=== PATIENT | female | born 1935 | race Caucasian/White ===

== ENCOUNTER 2016-10-07 07:02 | Outpatient (CLI) | payer MEDICARE, BC | END 2016-10-07 07:03 | disposition home or self-care (01) | DX: I48.91 Unspecified atrial fibrillation (principal); Z79.01 Long term (current) use of anticoagulants ==

== ENCOUNTER 2016-11-04 06:56 | Outpatient (CLI) | payer MEDICARE, BC | END 2016-11-04 06:57 | disposition home or self-care (01) | DX: I48.91 Unspecified atrial fibrillation (principal); Z79.01 Long term (current) use of anticoagulants ==

== ENCOUNTER 2016-12-02 06:59 | Outpatient (CLI) | payer MEDICARE, BC | END 2016-12-02 07:00 | disposition home or self-care (01) | DX: I48.91 Unspecified atrial fibrillation (principal); Z79.01 Long term (current) use of anticoagulants ==

== ENCOUNTER 2016-12-30 06:54 | Outpatient (CLI) | payer MEDICARE, BC | END 2016-12-30 06:55 | disposition home or self-care (01) | DX: I48.91 Unspecified atrial fibrillation (principal); Z79.01 Long term (current) use of anticoagulants ==

== ENCOUNTER 2017-01-27 06:52 | Outpatient (CLI) | payer MEDICARE, BC | END 2017-01-27 06:53 | disposition home or self-care (01) | DX: I48.91 Unspecified atrial fibrillation (principal); Z79.01 Long term (current) use of anticoagulants ==

== ENCOUNTER 2017-02-03 06:54 | Outpatient (CLI) | payer MEDICARE, BC | END 2017-02-03 06:55 | disposition home or self-care (01) | LOC: LAB 06:54 | PROVIDERS: ATTEND Internal Medicine | DX: I48.91 Unspecified atrial fibrillation (principal); Z79.01 Long term (current) use of anticoagulants | CPT/HCPCS: 85610 ==

== ENCOUNTER 2017-03-03 06:49 | Outpatient (CLI) | payer MEDICARE, BC | END 2017-03-03 06:50 | disposition home or self-care (01) | LOC: LAB 06:49 | PROVIDERS: ATTEND Internal Medicine | DX: I48.91 Unspecified atrial fibrillation (principal); Z79.01 Long term (current) use of anticoagulants | CPT/HCPCS: 85610 ==

== ENCOUNTER 2017-03-31 06:56 | Outpatient (CLI) | payer MEDICARE, BC | END 2017-03-31 06:57 | disposition home or self-care (01) | LOC: LAB 06:56 | PROVIDERS: ATTEND Internal Medicine | DX: I48.91 Unspecified atrial fibrillation (principal); Z79.01 Long term (current) use of anticoagulants | CPT/HCPCS: 85610 ==

== ENCOUNTER 2017-04-18 06:57 | Outpatient (CLI) | payer MEDICARE, BC | END 2017-04-18 06:58 | disposition home or self-care (01) | LOC: LAB 06:57 | PROVIDERS: ATTEND Internal Medicine | DX: I48.91 Unspecified atrial fibrillation (principal); Z79.01 Long term (current) use of anticoagulants | CPT/HCPCS: 85610 ==

== ENCOUNTER 2017-04-21 10:49 | Outpatient (CLI) | payer MEDICARE, BC ==
[2017-04-21 11:16] LABS: CREATININE 0.7 mg/dL (0.4-1.0)
== END 2017-04-21 10:50 | disposition home or self-care (01) ==
LOC: LAB 10:49
PROVIDERS: ATTEND Surgery
DX: C50.912 Malignant neoplasm of unspecified site of left female breast (principal)
CPT/HCPCS: 36415; 82565; 84520

== ENCOUNTER 2017-04-22 08:39 | Outpatient (CLI) | payer MEDICARE, BC ==
[2017-04-22] MEDS ORDERED: GADOBUTROL 7.5 MMOL/7.5 ML VIAL IVP ONE (09:43)
--- NOTE | 2017-04-22 16:49 | MRI Report ---
BILATERAL BREAST MRI WITH AND WITHOUT CONTRAST: 04/22/2017 CLINICAL INDICATION: Biopsy-proven left breast cancer. TECHNIQUE: Using a dedicated breast coil, axial precontrast STIR, dynamic postcontrast axial 3D images, axial 3D high-resolution images, and postcontrast diffusion-weighted images were obtained; 5 mL of Gadavist was administered intravenously. Postprocessing with dynamic contrast enhancement analysis and multiplanar reformations were performed with [employer] FINDINGS: The breasts demonstrate moderate background parenchymal enhancement. RIGHT BREAST: No mass or abnormal enhancement is appreciated in the right breast. The right axillary lymph nodes appear morphologically normal. LEFT BREAST: The biopsy proven left breast cancer in the axillary tail is seen , measuring 2.3 x 2.2 x 2.0 cm. It only demonstrates moderate rapid enhancement with washout. No other mass or abnormal enhancement is seen in the left breast. There is no evidence of skin, nipple, or chest wall involvement. The left axillary lymph nodes appear morphologically normal. IMPRESSION: BIOPSY-PROVEN LEFT BREAST CANCER, MEASURING 2.3 CM MAXIMAL DIAMETER. NO EVIDENCE OF SKIN, NIPPLE, OR CHEST WALL INVOLVEMENT. RECOMMENDATION: Continued surgical management. BI-RADS category 6, known malignancy. COMMENT: Breast MRI is a highly sensitive examination, and has a cancer detection threshold down to approximately 5 mm; however, it only has moderate specificity. Although breast MRI has a high negative predicted value, appropriate clinical and mammographic followup are always necessary. MRI may miss less angiogenic tumors; therefore, it should not be used to avoid a biopsy which is otherwise clinically indicated. Normal appearing lymph nodes may contain microscopic tumor. Due to prone positioning, the described location of findings may differ from other modalities. JOB #: [id number] EXT JOB #: [id number] JENNIFER
== END 2017-04-22 08:40 | disposition home or self-care (01) ==
LOC: LAB 08:39
PROVIDERS: ATTEND Surgery
DX: C50.912 Malignant neoplasm of unspecified site of left female breast (principal)
CPT/HCPCS: A9585; C8908; 77059

== ENCOUNTER 2017-05-02 06:55 | Outpatient (CLI) | payer MEDICARE, BC | END 2017-05-02 06:56 | disposition home or self-care (01) | LOC: LAB 06:55 | PROVIDERS: ATTEND Internal Medicine | DX: I48.91 Unspecified atrial fibrillation (principal); Z79.01 Long term (current) use of anticoagulants | CPT/HCPCS: 85610 ==

== ENCOUNTER 2017-05-26 06:52 | Outpatient (CLI) | payer MEDICARE, BC | END 2017-05-26 06:53 | disposition home or self-care (01) | LOC: LAB 06:52 | PROVIDERS: ATTEND Internal Medicine | DX: I48.91 Unspecified atrial fibrillation (principal); Z79.01 Long term (current) use of anticoagulants | CPT/HCPCS: 85610 ==

== ENCOUNTER 2017-06-09 07:00 | Outpatient (CLI) | payer MEDICARE, BC | END 2017-06-09 07:01 | disposition home or self-care (01) | LOC: LAB 07:00 | PROVIDERS: ATTEND Internal Medicine | DX: I48.91 Unspecified atrial fibrillation (principal); Z79.01 Long term (current) use of anticoagulants | CPT/HCPCS: 85610 ==

== ENCOUNTER 2017-06-23 06:55 | Outpatient (CLI) | payer MEDICARE, BC | END 2017-06-23 06:56 | disposition home or self-care (01) | LOC: LAB 06:55 | PROVIDERS: ATTEND Internal Medicine | DX: I48.91 Unspecified atrial fibrillation (principal); Z79.01 Long term (current) use of anticoagulants | CPT/HCPCS: 85610 ==

== ENCOUNTER 2017-07-21 06:52 | Outpatient (CLI) | payer MEDICARE, BC | END 2017-07-21 06:53 | disposition home or self-care (01) | LOC: LAB 06:52 | PROVIDERS: ATTEND Internal Medicine | DX: I48.91 Unspecified atrial fibrillation (principal); Z79.01 Long term (current) use of anticoagulants | CPT/HCPCS: 85610 ==

== ENCOUNTER 2017-08-18 07:15 | Outpatient (CLI) | payer MEDICARE, BC ==
[2017-08-18 07:48] LABS: PT - PROTHROMBIN TIME 50.7 secs (9.9-12.6)
[2017-08-18 08:06] LABS: INR 4.8 (0.8-1.2)
== END 2017-08-18 07:16 | disposition home or self-care (01) ==
LOC: LAB 07:15
PROVIDERS: ATTEND Internal Medicine
DX: I48.91 Unspecified atrial fibrillation (principal); Z79.01 Long term (current) use of anticoagulants
CPT/HCPCS: 85610

== ENCOUNTER 2017-09-01 07:15 | Outpatient (CLI) | payer MEDICARE, BC | END 2017-09-01 07:16 | disposition home or self-care (01) | LOC: LAB 07:15 | PROVIDERS: ATTEND Internal Medicine | DX: I48.91 Unspecified atrial fibrillation (principal); Z79.01 Long term (current) use of anticoagulants | CPT/HCPCS: 85610 ==

== ENCOUNTER 2017-09-06 10:09 | Outpatient (CLI) | payer MEDICARE, BC ==
--- NOTE | 2017-09-07 19:06 | Ultrasound Report ---
DATE OF SERVICE: 09/06/2017 LEFT BREAST ULTRASOUND: 09/06/2017 CLINICAL INDICATION: Recent lumpectomy for left breast cancer, possible seroma at surgery site. COMPARISON: Diagnostic mammogram of the same day. TECHNIQUE: Real-time scanning was performed with client care representative static images obtained. FINDINGS: Ultrasound of the palpable abnormality in the left upper outer quadrant was performed. At this site, there is a complex fluid collection, measuring 3.7 x 2.1 x 2.9 cm. No abnormal flow is identif ied. No sonographically suspicious findings are identified. IMPRESSION: A 3.7 cm seroma in the operative bed. RECOMMENDATIONS: Diagnostic bilateral mammogram in 6 months. BIRADS category 3 - Probable benign findings. TD: 09/06/2017 19:43
--- NOTE | 2017-09-08 16:12 | Mammography Report ---
DATE OF SERVICE: 09/06/2017 DIGITAL DIAGNOSTIC LEFT MAMMOGRAM: 09/06/2017 CLINICAL INDICATION: Postop lumpectomy for left breast cancer, palpable abnormality in the surgical bed. COMPARISON: 04/11/2017, 03/24/2017, 06/04/2011, 02/26/2010. TECHNIQUE: Left CC, MLO, true lateral and spot magnification views. FINDINGS: The left breast demonstrates scattered fibroglandular densities. At the lumpectomy site in the left upper outer posterior breast, there is a lobulated circumscribed nodule, measuring 3.5 cm in diameter. No associated calcifications are seen. Post-radiation changes are evident. Please also refer to left breast ultrasound of the same day. IMPRESSION: Probable benign findings, with a postoperative seroma in the surgical bed. RECOMMENDATION: Diagnostic bilateral mammogram in 6 months. BIRADS category 3 - Probable benign findings. STANDARD QUALIFYING STATEMENTS 1. This examination was reviewed with the aid of Computed-Aided Detection (CAD) . 2. A negative or benign imaging report should not delay biopsy if clinically suspicious findings are present. Consider surgical consultation if warranted. More than 5% of cancers are not identified by imaging. 3. Dense breasts may obscure an underlying neoplasm. TD: 09/06/2017 19:48 JENNIFER
== END 2017-09-06 10:10 | disposition home or self-care (01) ==
LOC: DI 10:09
PROVIDERS: ATTEND Internal Medicine
DX: L76.34 Postprocedural seroma of skin and subcutaneous tissue following other procedure (principal)
CPT/HCPCS: 76642; G0206

== ENCOUNTER 2017-09-15 07:02 | Outpatient (CLI) | payer MEDICARE, BC | END 2017-09-15 07:03 | disposition home or self-care (01) | LOC: LAB 07:02 | PROVIDERS: ATTEND Internal Medicine | DX: I48.91 Unspecified atrial fibrillation (principal); Z79.01 Long term (current) use of anticoagulants | CPT/HCPCS: 85610 ==

== ENCOUNTER 2017-09-22 06:50 | Outpatient (CLI) | payer MEDICARE, BC | END 2017-09-22 06:51 | disposition home or self-care (01) | LOC: LAB 06:50 | PROVIDERS: ATTEND Internal Medicine | DX: I48.91 Unspecified atrial fibrillation (principal); Z79.01 Long term (current) use of anticoagulants | CPT/HCPCS: 85610 ==

== ENCOUNTER 2017-10-06 06:53 | Outpatient (CLI) | payer MEDICARE, BC | END 2017-10-06 06:54 | disposition home or self-care (01) | LOC: LAB 06:53 | PROVIDERS: ATTEND Internal Medicine | DX: I48.91 Unspecified atrial fibrillation (principal); Z79.01 Long term (current) use of anticoagulants | CPT/HCPCS: 85610 ==

== ENCOUNTER 2017-10-13 06:58 | Outpatient (CLI) | payer MEDICARE, BC | END 2017-10-13 06:59 | disposition home or self-care (01) | LOC: LAB 06:58 | PROVIDERS: ATTEND Internal Medicine | DX: I48.91 Unspecified atrial fibrillation (principal); Z79.01 Long term (current) use of anticoagulants | CPT/HCPCS: 85610 ==

== ENCOUNTER 2017-10-27 07:23 | Outpatient (CLI) | payer MEDICARE, BC | END 2017-10-27 07:24 | disposition home or self-care (01) | LOC: LAB 07:23 | PROVIDERS: ATTEND Internal Medicine | DX: I48.91 Unspecified atrial fibrillation (principal); Z79.01 Long term (current) use of anticoagulants | CPT/HCPCS: 85610 ==

== ENCOUNTER 2017-11-10 06:58 | Outpatient (CLI) | payer MEDICARE, BC | END 2017-11-10 06:59 | disposition home or self-care (01) | LOC: LAB 06:58 | PROVIDERS: ATTEND Internal Medicine | DX: I48.91 Unspecified atrial fibrillation (principal); Z79.01 Long term (current) use of anticoagulants | CPT/HCPCS: 85610 ==

== ENCOUNTER 2017-12-01 06:56 | Outpatient (CLI) | payer MEDICARE, BC | END 2017-12-01 06:57 | disposition home or self-care (01) | LOC: LAB 06:56 | PROVIDERS: ATTEND Internal Medicine | DX: I48.91 Unspecified atrial fibrillation (principal); Z79.01 Long term (current) use of anticoagulants | CPT/HCPCS: 85610 ==

== ENCOUNTER 2017-12-15 13:41 | Outpatient (CLI) | payer MEDICARE, BC ==
--- NOTE | 2017-12-16 15:12 | Ultrasound Report ---
REVISED: REPORT ORIGINALLY SIGNED ON 12/16/2017@1520; ORDERS LINKED ON 2017 jll LEFT BREAST MAMMOGRAM, AND ULTRASOUND: 12/15/2017 HISTORY: Left breast cancer, status post surgery and radiation therapy. Left upper outer quadrant lump. COMPARISON: 09/06/2017, 04/11/2017, 03/24/2017, 06/04/2011, and 02/26/2010. TECHNIQUE: Unilateral left digital mammography to include spot compression views. FINDINGS: The breast tissue is heterogeneously dense. There is diffuse skin thickening consistent with radiation therapy. In the left upper outer quadrant, there is a lobulated mass which has decreased both in size and density since 09/06/2017. Vascular calcification is present. There is no new dominant mass, architectural distortion, suspicious clustered microcalcifications or other abnormality. LEFT BREAST ULTRASOUND TECHNIQUE: Real-time scanning by the operational risk manager with saved static images reviewed. COMPARISON: Ultrasound 09/06/2017. FINDINGS: There is a complex cystic and solid collection in the left upper quadrant similar in overall appearance, but decreased in size, currently measuring 2.9 x 3.2 x 2.0 cm, previously 2.9 x 3.7 x 2.1 cm. No suspicious features are seen. IMPRESSION: LEFT UPPER OUTER QUADRANT SEROMA HAS MINIMALLY DECREASED IN SIZE COMPARED WITH 09/06/2017. DIFFUSE LEFT BREAST SKIN THICKENING IS CONSISTENT WITH RADIATION THERAPY CHANGE. NO SUSPICIOUS NEW FINDINGS ARE SEEN. PROBABLY BENIGN - BI-RADS 3. RECOMMENDATION: Suggest followup diagnostic left breast mammogram in 6 months and clinical followup with her breast surgeon. STANDARD QUALIFYING STATEMENTS 1. This examination was reviewed with the aid of Computed-Aided Detection (CAD) . 2. A negative or benign imaging report should not delay biopsy if clinically suspicious findings are present. Consider surgical consultation if warranted. More than 5 % of cancers are not identified by imaging. 3. Dense breasts may obscure an underlying neoplasm. TD: 12/15/2017 17:24 JENNIFER
== END 2017-12-15 13:42 | disposition home or self-care (01) ==
LOC: DI 13:41
PROVIDERS: ATTEND Internal Medicine
DX: C50.912 Malignant neoplasm of unspecified site of left female breast (principal); N64.89 Other specified disorders of breast
CPT/HCPCS: 76642

== ENCOUNTER 2017-12-29 06:58 | Outpatient (CLI) | payer MEDICARE, BC | END 2017-12-29 06:59 | disposition home or self-care (01) | LOC: LAB 06:58 | PROVIDERS: ATTEND Internal Medicine | DX: I48.91 Unspecified atrial fibrillation (principal); Z79.01 Long term (current) use of anticoagulants | CPT/HCPCS: 85610 ==

== ENCOUNTER 2018-01-12 06:52 | Outpatient (CLI) | payer MEDICARE, BC | END 2018-01-12 06:53 | disposition home or self-care (01) | LOC: LAB 06:52 | PROVIDERS: ATTEND Internal Medicine | DX: I48.91 Unspecified atrial fibrillation (principal); Z79.01 Long term (current) use of anticoagulants | CPT/HCPCS: 85610 ==

== ENCOUNTER 2018-01-26 06:56 | Outpatient (CLI) | payer MEDICARE, BC | END 2018-01-26 06:57 | disposition home or self-care (01) | LOC: LAB 06:56 | PROVIDERS: ATTEND Internal Medicine | DX: I48.91 Unspecified atrial fibrillation (principal); Z79.01 Long term (current) use of anticoagulants | CPT/HCPCS: 85610 ==

== ENCOUNTER 2018-02-09 06:52 | Outpatient (CLI) | payer MEDICARE, BC | END 2018-02-09 06:53 | disposition home or self-care (01) | LOC: LAB 06:52 | PROVIDERS: ATTEND Internal Medicine | DX: I48.91 Unspecified atrial fibrillation (principal); Z79.01 Long term (current) use of anticoagulants | CPT/HCPCS: 85610 ==

== ENCOUNTER 2018-03-09 06:53 | Outpatient (CLI) | payer MEDICARE, BC ==
[2018-03-09 09:03] LABS: INR 3.7 (0.8-1.2); PT - PROTHROMBIN TIME 39.3 secs (9.9-12.6)
== END 2018-03-09 06:54 | disposition home or self-care (01) ==
LOC: LAB 06:53
PROVIDERS: ATTEND Internal Medicine
DX: I48.91 Unspecified atrial fibrillation (principal); Z79.01 Long term (current) use of anticoagulants
CPT/HCPCS: 36415; 85610

== ENCOUNTER 2018-03-23 06:57 | Outpatient (CLI) | payer MEDICARE, BC | END 2018-03-23 06:58 | disposition home or self-care (01) | LOC: LAB 06:57 | PROVIDERS: ATTEND Internal Medicine | DX: I48.91 Unspecified atrial fibrillation (principal); Z79.01 Long term (current) use of anticoagulants | CPT/HCPCS: 85610 ==

== ENCOUNTER 2018-03-30 06:49 | Outpatient (CLI) | payer MEDICARE, BC | END 2018-03-30 06:50 | disposition home or self-care (01) | LOC: LAB 06:49 | PROVIDERS: ATTEND Internal Medicine | DX: I48.91 Unspecified atrial fibrillation (principal); Z79.01 Long term (current) use of anticoagulants | CPT/HCPCS: 85610 ==

== ENCOUNTER 2018-04-06 06:54 | Outpatient (CLI) | payer MEDICARE, BC | END 2018-04-06 06:55 | disposition home or self-care (01) | LOC: LAB 06:54 | PROVIDERS: ATTEND Internal Medicine | DX: I48.91 Unspecified atrial fibrillation (principal); Z79.01 Long term (current) use of anticoagulants | CPT/HCPCS: 85610 ==

== ENCOUNTER 2018-04-20 06:52 | Outpatient (CLI) | payer MEDICARE, BC | END 2018-04-20 06:53 | disposition home or self-care (01) | LOC: LAB 06:52 | PROVIDERS: ATTEND Internal Medicine | DX: I48.91 Unspecified atrial fibrillation (principal); Z79.01 Long term (current) use of anticoagulants | CPT/HCPCS: 85610 ==

== ENCOUNTER 2018-05-04 06:53 | Outpatient (CLI) | payer MEDICARE, BC | END 2018-05-04 06:54 | disposition home or self-care (01) | LOC: LAB 06:53 | PROVIDERS: ATTEND Internal Medicine | DX: I48.91 Unspecified atrial fibrillation (principal); Z79.01 Long term (current) use of anticoagulants | CPT/HCPCS: 85610 ==

== ENCOUNTER 2018-06-01 06:53 | Outpatient (CLI) | payer MEDICARE, BC | END 2018-06-01 06:54 | disposition home or self-care (01) | LOC: LAB 06:53 | PROVIDERS: ATTEND Internal Medicine | DX: I48.91 Unspecified atrial fibrillation (principal); Z79.01 Long term (current) use of anticoagulants | CPT/HCPCS: 85610 ==

== ENCOUNTER 2018-06-29 07:03 | Outpatient (CLI) | payer MEDICARE, BC | END 2018-06-29 07:04 | disposition home or self-care (01) | LOC: LAB 07:03 | PROVIDERS: ATTEND Internal Medicine | DX: I48.91 Unspecified atrial fibrillation (principal); Z79.01 Long term (current) use of anticoagulants | CPT/HCPCS: 85610 ==

== ENCOUNTER 2018-07-06 12:22 | Outpatient (CLI) | payer MEDICARE, BC ==
--- NOTE | 2018-07-07 10:15 | XRAY Report ---
Reason: COCCYX PAIN,SACROILIAC PAIN Procedure Date: 07/06/2018 Accession Number: [id number] / [id number] Procedure: XR - Sacrum/Coccyx CPT Code: FULL RESULT: EXAM: SACRUM AND COCCYX RADIOGRAPHY. EXAM DATE: 07/06/2018 01:03 PM. HISTORY: Coccyx pain, sacroiliac pain. History of osteoporosis. COMPARISONS: None. TECHNIQUE: 3 views. FINDINGS: Alignment: Anatomic alignment. Expected segmentation of the coccyx. No bony erosions. No periosteal reaction or distinct evidence for erosions. Bones: No acute fracture or bony lesion. Bones appear demineralized. Joints: Degenerative change of the lower lumbar spine and both sacroiliac joints and both hip joints. Soft Tissues: Vascular calcifications. IMPRESSION: 1. No acute osseous abnormalities. 2. Degenerative changes. RADIA
== END 2018-07-06 12:23 | disposition home or self-care (01) ==
LOC: DI 12:22
PROVIDERS: ATTEND Nurse Practitioner Primary Care
DX: M53.3 Sacrococcygeal disorders, not elsewhere classified (principal)
CPT/HCPCS: 72220

== ENCOUNTER 2018-07-13 07:07 | Outpatient (CLI) | payer MEDICARE, BC | END 2018-07-13 07:08 | disposition home or self-care (01) | LOC: LAB 07:07 | PROVIDERS: ATTEND Internal Medicine | DX: I48.91 Unspecified atrial fibrillation (principal); Z79.01 Long term (current) use of anticoagulants | CPT/HCPCS: 85610 ==

== ENCOUNTER 2018-08-09 12:01 | Outpatient (CLI) | payer MEDICARE, BC ==
--- NOTE | 2018-08-09 13:33 | Mammography Report ---
Reason: LT BREAST CA Procedure Date: 08/09/2018 Accession Number: [id number] / [id number] Procedure: ALYSSA - Diagnostic Dig LT CPT Code: FULL RESULT: EXAM: Diagnostic Dig LT DATE: 08/09/2018 1:02 PM CLINICAL HISTORY: 83-year-old female with history of left breast lumpectomy in May 2017 presents for six-month follow-up diagnostic mammogram. TECHNIQUE: Left breast CC, MLO, ML and exaggerated CC views were obtained COMPARISON: Prior studies dating back to 03/24/2017. FINDINGS: The left breast demonstrates heterogeneously dense fibroglandular parenchyma. Postoperative changes including a decreasing well-circumscribed mass previously characterized as seroma which has decreased in size and now measures 2.1 x 1.9 cm, probably benign. Typically benign vascular calcifications are again seen. No suspicious mass, architectural distortion or calcifications are identified. IMPRESSION: Probable benign findings RECOMMENDATION: Recommend diagnostic bilateral mammogram in 6 months. BIRADS CATEGORY 3 STANDARD QUALIFYING STATEMENTS: 1. This examination was not reviewed with the aid of Computer-Aided Detection (CAD). 2. A negative or benign imaging report should not delay biopsy if clinically suspicious findings are present. Consider surgical consultation if warrented. More than 5% of cancers are not identified by imaging. 3. Dense breasts may obscure an underlying neoplasm. 4. This examination was reviewed with the aid of 3D imaging (tomography).
== END 2018-08-09 12:02 | disposition home or self-care (01) ==
LOC: DI 12:01
PROVIDERS: ATTEND Internal Medicine
DX: C50.912 Malignant neoplasm of unspecified site of left female breast (principal)

== ENCOUNTER 2018-08-10 06:56 | Outpatient (CLI) | payer MEDICARE, BC | END 2018-08-10 06:57 | disposition home or self-care (01) | LOC: LAB 06:56 | PROVIDERS: ATTEND Internal Medicine | DX: I48.91 Unspecified atrial fibrillation (principal); Z79.01 Long term (current) use of anticoagulants | CPT/HCPCS: 85610 ==

== ENCOUNTER 2018-08-25 07:19 | Outpatient (CLI) | payer MEDICARE, BC ==
[2018-08-25 07:54] LABS: CHOL/HDL RATIO 2.3 (<4.4); CHOLESTEROL 195 mg/dL; HDL CHOLESTEROL 84 mg/dL; LDL CHOLESTEROL,CALCULATED 95 mg/dL; LDL/HDL RATIO 1.1 (<4.4); VLDL CHOLESTEROL 16 mg/dL
== END 2018-08-25 07:20 | disposition home or self-care (01) ==
LOC: LAB 07:19
PROVIDERS: ATTEND Nurse Practitioner Primary Care
DX: Z79.899 Other long term (current) drug therapy (principal); I48.0 Paroxysmal atrial fibrillation; E78.5 Hyperlipidemia, unspecified
CPT/HCPCS: 36415; 80061; 83721; 84443

== ENCOUNTER 2018-09-07 07:17 | Outpatient (CLI) | payer MEDICARE, BC | END 2018-09-07 07:18 | disposition home or self-care (01) | LOC: LAB 07:17 | PROVIDERS: ATTEND Internal Medicine | DX: I48.91 Unspecified atrial fibrillation (principal); Z79.01 Long term (current) use of anticoagulants | CPT/HCPCS: 85610 ==

== ENCOUNTER 2018-10-05 07:13 | Outpatient (CLI) | payer MEDICARE, BC | END 2018-10-05 07:14 | disposition home or self-care (01) | LOC: LAB 07:13 | PROVIDERS: ATTEND Internal Medicine | DX: I48.91 Unspecified atrial fibrillation (principal); Z79.01 Long term (current) use of anticoagulants | CPT/HCPCS: 85610 ==

== ENCOUNTER 2018-11-02 07:11 | Outpatient (CLI) | payer MEDICARE, BC | END 2018-11-02 07:12 | disposition home or self-care (01) | LOC: LAB 07:11 | PROVIDERS: ATTEND Internal Medicine | DX: I48.91 Unspecified atrial fibrillation (principal); Z79.01 Long term (current) use of anticoagulants | CPT/HCPCS: 85610 ==

== ENCOUNTER 2018-12-07 07:06 | Outpatient (CLI) | payer MEDICARE, BC | END 2018-12-07 07:07 | disposition home or self-care (01) | LOC: LAB 07:06 | PROVIDERS: ATTEND Internal Medicine | DX: I48.0 Paroxysmal atrial fibrillation (principal); Z79.01 Long term (current) use of anticoagulants | CPT/HCPCS: 85610 ==

== ENCOUNTER 2018-12-19 07:12 | Outpatient (CLI) | payer MEDICARE, BC | END 2018-12-19 07:13 | disposition home or self-care (01) | LOC: LAB 07:12 | PROVIDERS: ATTEND Internal Medicine | DX: I48.0 Paroxysmal atrial fibrillation (principal); Z79.01 Long term (current) use of anticoagulants | CPT/HCPCS: 85610 ==

== ENCOUNTER 2018-12-26 07:28 | Outpatient (CLI) | payer MEDICARE, BC | END 2018-12-26 07:29 | disposition home or self-care (01) | LOC: LAB 07:28 | PROVIDERS: ATTEND Internal Medicine | DX: I48.0 Paroxysmal atrial fibrillation (principal); Z79.01 Long term (current) use of anticoagulants | CPT/HCPCS: 85610 ==

== ENCOUNTER 2019-01-02 07:03 | Outpatient (CLI) | payer MEDICARE, BC | END 2019-01-02 07:04 | disposition home or self-care (01) | LOC: LAB 07:03 | PROVIDERS: ATTEND Internal Medicine | DX: I48.0 Paroxysmal atrial fibrillation (principal); Z79.01 Long term (current) use of anticoagulants | CPT/HCPCS: 85610 ==

== ENCOUNTER 2019-01-09 07:18 | Outpatient (CLI) | payer MEDICARE, BC | END 2019-01-09 07:19 | disposition home or self-care (01) | LOC: LAB 07:18 | PROVIDERS: ATTEND Internal Medicine | DX: I48.0 Paroxysmal atrial fibrillation (principal); Z79.01 Long term (current) use of anticoagulants | CPT/HCPCS: 85610 ==

== ENCOUNTER 2019-01-15 11:54 | Outpatient (CLI) | payer MEDICARE, BC ==
--- NOTE | 2019-01-15 15:00 | Mammography Report ---
Reason: L BREAST CANCER Procedure Date: 01/15/2019 Accession Number: [id number] / [id number] Procedure: ALYSSA - Diagnostic Dig Bilat CPT Code: FULL RESULT: EXAM: Diagnostic Dig Bilat DATE: 01/15/2019 1:52 PM CLINICAL HISTORY: Diagnostic examination. Personal history of left breast cancer status post lumpectomy and radiation in 2017. History of negative right breast biopsy in 2017. TECHNIQUE: (B) - Bilateral CC and MLO views were obtained. A left laterally exaggerated cc view is obtained. COMPARISON: 08/09/2018 through 02/26/2010. PARENCHYMAL PATTERN: (D) - The breast(s) demonstrate(s) heterogeneously dense fibroglandular parenchyma. FINDINGS: Posttreatment changes including skin thickening of the left breast are redemonstrated with expected interval evolution in the surgical bed in the surgical bed. There are bilateral typically benign vascular calcifications. There are right typically benign calcifications. A biopsy marker is seen on the right. There are no suspicious masses, calcifications, or areas of distortion. IMPRESSION: Probably Benign. BI-RADS category 3. RECOMMENDATION: (6MOS) - Recommend 6 month follow-up exam. Left breast diagnostic mammogram. BI-RADS CATEGORY: (3) - Probably Benign. STANDARD QUALIFYING STATEMENTS: 1. This examination was not reviewed with the aid of Computer-Aided Detection (CAD). 2. A negative or benign imaging report should not preclude biopsy if clinically suspicious findings are present. 3. Dense breasts may obscure an underlying neoplasm. 4. This examination was reviewed without the aid of 3D breast imaging (tomosynthesis).
== END 2019-01-15 11:55 | disposition home or self-care (01) ==
LOC: DI 11:54
PROVIDERS: ATTEND Internal Medicine
DX: C50.912 Malignant neoplasm of unspecified site of left female breast (principal)
CPT/HCPCS: 77066

== ENCOUNTER 2019-01-16 07:13 | Outpatient (CLI) | payer MEDICARE, BC | END 2019-01-16 07:14 | disposition home or self-care (01) | LOC: LAB 07:13 | PROVIDERS: ATTEND Internal Medicine | DX: I48.0 Paroxysmal atrial fibrillation (principal); Z79.01 Long term (current) use of anticoagulants | CPT/HCPCS: 85610 ==

== ENCOUNTER 2019-01-23 07:00 | Outpatient (CLI) | payer MEDICARE, BC | END 2019-01-23 07:01 | disposition home or self-care (01) | LOC: LAB 07:00 | PROVIDERS: ATTEND Internal Medicine | DX: I48.0 Paroxysmal atrial fibrillation (principal); Z79.01 Long term (current) use of anticoagulants | CPT/HCPCS: 85610 ==

== ENCOUNTER 2019-01-30 06:59 | Outpatient (CLI) | payer MEDICARE, BC | END 2019-01-30 07:00 | disposition home or self-care (01) | LOC: LAB 06:59 | PROVIDERS: ATTEND Internal Medicine | DX: I48.0 Paroxysmal atrial fibrillation (principal); Z79.01 Long term (current) use of anticoagulants | CPT/HCPCS: 85610 ==

== ENCOUNTER 2019-02-06 07:07 | Outpatient (CLI) | payer MEDICARE, BC | END 2019-02-06 07:08 | disposition home or self-care (01) | LOC: LAB 07:07 | PROVIDERS: ATTEND Internal Medicine | DX: I48.0 Paroxysmal atrial fibrillation (principal); Z79.01 Long term (current) use of anticoagulants | CPT/HCPCS: 85610 ==

== ENCOUNTER 2019-02-13 06:57 | Outpatient (CLI) | payer MEDICARE, BC | END 2019-02-13 06:58 | disposition home or self-care (01) | LOC: LAB 06:57 | PROVIDERS: ATTEND Internal Medicine | DX: I48.0 Paroxysmal atrial fibrillation (principal); Z79.01 Long term (current) use of anticoagulants | CPT/HCPCS: 85610 ==

== ENCOUNTER 2019-02-20 07:01 | Outpatient (CLI) | payer MEDICARE, BC | END 2019-02-20 07:02 | disposition home or self-care (01) | LOC: LAB 07:01 | PROVIDERS: ATTEND Internal Medicine | DX: I48.0 Paroxysmal atrial fibrillation (principal); Z79.01 Long term (current) use of anticoagulants | CPT/HCPCS: 36415; 85610 ==

== ENCOUNTER 2019-02-27 07:05 | Outpatient (CLI) | payer MEDICARE, BC | END 2019-02-27 07:06 | disposition home or self-care (01) | LOC: LAB 07:05 | PROVIDERS: ATTEND Internal Medicine | DX: I48.0 Paroxysmal atrial fibrillation (principal); Z79.01 Long term (current) use of anticoagulants | CPT/HCPCS: 85610 ==

== ENCOUNTER 2019-03-06 07:17 | Outpatient (CLI) | payer MEDICARE, BC | END 2019-03-06 07:18 | disposition home or self-care (01) | LOC: LAB 07:17 | PROVIDERS: ATTEND Internal Medicine | DX: I48.0 Paroxysmal atrial fibrillation (principal); Z79.01 Long term (current) use of anticoagulants | CPT/HCPCS: 85610 ==

== ENCOUNTER 2019-03-13 07:02 | Outpatient (CLI) | payer MEDICARE, BC | END 2019-03-13 07:03 | disposition home or self-care (01) | LOC: LAB 07:02 | PROVIDERS: ATTEND Internal Medicine | DX: I48.0 Paroxysmal atrial fibrillation (principal); Z79.01 Long term (current) use of anticoagulants | CPT/HCPCS: 85610 ==

== ENCOUNTER 2019-03-20 07:06 | Outpatient (CLI) | payer MEDICARE, BC | END 2019-03-20 07:07 | disposition home or self-care (01) | LOC: LAB 07:06 | PROVIDERS: ATTEND Internal Medicine | DX: I48.0 Paroxysmal atrial fibrillation (principal); Z79.01 Long term (current) use of anticoagulants | CPT/HCPCS: 85610 ==

== ENCOUNTER 2019-03-27 07:01 | Outpatient (CLI) | payer MEDICARE, BC | END 2019-03-27 07:02 | disposition home or self-care (01) | LOC: LAB 07:01 | PROVIDERS: ATTEND Internal Medicine | DX: I48.0 Paroxysmal atrial fibrillation (principal); Z79.01 Long term (current) use of anticoagulants | CPT/HCPCS: 85610 ==

== ENCOUNTER 2019-04-10 06:53 | Outpatient (CLI) | payer MEDICARE, BC | END 2019-04-10 06:54 | disposition home or self-care (01) | LOC: LAB 06:53 | PROVIDERS: ATTEND Internal Medicine | DX: I48.0 Paroxysmal atrial fibrillation (principal); Z79.01 Long term (current) use of anticoagulants | CPT/HCPCS: 85610 ==

== ENCOUNTER 2019-04-19 06:58 | Outpatient (CLI) | payer MEDICARE, BC | END 2019-04-19 06:59 | disposition home or self-care (01) | LOC: LAB 06:58 | PROVIDERS: ATTEND Internal Medicine | DX: I48.0 Paroxysmal atrial fibrillation (principal); Z79.01 Long term (current) use of anticoagulants | CPT/HCPCS: 36415; 85610 ==

== ENCOUNTER 2019-04-26 06:53 | Outpatient (CLI) | payer MEDICARE, BC | END 2019-04-26 06:54 | disposition home or self-care (01) | LOC: LAB 06:53 | PROVIDERS: ATTEND Internal Medicine | DX: I48.0 Paroxysmal atrial fibrillation (principal); Z79.01 Long term (current) use of anticoagulants | CPT/HCPCS: 36415; 85610 ==

== ENCOUNTER 2019-05-03 06:50 | Outpatient (CLI) | payer MEDICARE, BC | END 2019-05-03 06:51 | disposition home or self-care (01) | LOC: LAB 06:50 | PROVIDERS: ATTEND Internal Medicine | DX: I48.0 Paroxysmal atrial fibrillation (principal); Z79.01 Long term (current) use of anticoagulants | CPT/HCPCS: 85610 ==

== ENCOUNTER 2019-05-10 06:51 | Outpatient (CLI) | payer MEDICARE, BC | END 2019-05-10 06:52 | disposition home or self-care (01) | LOC: LAB 06:51 | PROVIDERS: ATTEND Internal Medicine | DX: I48.0 Paroxysmal atrial fibrillation (principal); Z79.01 Long term (current) use of anticoagulants | CPT/HCPCS: 85610 ==

== ENCOUNTER 2019-05-25 13:10 | Outpatient (CLI) | payer MEDICARE, BC ==
[2019-05-25 14:08] LABS: ALBUMIN 3.8 g/dL (3.2-5.5); ALBUMIN/GLOBULIN RATIO 1.2 (1.0-2.2); BILIRUBIN,TOTAL 0.8 mg/dL (0.2-1.0); CALCIUM 9.3 mg/dL (8.5-10.3); CREATININE 0.8 mg/dL (0.4-1.0)
== END 2019-05-25 13:11 | disposition home or self-care (01) ==
LOC: LAB 13:10
PROVIDERS: ATTEND Internal Medicine
DX: G62.9 Polyneuropathy, unspecified (principal); I48.0 Paroxysmal atrial fibrillation
CPT/HCPCS: 36415; 80053; 82607; 84443

== ENCOUNTER 2019-05-31 06:54 | Outpatient (CLI) | payer MEDICARE, BC | END 2019-05-31 06:55 | disposition home or self-care (01) | LOC: LAB 06:54 | PROVIDERS: ATTEND Internal Medicine | DX: I48.0 Paroxysmal atrial fibrillation (principal); Z79.01 Long term (current) use of anticoagulants | CPT/HCPCS: 85610 ==

== ENCOUNTER 2019-06-28 07:04 | Outpatient (CLI) | payer MEDICARE, BC | END 2019-06-28 07:05 | disposition home or self-care (01) | LOC: LAB 07:04 | PROVIDERS: ATTEND Internal Medicine | DX: I48.0 Paroxysmal atrial fibrillation (principal); Z79.01 Long term (current) use of anticoagulants | CPT/HCPCS: 85610 ==

== ENCOUNTER 2019-07-09 10:55 | Emergency (ER) | payer MEDICARE, BC ==
[2019-07-09 11:42] LABS: BASOPHILS # (AUTO) 0.1 10^3/uL (0.0-0.1); BASOPHILS % (AUTO) 1.1 %; EOSINOPHILS # (AUTO) 0.1 10^3/uL (0.0-0.7); EOSINOPHILS % (AUTO) 1.1 %; HGB - HEMOGLOBIN 13.9 g/dL (12.0-16.0); LYMPHOCYTES # (AUTO) 1.3 10^3/uL (1.5-3.5); MEAN CORPUSCULAR HEMOGLOBIN 31.3 pg (27.0-31.0); MEAN CORPUSCULAR HGB CONC 31.2 g/dL (32.0-36.0); MEAN CORPUSCULAR VOLUME 100.5 fL (81.0-99.0); MEAN PLATELET VOLUME 9.1 fL (7.9-10.8); MONOCYTES # (AUTO) 0.6 10^3/uL (0.0-1.0); MONOCYTES % (AUTO) 7.9 %; NEUTROPHILS # (AUTO) 5.3 10^3/uL (1.5-6.6); NEUTROPHILS % (AUTO) 72.5 %; PLT - PLATELET COUNT 232 10^3/uL (130-450); RED BLOOD COUNT 4.44 10^6/uL (4.20-5.40); RED CELL DISTRIBUTION WIDTH 13.3 % (12.0-15.0); WHITE BLOOD COUNT 7.4 x10^3/uL (4.8-10.8)
[2019-07-09 11:56] LABS: ALBUMIN/GLOBULIN RATIO 1.3 (1.0-2.2); BILIRUBIN,TOTAL 1.1 mg/dL (0.2-1.0); CALCIUM 9.1 mg/dL (8.5-10.3); CREATININE 0.8 mg/dL (0.4-1.0); TOTAL PROTEIN 7.2 g/dL (6.7-8.2)
[2019-07-09] MEDS ORDERED: diltiaZEM INJ 5 MG/ML VIAL IVP STA (11:57)
--- NOTE | 2019-07-09 12:00 | ED Physician Documentation ---
History of Present Illness - Stated complaint Stated Complaint: DIZZY/WEAKNESS/GARCIA - Chief complaint Chief Complaint: Neuro - History obtained from History obtained from: Patient - History of Present Illness Timing: How many days ago (3) - Additonal information Additional information: 84-year-old female with a history of atrial fibrillation has a 3-day complaint of dizziness and lightheadedness. She is brought to the hospital by her family for evaluation. dizziness and headache Review of Systems Constitutional: denies: Fever, Chills, Fatigue Eyes: denies: Decreased vision Ears: denies: Ear pain Nose: denies: Rhinorrhea / runny nose, Congestion Throat: denies: Sore throat Cardiac: denies: Chest pain / pressure, Palpitations Respiratory: denies: Dyspnea, Cough GI: denies: Abdominal Pain, Nausea, Vomiting : denies: Dysuria, Frequency Musculoskeletal: denies: Neck pain, Back pain, Extremity pain Neurologic: reports: Other (Lightheaded and dizzy.). 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: Other HEENT: Tonsil/Adenoidectomy - Present Medications Home Medications: Ambulatory Orders Medication Instructions Recorded Confirmed Diltiazem HCl [Cartia Xt] 120 mg PO DAILY 10/30/14 07/09/19 Diltiazem HCl [Cartia Xt] 180 mg PO DAILY 10/30/14 07/09/19 Metoprolol Tartrate 50 mg PO DAILY 10/30/14 07/09/19 Albuterol Sulfate [Albuterol 2 INH DAILY 07/09/19 Sulfate Hfa] Sulfamethox/Trimeth 800/160 1 each PO BID #14 tablet 07/09/19 [Bactrim Ds] - Allergies Allergies/Adverse Reactions: Allergies Allergy/AdvReac Type Severity Reaction Status Date / Time No Known Drug Allergies Allergy Verified 07/09/19 11:08 - Social History Does the pt smoke?: No Smoking Status: Never smoker Does the pt have substance abuse?: No - POLST Patient has POLST: No PD ED PE NORMAL - Vitals Vital signs reviewed: Yes (tachy and hypertensive ) - General General: Alert and oriented X 3, No acute distress, Well developed/nourished - HEENT HEENT: Atraumatic, PERRL, EOMI, Ears normal, Moist mucous membranes - Neck Neck: Supple, no meningeal sign, No bony TTP - Cardiac Cardiac: Other (irregularly irregular rate and rhythm with rapid rate) - Respiratory Respiratory: No respiratory distress, Clear bilaterally - Abdomen Abdomen: Soft, Non tender - Back Back: No CVA TTP, No spinal TTP - Derm Derm: Normal color, No rash - Extremities Extremities: No deformity, No edema - Neuro Neuro: Alert and oriented X 3, engineer rf deployment 2-12 intact, No motor deficit, No sensory deficit, Normal speech Eye Opening: Spontaneous Motor: Obeys Commands Verbal: Oriented GCS Score: 15 - Psych Psych: Normal mood, Normal affect Results - Vitals Vitals: Vital Signs - 24 hr 07/09/19 07/09/19 07/09/19 11:05 11:47 12:26 Temperature 36.5 C Heart Rate 122 H 113 H 68 Respiratory 20 16 16 Rate Blood Pressure 137/96 H 150/100 H 153/98 H O2 Saturation 94 97 98 07/09/19 07/09/19 12:53 13:23 Temperature Heart Rate 68 81 Respiratory 16 18 Rate Blood Pressure 115/74 119/82 H O2 Saturation 96 94 Oxygen O2 Source Room air - EKG (time done) 1128 Rate: Rate (enter#) (120) Rhythm: Atrial fibrillation Ackley: RAD QRS: Low voltage Ischemia: Non specific changes Compare to prior EKG: Old EKG unavailable Computer interpretation: Agree with computer - Labs Labs: Laboratory Tests 07/09/19 07/09/19 07/09/19 11:26 11:26 13:21 WBC 7.4 RBC 4.44 Hgb 13.9 Hct 44.6 MCV 100.5 H MCH 31.3 H MCHC 31.2 L RDW 13.3 Plt Count 232 MPV 9.1 Neut # (Auto) 5.3 Lymph # (Auto) 1.3 L Bledsoe # (Auto) 0.6 Eos # (Auto) 0.1 Baso # (Auto) 0.1 Absolute Nucleated RBC 0.00 Nucleated RBC % 0.0 Sodium 134 L Potassium 4.3 Chloride 95 L Carbon Dioxide 30 Anion Gap 9.0 BUN 12 Creatinine 0.8 Estimated GFR (MDRD) 68 L Glucose 104 H Calcium 9.1 Total Bilirubin 1.1 H AST 23 ALT 15 Alkaline Phosphatase 27 L Total Protein 7.2 Albumin 4.0 Globulin 3.2 Albumin/Globulin Ratio 1.3 Lipase 32 Urine Color YELLOW Urine Clarity CLOUDY Urine pH 6.5 Ur Specific [place] 1.015 Urine Protein TRACE Urine Glucose (UA) NEGATIVE Urine Ketones TRACE Urine Occult Blood TRACE-INTA Urine Nitrite POSITIVE H Urine Bilirubin NEGATIVE Urine Urobilinogen 0.2 (NORMAL) Ur Leukocyte Esterase LARGE H Urine RBC 6-10 H Urine WBC 11-25 H Ur Squamous Epith Cells MANY Squamous H Urine Bacteria Moderate H Ur Microscopic Review INDICATED Urine Culture Comments NOT INDICATED Procedures - IVC sono (time) 1150 Bedside IVC sono: IVC measures (cm) (1.56), IVC collapsed c insp (cm) (0.56), Euvolemia PD MEDICAL DECISION MAKING - ED course Complexity details: reviewed old records, reviewed results, re-evaluated patient, considered differential, d/w patient ED course: 84-year-old female with a history of atrial fibrillation off of anticoagulants has developed weakness and she found to be in atrial fibrillation with a rapid ventricular response and interrogation the inferior vena cava reveals euvolemia indicating that she is tolerating the rhythm. There must be another cause for the rapid rate other than volume depletion or failure and indeed she has urinary tract infection. She is administered diltiazem 20 mg intravenously which redu christiano her heart rate into the 70s and she feels improved. She subsequently administered Rocephin 1 g intravenously for urinary tract infection. Departure - Departure Disposition: 01 Home, Self Care Clinical Impression: Atrial fibrillation with RVR UTI (urinary tract infection) Qualifiers: Urinary tract infection type: acute cystitis Hematuria presence: with hematuria Qualified Code(s): N30.01 - Acute cystitis with hematuria Condition: Stable Instructions: ED Afib, ED UTI Cystitis Female Follow-Up: Tia Arboleda PA [Provider Admit Priv/Credential] - Prescriptions: Sulfamethox/Trimeth 800/160 [Bactrim Ds] 1 each PO BID #14 tablet
[2019-07-09 13:28] LABS: BILIRUBIN,URINE NEGATIVE (NEGATIVE); GLUCOSE, URINE (UA) NEGATIVE (NEGATIVE); KETONES,URINE (UA) TRACE mg/dL (NEGATIVE); LEUKOCYTE ESTERASE, URINE LARGE (NEGATIVE); NITRITE,URINE POSITIVE (NEGATIVE); OCCULT BLOOD,URINE TRACE-INTA (NEGATIVE); PH,URINE 6.5 PH (5.0-7.5); PROTEIN,URINE TRACE mg/dL (NEGATIVE); UROBILINOGEN,URINE 0.2 (NORMAL) E.U./dL (NORMAL)
[2019-07-09 13:35] LABS: CLARITY,URINE CLOUDY (CLEAR)
[2019-07-09 13:36] LABS: BACTERIA,URINE Moderate /HPF (None Seen); SQUAMOUS EPITHELIAL CELL,UR MANY Squamous (<= Few)
[2019-07-09] MEDS ORDERED: cefTRIAXone 1 GM in SODIUM CHLORIDE 0.9% MINIBAG 100 ML IV STA (13:49)
[2019-07-09 14:47] VITALS: BP 137/66
== END 2019-07-09 14:47 | disposition home or self-care (01) ==
LOC: ED 10:55
DX: I48.91 Unspecified atrial fibrillation (principal); N30.01 Acute cystitis with hematuria
CPT/HCPCS: 36415; 80053; 81001; 81003; 83690; 84484; 85025; 87086; 93005; 96365; 96375; 99283

== ENCOUNTER 2019-07-12 08:00 | Outpatient (CLI) | payer MEDICARE, BC | END 2019-07-12 08:01 | disposition home or self-care (01) | LOC: LAB 08:00 | PROVIDERS: ATTEND Internal Medicine | DX: I48.0 Paroxysmal atrial fibrillation (principal); Z79.01 Long term (current) use of anticoagulants | CPT/HCPCS: 85610 ==

== ENCOUNTER 2019-07-18 06:54 | Outpatient (CLI) | payer MEDICARE, BC | END 2019-07-18 06:55 | disposition home or self-care (01) | LOC: LAB 06:54 | PROVIDERS: ATTEND Internal Medicine | DX: I48.0 Paroxysmal atrial fibrillation (principal); Z79.01 Long term (current) use of anticoagulants | CPT/HCPCS: 85610 ==

== ENCOUNTER 2019-07-25 07:07 | Outpatient (CLI) | payer MEDICARE, BC | END 2019-07-25 07:08 | disposition home or self-care (01) | LOC: LAB 07:07 | PROVIDERS: ATTEND Internal Medicine | DX: I48.0 Paroxysmal atrial fibrillation (principal); Z79.01 Long term (current) use of anticoagulants | CPT/HCPCS: 85610 ==

== ENCOUNTER 2019-08-08 07:28 | Outpatient (CLI) | payer MEDICARE, BC | END 2019-08-08 07:29 | disposition home or self-care (01) | LOC: LAB 07:28 | PROVIDERS: ATTEND Internal Medicine | DX: I48.0 Paroxysmal atrial fibrillation (principal); Z79.01 Long term (current) use of anticoagulants | CPT/HCPCS: 85610 ==

== ENCOUNTER 2019-08-13 07:24 | Outpatient (CLI) | payer MEDICARE, BC | END 2019-08-13 07:25 | disposition home or self-care (01) | LOC: LAB 07:24 | PROVIDERS: ATTEND Internal Medicine | DX: I48.0 Paroxysmal atrial fibrillation (principal); Z79.01 Long term (current) use of anticoagulants | CPT/HCPCS: 85610 ==

== ENCOUNTER 2019-08-20 07:24 | Outpatient (CLI) | payer MEDICARE, BC | END 2019-08-20 07:25 | disposition home or self-care (01) | LOC: LAB 07:24 | PROVIDERS: ATTEND Internal Medicine | DX: I48.0 Paroxysmal atrial fibrillation (principal); Z79.01 Long term (current) use of anticoagulants | CPT/HCPCS: 85610 ==

== ENCOUNTER 2019-08-27 07:35 | Outpatient (CLI) | payer MEDICARE, BC | END 2019-08-27 07:36 | disposition home or self-care (01) | LOC: LAB 07:35 | PROVIDERS: ATTEND Internal Medicine | DX: I48.0 Paroxysmal atrial fibrillation (principal); Z79.01 Long term (current) use of anticoagulants | CPT/HCPCS: 85610 ==

== ENCOUNTER 2019-09-03 07:35 | Outpatient (CLI) | payer MEDICARE, BC | END 2019-09-03 07:36 | disposition home or self-care (01) | LOC: LAB 07:35 | PROVIDERS: ATTEND Internal Medicine | DX: I48.0 Paroxysmal atrial fibrillation (principal); Z79.01 Long term (current) use of anticoagulants | CPT/HCPCS: 85610 ==

== ENCOUNTER 2019-09-17 07:26 | Outpatient (CLI) | payer MEDICARE, BC | END 2019-09-17 07:27 | disposition home or self-care (01) | LOC: LAB 07:26 | PROVIDERS: ATTEND Internal Medicine | DX: Z79.01 Long term (current) use of anticoagulants (principal); I48.0 Paroxysmal atrial fibrillation | CPT/HCPCS: 85610 ==

== ENCOUNTER 2019-09-24 08:32 | Outpatient (CLI) | payer MEDICARE, BC | END 2019-09-24 08:33 | disposition home or self-care (01) | LOC: LAB 08:32 | PROVIDERS: ATTEND Internal Medicine | DX: Z79.01 Long term (current) use of anticoagulants (principal); I48.0 Paroxysmal atrial fibrillation | CPT/HCPCS: 85610 ==

== ENCOUNTER 2019-10-01 07:26 | Outpatient (CLI) | payer MEDICARE, BC | END 2019-10-01 07:27 | disposition home or self-care (01) | LOC: LAB 07:26 | PROVIDERS: ATTEND Internal Medicine | DX: I48.0 Paroxysmal atrial fibrillation (principal); Z79.01 Long term (current) use of anticoagulants | CPT/HCPCS: 85610 ==

== ENCOUNTER 2019-10-01 11:56 | Outpatient (CLI) | payer MEDICARE, BC ==
--- NOTE | 2019-10-01 13:50 | Mammography Report ---
Reason: LT BREAST CA Procedure Date: 10/01/2019 Accession Number: [id number] / [id number] Procedure: ALYSSA - Diagnostic Dig LT CPT Code: Final Report FULL RESULT: EXAM: Diagnostic Dig LT DATE: 10/01/2019 1:02 PM CLINICAL HISTORY: Left breast cancer for follow-up TECHNIQUE: (L) - Left CC and MLO views were obtained. COMPARISON: 01/15/2019, 08/09/2018, 12/15/2017, 09/06/2017, 731 and 17, 03/27/2017, 06/04/2011 and 02/26/2010 PARENCHYMAL PATTERN: (D) - The breast demonstrates heterogeneously dense fibroglandular parenchyma . FINDINGS: No significant interval change. Post radiation skin thickening and vascular calcification with a focus of postsurgical architectural distortion left upper outer quadrant posterior third as before. There are no new suspicious masses, calcifications, or areas of distortion. IMPRESSION: Benign findings. BI-RADS category 2. RECOMMENDATION: (ANNUAL) - Recommend routine annual screening mammography. Beginning in February 2020. BI-RADS CATEGORY: (2) - Benign Findings. STANDARD QUALIFYING STATEMENTS: 1. This examination was not reviewed with the aid of Computer-Aided Detection (CAD). 2. A negative or benign imaging report should not preclude biopsy if clinically suspicious findings are present. 3. Dense breasts may obscure an underlying neoplasm. 4. This examination was reviewed with the aid of 3D breast imaging (tomosynthesis).
== END 2019-10-01 11:57 | disposition home or self-care (01) ==
LOC: DI 11:56
PROVIDERS: ATTEND Internal Medicine
DX: C50.412 Malignant neoplasm of upper-outer quadrant of left female breast (principal); I48.0 Paroxysmal atrial fibrillation; Z79.01 Long term (current) use of anticoagulants
CPT/HCPCS: 85610

== ENCOUNTER 2019-10-08 07:28 | Outpatient (CLI) | payer MEDICARE, BC | END 2019-10-08 07:29 | disposition home or self-care (01) | LOC: LAB 07:28 | PROVIDERS: ATTEND Internal Medicine | DX: Z79.01 Long term (current) use of anticoagulants (principal); I48.0 Paroxysmal atrial fibrillation | CPT/HCPCS: 85610 ==

== ENCOUNTER 2019-10-22 07:19 | Outpatient (CLI) | payer MEDICARE, BC | END 2019-10-22 07:20 | disposition home or self-care (01) | LOC: LAB 07:19 | PROVIDERS: ATTEND Internal Medicine | DX: Z79.01 Long term (current) use of anticoagulants (principal); I48.0 Paroxysmal atrial fibrillation | CPT/HCPCS: 85610 ==

== ENCOUNTER 2019-10-29 07:18 | Outpatient (CLI) | payer MEDICARE, BC | END 2019-10-29 07:19 | disposition home or self-care (01) | LOC: LAB 07:18 | PROVIDERS: ATTEND Internal Medicine | DX: I48.0 Paroxysmal atrial fibrillation (principal); Z79.01 Long term (current) use of anticoagulants | CPT/HCPCS: 85610 ==

== ENCOUNTER 2019-11-05 07:09 | Outpatient (CLI) | payer MEDICARE, BC | END 2019-11-05 07:10 | disposition home or self-care (01) | LOC: LAB 07:09 | PROVIDERS: ATTEND Internal Medicine | DX: I48.0 Paroxysmal atrial fibrillation (principal); Z79.01 Long term (current) use of anticoagulants | CPT/HCPCS: 85610 ==

== ENCOUNTER 2019-11-12 07:11 | Outpatient (CLI) | payer MEDICARE, BC | END 2019-11-12 07:12 | disposition home or self-care (01) | LOC: LAB 07:11 | PROVIDERS: ATTEND Internal Medicine | DX: I48.0 Paroxysmal atrial fibrillation (principal); Z79.01 Long term (current) use of anticoagulants | CPT/HCPCS: 85610 ==

== ENCOUNTER 2019-11-19 07:37 | Outpatient (CLI) | payer MEDICARE, BC | END 2019-11-19 07:38 | disposition home or self-care (01) | LOC: LAB 07:37 | PROVIDERS: ATTEND Physician Assistant | DX: I48.21 Permanent atrial fibrillation (principal) | CPT/HCPCS: 85610 ==

== ENCOUNTER 2019-12-03 07:21 | Outpatient (CLI) | payer MEDICARE, BC | END 2019-12-03 07:22 | disposition home or self-care (01) | LOC: LAB 07:21 | PROVIDERS: ATTEND Physician Assistant | DX: I48.21 Permanent atrial fibrillation (principal) | CPT/HCPCS: 85610 ==

== ENCOUNTER 2020-01-03 07:18 | Outpatient (CLI) | payer MEDICARE, BC | END 2020-01-03 07:19 | disposition home or self-care (01) | LOC: LAB 07:18 | PROVIDERS: ATTEND Physician Assistant | DX: I48.21 Permanent atrial fibrillation (principal) | CPT/HCPCS: 85610 ==

== ENCOUNTER 2020-01-21 07:00 | Outpatient (CLI) | payer MEDICARE, BC ==
[2020-01-21 21:07] LABS: CANDIDA GROUP DNA POSITIVE (NEGATIVE); CANDIDA KRUSEI DNA NEGATIVE (NEGATIVE); TRICHOMONAS VAGINALIS DNA NEGATIVE (NEGATIVE)
== END 2020-01-21 23:59 | disposition home or self-care (01) ==
LOC: LAB.R 07:00
PROVIDERS: ATTEND Obstetrics & Gynecology
DX: N89.8 Other specified noninflammatory disorders of vagina (principal)
CPT/HCPCS: 87661; 87801

== ENCOUNTER 2020-01-31 07:15 | Outpatient (CLI) | payer MEDICARE, BC | END 2020-01-31 07:16 | disposition home or self-care (01) | LOC: LAB 07:15 | PROVIDERS: ATTEND Physician Assistant | DX: I48.21 Permanent atrial fibrillation (principal) | CPT/HCPCS: 85610 ==

== ENCOUNTER 2020-02-14 07:08 | Outpatient (CLI) | payer MEDICARE, BC ==
[2020-02-14 08:00] LABS: PT - PROTHROMBIN TIME 112.3 secs (9.9-12.6)
[2020-02-14 08:31] LABS: INR > 10.0 (0.8-1.2)
== END 2020-02-14 07:09 | disposition home or self-care (01) ==
LOC: LAB 07:08
PROVIDERS: ATTEND Physician Assistant
DX: I48.21 Permanent atrial fibrillation (principal)
CPT/HCPCS: 36415; 85610

== ENCOUNTER 2020-03-01 12:29 | Outpatient (CLI) | payer MEDICARE, BC ==
--- NOTE | 2020-03-01 13:09 | XRAY Report ---
PROCEDURE: Chest 2 View X-Ray INDICATIONS: ASTHMA TECHNIQUE: 2 view(s) of the chest. COMPARISON: None. FINDINGS: Surgical changes and devices: Surgical clips are seen in the region of left axilla.. Lungs and pleura: No pleural effusions or pneumothorax. There is hyperinflation. No focal infiltrate . Mediastinum: Mediastinal contours are normal. Heart size is normal. Bones and chest wall: No suspicious bony abnormalities. Soft tissues appear unremarkable. IMPRESSION: Hyperinflation. No focal infiltrate, pleural effusion or pneumothorax. Reviewed by: Rico Carey MD on 03/01/2020 1:08 PM PDT Approved by: Rico Carey MD on 03/01/2020 1:08 PM PDT Station ID: [id number]
== END 2020-03-01 12:30 | disposition home or self-care (01) ==
LOC: DI 12:29
PROVIDERS: ATTEND Nurse Practitioner Family
DX: J45.909 Unspecified asthma, uncomplicated (principal)
CPT/HCPCS: 71046

== ENCOUNTER 2020-03-03 07:09 | Outpatient (CLI) | payer MEDICARE, BC | END 2020-03-03 07:10 | disposition home or self-care (01) | LOC: LAB 07:09 | PROVIDERS: ATTEND Physician Assistant | DX: I48.21 Permanent atrial fibrillation (principal) | CPT/HCPCS: 85610 ==

== ENCOUNTER 2020-03-04 13:07 | Outpatient (CLI) | payer MEDICARE, BC ==
[2020-03-04] MEDS ORDERED: ALBUTEROL 1 PUFF INH SCH (16:00)
== END 2020-03-04 13:08 | disposition home or self-care (01) ==
LOC: RT 13:07
PROVIDERS: ATTEND Nurse Practitioner Family
DX: J45.909 Unspecified asthma, uncomplicated (principal)
CPT/HCPCS: 94060

== ENCOUNTER 2020-03-17 06:53 | Outpatient (CLI) | payer MEDICARE, BC | END 2020-03-17 06:54 | disposition home or self-care (01) | LOC: LAB 06:53 | PROVIDERS: ATTEND Physician Assistant | DX: I48.21 Permanent atrial fibrillation (principal) | CPT/HCPCS: 85610 ==

== ENCOUNTER 2020-03-31 07:01 | Outpatient (CLI) | payer MEDICARE, BC | END 2020-03-31 07:02 | disposition home or self-care (01) | LOC: LAB 07:01 | PROVIDERS: ATTEND Physician Assistant | DX: I48.21 Permanent atrial fibrillation (principal) | CPT/HCPCS: 85610 ==

== ENCOUNTER 2021-01-12 08:00 | Outpatient (CLI) | payer MEDICARE, BC ==
[2021-01-12 08:25] LABS: HCT - HEMATOCRIT 42.5 % (37.0-47.0); HGB - HEMOGLOBIN 13.8 g/dL (12.0-16.0); MEAN CORPUSCULAR HEMOGLOBIN 33.5 pg (27.0-31.0); MEAN CORPUSCULAR HGB CONC 32.5 g/dL (32.0-36.0); MEAN CORPUSCULAR VOLUME 103.2 fL (81.0-99.0); MEAN PLATELET VOLUME 9.4 fL (7.9-10.8); RED BLOOD COUNT 4.12 10^6/uL (4.20-5.40); RED CELL DISTRIBUTION WIDTH 12.8 % (12.0-15.0); WHITE BLOOD COUNT 5.7 x10^3/uL (4.8-10.8)
[2021-01-12 08:34] LABS: INR 1.4 (0.8-1.2); PT - PROTHROMBIN TIME 15.4 secs (9.9-12.6)
[2021-01-12 08:37] LABS: CREATININE 0.9 mg/dL (0.4-1.0)
== END 2021-01-12 23:59 | disposition home or self-care (01) ==
LOC: LAB 08:00
PROVIDERS: ATTEND Internal Medicine Cardiovascular Disease
DX: I48.0 Paroxysmal atrial fibrillation (principal)
CPT/HCPCS: 36415; 82565; 85027; 85610

== ENCOUNTER 2021-03-22 23:56 | Outpatient (CLI) | payer MEDICARE, BC | END 2021-03-22 23:57 | disposition critical access hospital (66) | LOC: EMS 23:56 | DX: Z04.3 Encounter for examination and observation following other accident (principal) | CPT/HCPCS: A0425; A0427 ==

== ENCOUNTER 2021-03-23 00:08 | Inpatient (IN) | payer MEDICARE, BC ==
--- NOTE | 2021-03-23 00:58 | ED Physician Documentation ---
PD HPI LOWER EXT INJURY - Stated complaint Stated Complaint: GLF, LEFT HIP PAIN - Chief complaint Chief Complaint: Trauma Ext - History obtained from History obtained from: Patient, EMS - History of Present Illness PD HPI LOW EXT INJURY LOCATION: Right, Hip Type of injury: Fall Where injury occurred: Home Timing - onset: Today Timing - duration: Hours Timing - details: Abrupt onset, Still present Improved by: Rest, Immobilization Worsened by: Moving, Palpating Associated symptoms: No: Weakness, Numbness, Tingling, Swelling, Discolored Contributing factors: Anticoagulated Similar symptoms before: Has not had sx before Recently seen: Not recently seen - Additional information Additional information: 85-year-old female with a history of atrial fibrillation on Eliquis was in her home today when she stood up to go to bed this evening and she fell onto her right hip. She was unable to get up off the ground she yelled until she was able to get her son to come who is in a back room. She was on the ground for approximately an hour. Patient is attended to by medics bring her in noting she did not have a head injury associated with this. She denies any loss of consciousness with the fall and denies any pain to her head neck chest abdomen back or upper extremities. She is complaining of pain to her hips she has pain to the right hip specifically with any movement. Review of Systems Constitutional: denies: Fever, Chills Eyes: denies: Decreased vision, Photophobia Ears: denies: Ear pain Nose: denies: Rhinorrhea / runny nose, Congestion Throat: denies: Sore throat Cardiac: denies: Chest pain / pressure, Palpitations Respiratory: reports: Dyspnea (similar to always), Cough (similar to always), Wheezing (similar to always) GI: denies: Abdominal Pain, Nausea, Vomiting : denies: Dysuria, Frequency PD PAST MEDICAL HISTORY - Past Medical History Past Medical History: Yes Cardiovascular: Atrial fibrillation Respiratory: Asthma Endocrine/Autoimmune: None GI: Colon polyps : None HEENT: None Psych: None Musculoskeletal: None Derm: None - Past Surgical History Past Surgical History: Yes 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 HEENT: Tonsil/Adenoidectomy - Present Medications Home Medications: Ambulatory Orders Medication Instructions Recorded Confirmed Diltiazem HCl [Cartia Xt] 120 mg PO DAILY 10/30/14 03/23/21 Albuterol Sulfate [Albuterol 2 puffs INH DAILY PRN 07/09/19 03/23/21 Sulfate Hfa] Apixaban [Eliquis] 2.5 mg PO BID 03/23/21 03/23/21 Memantine HCl [Namenda] 10 mg PO BID 03/23/21 03/23/21 Metoprolol Succinate [Toprol Xl] 50 mg PO QPM 03/23/21 03/23/21 Mirtazapine 15 mg PO QPM 03/23/21 03/23/21 clonazePAM [Clonazepam] 0.5 tab PO BID 03/23/21 03/23/21 - Allergies Allergies/Adverse Reactions: Allergies Allergy/AdvReac Type Severity Reaction Status Date / Time No Known Drug Allergies Allergy Verified 03/23/21 00:10 - Social History Does the pt smoke?: No Smoking Status: Never smoker Does the pt drink ETOH?: No Does the pt have substance abuse?: No - Immunizations Immunizations are current?: No Immunizations: TDAP >10years/unknown - POLST Patient has POLST: No PD ED PE NORMAL - Vitals Vital signs reviewed: Yes (Hypertensive and hypoxic) - General General: Alert and oriented X 3, No acute distress, Well developed/nourished - HEENT HEENT: Atraumatic, PERRL, EOMI, Other (no pain to deep palpation of the entire scalp) - Neck Neck: Supple, no meningeal sign, No bony TTP - Cardiac Cardiac: No murmur, Other (irregullarly irregular rate and rhythm) - Respiratory Respiratory: No respiratory distress, Other (diminished breah sounds bilat) - Abdomen Abdomen: Normal bowel sounds, Soft, Non tender, Non distended, No organomegaly - Back Back: No CVA TTP, No spinal TTP - Derm Derm: Normal color, Warm and dry, No rash - Extremities Extremities: Other (There is shortening and external rotation of the right lower extremity there is pain to palpation of the trochanter and pain with movement of the right lower extremity.) - Neuro Neuro: Alert and oriented X 3, customer strategy manager 2-12 intact, No motor deficit, No sensory deficit Eye Opening: Spontaneous Motor: Obeys Commands Verbal: Oriented GCS Score: 15 - Psych Psych: Normal mood, Normal affect Results - Vitals Vitals: Vital Signs - 24 hr 03/23/21 03/23/21 03/23/21 00:16 00:46 01:10 Temperature 36.2 C L Heart Rate 98 94 83 Respiratory 20 21 17 Rate Blood Pressure 161/144 H 163/99 H 161/117 H O2 Saturation 88 L 99 100 03/23/21 01:33 Temperature Heart Rate 98 Respiratory 19 Rate Blood Pressure 146/110 H O2 Saturation 96 Oxygen O2 Source Nasal cannula - EKG (time done) 0037 Rate: Rate (enter#) (85) Rhythm: Atrial fibrillation, Other (PVC) Intervals: Prolonged QT Ischemia: Normal ST segments, Q waves Compare to prior EKG: Changed from prior EKG (SPT 07-09-2019 rate has slowed and the QT interval has prolonged.) Computer interpretation: Disagree with computer (I do not see the ST elevation called laterally) - Labs Labs: Laboratory Tests 03/23/21 01:38 Urine Color YELLOW Urine Clarity SL. CLOUDY Urine pH 5.0 Ur Specific [place] >=1.030 H Urine Protein 30 H Urine Glucose (UA) NEGATIVE Urine Ketones NEGATIVE Urine Occult Blood TRACE-INTA Urine Nitrite POSITIVE H Urine Bilirubin NEGATIVE Urine Urobilinogen 0.2 (NORMAL) Ur Leukocyte Esterase SMALL H Urine RBC 0-5 Urine WBC >25 H Ur Squamous Epith Cells MOD Squamous H Urine Bacteria Many H Ur Microscopic Review INDICATED Urine Culture Comments NOT INDICATED - Rads (name of study) chest Radiology: Prelim report reviewed (Impression: Similar chronic lung disease. No acute process.), EMP read indepedently, See rad report Right hip Radiology: Prelim report reviewed (Impression: Right proximal femoral fracture.), Final report received, EMP read indepedently (Right intertrochanteric fracture), See rad report PD MEDICAL DECISION MAKING - ED course Complexity details: reviewed old records, reviewed results, re-evaluated patient, considered differential, d/w patient, d/w family ED course: 85-year-old female on Eliquis for atrial fibrillation has fallen and broken her right hip. She has an intertrochanteric hip fracture. She has a history of prior CVA and emphysema as well. Our orthopedic surgeon Dr. Tabor was kind enough to answer the phone at 2:00 in the morning when he was not on-call and he has indicated that he will be able to operate on this patient with the support of the medical team. Dr. Mariama Wallis is consulted in the case and has agreed to admit the patient to the hospital to support Dr. Tabor. The patient is on Eliquis and will need to hold 4 doses. Departure - Departure Disposition: 66 [facility] DC/Xfer Clinical Impression: Intertrochanteric fracture of right hip Qualifiers: Encounter type: initial encounter Fracture type: closed Fracture alignment: displaced Qualified Code(s): S72.141A - Displaced intertrochanteric fracture of right femur, initial encounter for closed fracture Condition: Stable Discharge Date/Time: 03/23/21 02:30
[2021-03-23 01:47] LABS: GLUCOSE, URINE (UA) NEGATIVE (NEGATIVE); KETONES,URINE (UA) NEGATIVE (NEGATIVE); LEUKOCYTE ESTERASE, URINE SMALL (NEGATIVE); NITRITE,URINE POSITIVE (NEGATIVE); OCCULT BLOOD,URINE TRACE-INTA (NEGATIVE); PROTEIN,URINE 30 mg/dL (NEGATIVE); UROBILINOGEN,URINE 0.2 (NORMAL) E.U./dL (NORMAL)
[2021-03-23 01:55] LABS: CLARITY,URINE SL. CLOUDY (CLEAR)
[2021-03-23 01:56] LABS: BACTERIA,URINE Many /HPF (None Seen); BILIRUBIN,URINE NEGATIVE (NEGATIVE); ICTOTEST,URINE NEGATIVE; RBC,URINE 0-5 /HPF (0-5); SQUAMOUS EPITHELIAL CELL,UR MOD Squamous (<= Few); WBC,URINE >25 /HPF (0-5)
[2021-03-23] MEDS ORDERED: ONDANSETRON ODT 4 MG TABLET TL PRN (02:00)
[2021-03-23] MEDS ORDERED: ONDANSETRON 4 MG/2 ML VIAL IVP PRN (02:00)
[2021-03-23 02:29] LABS: BASOPHILS # (AUTO) 0.1 10^3/uL (0.0-0.1); BASOPHILS % (AUTO) 0.7 %; EOSINOPHILS # (AUTO) 0.1 10^3/uL (0.0-0.7); EOSINOPHILS % (AUTO) 1.1 %; HCT - HEMATOCRIT 39.3 % (37.0-47.0); HGB - HEMOGLOBIN 12.7 g/dL (12.0-16.0); LYMPHOCYTES # (AUTO) 0.7 10^3/uL (1.5-3.5); LYMPHOCYTES % (AUTO) 7.8 %; MEAN CORPUSCULAR HEMOGLOBIN 33.8 pg (27.0-31.0); MEAN CORPUSCULAR HGB CONC 32.3 g/dL (32.0-36.0); MEAN CORPUSCULAR VOLUME 104.5 fL (81.0-99.0); MEAN PLATELET VOLUME 9.5 fL (7.9-10.8); MONOCYTES # (AUTO) 0.6 10^3/uL (0.0-1.0); MONOCYTES % (AUTO) 6.2 %; NEUTROPHILS # (AUTO) 7.6 10^3/uL (1.5-6.6); NEUTROPHILS % (AUTO) 83.8 %; PLT - PLATELET COUNT 159 10^3/uL (130-450); RED BLOOD COUNT 3.76 10^6/uL (4.20-5.40); RED CELL DISTRIBUTION WIDTH 12.7 % (12.0-15.0); WHITE BLOOD COUNT 9.1 x10^3/uL (4.8-10.8)
[2021-03-23 02:40] LABS: ALBUMIN 3.7 g/dL (3.2-5.5); ALBUMIN/GLOBULIN RATIO 1.2 (1.0-2.2); BILIRUBIN,TOTAL 0.9 mg/dL (0.2-1.0); CALCIUM 8.9 mg/dL (8.5-10.3); CREATININE 0.8 mg/dL (0.4-1.0); MAGNESIUM 1.9 mg/dL (1.7-2.8); POTASSIUM 3.9 mmol/L (3.5-5.0); TOTAL PROTEIN 6.7 g/dL (6.7-8.2)
[2021-03-23] MEDS: ACETAMINOPHEN 325 MG TABLET PO PRN (02:50)
[2021-03-23] MEDS: SODIUM CHLORIDE FLUSH 0.9% 10 ML SYRINGE IVP SCH ×2 (02:51→17:07)
[2021-03-23] MEDS: MORPHINE 2 MG/ML CARPUJECT IVP PRN ×4 (02:51→20:39)
--- NOTE | 2021-03-23 03:06 | HISTORY & PHYSICAL EXAMINATION ---
Chief Complaint - Chief Complaint Chief Complaint: fall w hip pain History of Present Illness - Admitted From Admitted From:: home via EMS - History Obtained From Records Reviewed: [facility] History obtained from: patient and Dr Rizvi Exam Limitations: none - History of Present Illness HPI Comment/Other: This is an elderly lady who has atrial fibrillation and a history of left breast infiltrating ductal carcinoma that is followed by [facility] cardiology and is on Eliquis. She has no history of congestive heart failure, heart attack, stroke. However she did have a TIA and an MRI done April 2020 has no acute or subacute infarction. Age-appropriate brain parenchymal volume loss is present. She has focal volume loss and encephalomalacia involving the posterior aspect of the right frontal lobe. 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 She lives in her own home. Stood up to go to bed this evening when she tripped and fell. She lay on the ground until she was able to call family. EMS was called and they brought her to the emergency room where she was evaluated by Dr. Rizvi. There is no loss of consciousness, it was a mechanical fall, and she did not hit her head. Pain was specifically to the hip. Temperature is 36.2. Heart rate 98. Blood pressure 161/144. Respirations 20. 88% on room air. She requires 2 L to bring her up to 99% O2 sat. She was a well-developed well-nourished elderly female to him. She had an irregularly irregular heart rate. No respiratory distress and negative lung findings. A benign abdomen. Shortening and external rotation of the right lower extremity with pain to palpation of the trochanter and pain with movement of the right hip. She was alert, oriented, able to follow commands and elusive historian. Urinalysis is contaminated with squamous epithelial cells. CMP is normal. CBC is normal. Plain film report is not present in the EMR but Dr. Rizvi interpreted as an intertrochanteric hip fracture. He has spoken to Dr. Montesinos who is not on- call. However Dr. Montesinos is willing to see the patient tomorrow and operate at the appropriate time. The patient denies chest pain, shortness of breath, edema, cough, no history of heart attack, no history of valvular heart disease. . 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 of old age. Dad approximately age 57 or 59 of complications of alcoholic liver disease. 1 brother alive and well, 1 sister of possible stroke,She was always very nervous and had "lots of little things wrong". 4 children. Thyroid disease is present. Diabetes, hypertension, and alcoholism are also present. 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 She never smoked. Rarely drank. Has been is been for close to a decade now. She still lives in her own home, and 1 son or 1 daughter takes turns living at the house with her. She is very frail, and is still able to dress herself and feed herself but needs a lot of help with everything else. They maintain the home, pay bills, cook, grocery shop, etc. - Substance History Use: Uses substance without health or social issues: NONE Abuse: Recurrent use of substance despite neg consequences: NONE Dependence: Experiences withdrawal or developed tolerances: NONE - POLST Patient has POLST: No POLST Status: DNR (Patient states she is DNR. Daughter at the bedside endorses that mom is lucid, competent enough to make that decision and that will be written in the chart.) Meds/Allgy - Home Medications Home Medications: Ambulatory Orders Medication Instructions Recorded Confirmed Diltiazem HCl [Cartia Xt] 120 mg PO DAILY 10/30/14 03/23/21 Albuterol Sulfate [Albuterol 2 puffs INH DAILY PRN 07/09/19 03/23/21 Sulfate Hfa] Apixaban [Eliquis] 2.5 mg PO BID 03/23/21 03/23/21 Memantine HCl [Namenda] 10 mg PO BID 03/23/21 03/23/21 Metoprolol Succinate [Toprol Xl] 50 mg PO QPM 03/23/21 03/23/21 Mirtazapine 15 mg PO QPM 03/23/21 03/23/21 clonazePAM [Clonazepam] 0.5 tab PO BID 03/23/21 03/23/21 - Allergies Allergies/Adverse Reactions: Allergies Allergy/AdvReac Type Severity Reaction Status Date / Time No Known Drug Allergies Allergy Verified 03/23/21 00:10 Review of Systems - Constitutional Constitutional: reports: Fatigue, Weakness, Poor appetite, Weight loss (She lost a lot of weight. Mainly over the last 2 years. Lost her taste of smell, food did not taste good. She has been trying to eat extra to gain it back.). denies: Fever, Chills, Malaise - Eyes Eyes: denies: Pain, Irritation, Amaurosis, Blurred vision - Ears, Nose & Throat Ears, Nose & Throat: reports: Hearing loss. denies: Hearing aids, Tinnitus, Vertigo - Cardiovascular Cariovascular: reports: Irregular heart rate. denies: Palpitations, Chest pain, Edema, Lightheadedness, Syncope, Exertional dyspnea - Respiratory Respiratory: denies: Cough, Sputum production, Wheezing, Snoring - Gastrointestinal Gastrointestinal: denies: Abdominal pain, Black stools, Bloody stools, Nausea, Vomiting - Genitourinary Genitourinary: denies: Dysuria, Frequency, Urgency, Incontinence - Musculoskeletal Musculoskeletal: reports: Muscle pain, Back pain, Joint pain - Integumentary Integumentary: denies: Rash, Pruritis, Lesions - Neurological Neurological: reports: Memory problems. denies: General weakness, Focal weakness, Headache - Psychiatric Psychiatric: denies: Depression, Anxiety, Suicidal - Endocrine Endocrine: reports: Intolerance to cold. denies: Polyuria, Polydypsia, Polyphagia - Hematologic/Lymphatic Hematologic/Lymphatic: denies: Anemia, Bruising, Blood clots Prior Level of Functionality: Independent with activities of daily living. 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 Exam - Vital Signs Reviewed Vital Signs: Yes Vital Signs: Vital Signs x48h Temp Pulse Resp BP Pulse Ox 03/23/21 02:13 36.9 C 82 16 150/95 H 99 03/23/21 01:33 98 19 146/110 H 96 03/23/21 01:10 83 17 161/117 H 100 03/23/21 00:46 94 21 163/99 H 99 03/23/21 00:16 36.2 C L 98 20 161/144 H 88 L - Physical Exam General Appearance: positive: No acute distress, Alert, Other (5 foot 5 inch female who weighs 49.89 kg. She appears very, very thin. Wearing glasses. Hard of hearing. Daughter at the bedside.) Eyes Bilateral: positive: PERRL, EOMI ENT: positive: Pharynx nml, No signs of dehydration Neck: positive: No JVD. negative: Lymphadenopathy (R), Lymphadenopathy (L), Stiff neck Respiratory: positive: No respiratory distress, Other (She was wearing an inhaler that was attached to a chain around her neck.). negative: Wheezes, Rales, Rhonchi Cardiovascular: positive: Irregularly irregular, Systolic murmur. negative: Gallop/S4, Friction rub Peripheral Pulses: positive: 1+ Abdomen: positive: Non-tender, No organomegaly, Nml bowel sounds, No distention Skin: positive: Warm, Dry, Pallor Extremities: positive: No pedal edema, Other (Was yelling with pain as she was transferred [facility] the [facility] to the [facility]. After she has been settled in, has received IV opiates, she feels much better and she is apologizing for yelling so much.). negative: Calf tenderness, Joint swelling (Right trochanter painful to touch. That leg is shortened and externally rotated.) Neurologic/Psychiatric: positive: Oriented x3, Motor nml, Sensation nml, Weakness (Generalized). negative: CN's nml (2-12) (Deaf, wearing glasses) Conclusion/Plan - Problem List (1) Intertrochanteric fracture of right hip Conclusion/Plan: Patient had a mechanical fall at home. Osteoporosis on past medical history. Plan: Inpatient status Orthopedic consult tomorrow She is on Eliquis the surgery may not happen tomorrow and I have warned the family that.I will anticipate probably a greater blood loss with surgery than usual. We will monitor for acute blood loss anemia in the postoperative setting. Qualifiers: Encounter type: initial encounter Fracture type: closed Fracture alignment: displaced Qualified Code(s): S72.141A - Displaced intertrochanteric fracture of right femur, initial encounter for closed fracture (2) Atrial fibrillation with RVR Conclusion/Plan: Rate is controlled. She is on anticoagulation. Plan: Hold Eliquis. Surgery will determine when they feel she is safe to go to the operating room. Start Lovenox tomorrow if she does not go to the OR tomorrow. She is seen by Dr. Dawn from [facility]. Will get ECHO (3) Osteoporosis Conclusion/Plan: Start calcium, vitamin D. After surgery Reclast injection for the year. Qualifiers: Osteoporosis type: age-related (4) Unintentional weight loss Conclusion/Plan: She has no B symptoms. She is not depressed. She states that she is not a failure to thrive. She does not know why she lost her appetite. But it slowly starting to come back and she hopes to regain her weight. (5) Abnormal urinalysis Conclusion/Plan: She does not have urgency, frequency, dysuria. Many squamous cells in the specimen. I suspect contamination. She does not have a fever or an elevated white cell count. As such I will not treat this with antibiotics at this time. - Lab Results Lab results reviewed: Yes Fish Bones: 03/23/21 02:17 03/23/21 02:17 - Diagnostic Imaging Results Diagnostic Imaging Results: positive: Final report reviewed Core Measures - Anticipated LOS I expect patient to be DC'd or transferred within 96 hours.: Yes - DVT/VTE - Prophylaxis VTE/DVT Device ordered at admit?: Yes
[2021-03-23] MEDS: LACTATED RINGERS 1,000 ML IV SCH ×3 (03:12→22:09)
[2021-03-23 03:20] LABS: B. PARAPERTUSSIS- RESP PCR PAN NOT DETECTED; B. PERTUSSIS- RESP PCR PANEL NOT DETECTED; C. PNEUMONIAE- RESP PCR PANEL NOT DETECTED; CORONAVIRUS 229E-RESP PCR NOT DETECTED; CORONAVIRUS HKU1-RESP PCR NOT DETECTED; CORONAVIRUS NL63-RESP PCR NOT DETECTED; CORONAVIRUS OC43-RESP PCR NOT DETECTED; HUMAN METAPNEUMOVIRUS NOT DETECTED; INFLUENZA A- RESP PCR PANEL NOT DETECTED; INFLUENZA B - RESP PCR PANEL NOT DETECTED; M. PNEUMONIAE- RESP PCR PANEL NOT DETECTED; PARAINFLUENZA VIRUS 1 NOT DETECTED; PARAINFLUENZA VIRUS 2 NOT DETECTED; PARAINFLUENZA VIRUS 3 NOT DETECTED; PARAINFLUENZA VIRUS 4 NOT DETECTED; RHINOVIRUS/ENTEROVIRUS NOT DETECTED; RSV- RESP PCR PANEL NOT DETECTED; SARS-CoV-2 -RESP PCR PANEL NOT DETECTED
--- NOTE | 2021-03-23 08:14 | XRAY Report ---
PROCEDURE: Hip w/Pelvis 2-3V RT INDICATIONS: GLF hip pain TECHNIQUE: AP view of the pelvis and AP view of the right hip. COMPARISON: None. FINDINGS: Bones: There is an acute fracture of the intertrochanteric region of the right proximal femur with va michi angulation. Pelvic ring appears intact. No suspicious bony lesions. Degenerative changes are se en in the sacroiliac joints and included lower lumbar spine. Soft tissues: The visualized bowel gas pattern is normal. No suspicious soft tissue calcifications. Device projecting over the pelvis may represent a pessary. IMPRESSION: Angulated intertrochanteric fracture of the right proximal femur. There is no significant discrepancy when compared with the overnight teleradiology report. Reviewed by: Christian Lemons MD on 03/23/2021 8:12 AM PDT Approved by: Christian Lemons MD on 03/23/2021 8:12 AM PDT Station ID: [id number]
--- NOTE | 2021-03-23 08:16 | XRAY Report ---
PROCEDURE: Chest 1 View X-Ray INDICATIONS: soa TECHNIQUE: One view of the chest was acquired. COMPARISON: Chest radiographs 03/01/2020 FINDINGS: Surgical changes and devices: Surgical clips are seen projecting over the left axilla. Lungs and pleura: No pleural effusions or pneumothorax. And lungs are hyperexpanded without an acut e airspace opacity. Mediastinum: Mediastinal contours appear normal. Heart size is normal. Moderate aortic atheroscler otic calcifications. Bones and chest wall: No suspicious bony lesions. Overlying soft tissues appear unremarkable. Age- related degenerative changes are seen in the spine. IMPRESSION: No acute cardiopulmonary abnormality. Hyperexpanded lungs can be seen in setting of COPD. There is no significant discrepancy when compared with the overnight teleradiology report. Reviewed by: Christian Lemons MD on 03/23/2021 8:14 AM PDT Approved by: Christian Lemons MD on 03/23/2021 8:14 AM PDT Station ID: [id number]
--- NOTE | 2021-03-23 11:23 | PHARMACY PROGRESS NOTE ---
- Best Possible Medication History Admit Date and Time: 03/23/21 0200 Processed by: Nursing Medication History completed: Yes As the person ultimately responsible for medication therapy, providers are able to order a medication from an existing home medication list in [facility] via the "Reconcile Routine" prior to Confirmation of that medication by senior administrative support. Such practice is discouraged except when the physician, in their clinical judgment, deems that a medical need exists for a medication without regard to previous use.
--- NOTE | 2021-03-23 13:56 | CONSULTATION NOTE ---
Referring Provider Name of Referring Provider:: Dr. Rizvi Consult Date: 03/23/21 Chief Complaint - Chief Complaint Chief Complaint: Pain right hip and upper thigh History of Present Illness - History Obtained From Records Reviewed: Yes History obtained from: Patient and daughter Exam Limitations: None - History of Present Illness HPI Comment/Other: This is an 85-year-old woman who is primarily a indoor ambulator. She has 2 walkers at home. She also has a Lifeline alert. She was not using either of these 2 items when she sustained a fall. She was getting out of a chair, stood, lost her balance and fell before going to bed. The fall was videotaped from a camera. Her son who lives with her called 911 and she was brought to the emergency room because of pain and inability to bear weight on right leg. Her pain is well localized to the right hip and thigh, much better since being ad mitted and not bearing weight on right leg. Any movement to the right leg does cause her pain. She denies previous right hip problems. She does have atrial fibrillation, Eliquis and has previous stroke in the past. She denies chest pain, shortness of breath, syncope or dizziness associated with the fall. Her daughter is at her bedside. History - Past Medical History Cardiovascular: reports: Atrial fibrillation Respiratory: reports: Asthma Neuro: reports: None Endocrine/Autoimmune: reports: None GI: reports: Colon polyps BONE CHAR KILN TENDER: reports: Breast cancer (T2 a N0 M0, triple negative breast cancer diagnosed 2017. Status post lumpectomy, declines chemo.), Other () : reports: None HEENT: reports: None Psych: reports: None Musculoskeletal: reports: None Derm: reports: None MRSA Hx?: No - Past Surgical History General: reports: Colonoscopy /BONE CHAR KILN TENDER: reports: Other HEENT: reports: Tonsil/Adenoidectomy - Family & Social History Family History Comment/Other: Mom in her 80s without any major medical history. of old age. Dad approximately age 57 or 59 of complications of alcoholic liver disease. 1 brother alive and well, 1 sister of possible stroke,She was always very nervous and had "lots of little things wrong". 4 children. Thyroid disease is present. Diabetes, hypertension, and alcoholism are also present. 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 She never smoked. Rarely drank. Has been is been for close to a decade now. She still lives in her own home, and 1 son or 1 daughter takes turns living at the house with her. She is very frail, and is still able to dress herself and feed herself but needs a lot of help with everything else. They maintain the home, pay bills, cook, grocery shop, etc. - Substance History Use: Uses substance without health or social issues: NONE Abuse: Recurrent use of substance despite neg consequences: NONE Dependence: Experiences withdrawal or developed tolerances: NONE - POLST Patient has POLST: No POLST Status: DNR (Patient states she is DNR. Daughter at the bedside endorses that mom is lucid, competent enough to make that decision and that will be written in the chart.) Meds/Allgy - Home Medications Home Medications: Ambulatory Orders Medication Instructions Recorded Confirmed Diltiazem HCl [Cartia Xt] 120 mg PO DAILY 10/30/14 03/23/21 Albuterol Sulfate [Albuterol 2 puffs INH DAILY PRN 07/09/19 03/23/21 Sulfate Hfa] Apixaban [Eliquis] 2.5 mg PO BID 03/23/21 03/23/21 Memantine HCl [Namenda] 10 mg PO BID 03/23/21 03/23/21 Metoprolol Succinate [Toprol Xl] 50 mg PO QPM 03/23/21 03/23/21 Mirtazapine 15 mg PO QPM 03/23/21 03/23/21 clonazePAM [Clonazepam] 0.5 tab PO BID 03/23/21 03/23/21 - Allergies Allergies/Adverse Reactions: Allergies Allergy/AdvReac Type Severity Reaction Status Date / Time No Known Drug Allergies Allergy Verified 03/23/21 00:10 Exam - Vital Signs Vital Signs: Vital Signs x48h Temp Pulse Resp BP Pulse Ox 03/23/21 08:55 112 H 18 97 03/23/21 08:30 36.7 C 61 18 136/84 H 90 L - Physical Exam General Appearance: positive: No acute distress Respiratory: positive: No respiratory distress Peripheral Pulses: positive: 1+ Skin: positive: Warm Extremities: negative: Other (Shortening, external rotation deformity right leg, marked pain with movement of right hip, no hematoma about right hip; right knee nontender) Neurologic/Psychiatric: positive: Oriented x3, Motor nml, Sensation nml Conclusion and Plan - Lab Results Laboratory Results 03/23/21 02:25: Nasal Adenovirus (PCR) NOT DETECTED, Nasal B. parapertussis DNA (PCR) NOT DETECTED, Nasal Coronavir 229E PCR NOT DETECTED, Nasal Coronavir HKU1 PCR NOT DETECTED, Nasal Coronavir NL63 PCR NOT DETECTED, Nasal Coronavir OC43 PCR NOT DETECTED, Nasal Enterovir/Rhinovir PCR NOT DETECTED, Nasal Influenza B PCR NOT DETECTED, Nasal Influenza A PCR NOT DETECTED, Nasal Parainfluen 1 PCR N OT DETECTED, Nasal Parainfluen 2 PCR NOT DETECTED, Nasal Parainfluen 3 PCR NOT DETECTED, Nasal Parainfluen 4 PCR NOT DETECTED, Nasal RSV (PCR) NOT DETECTED, Nasal B.pertussis DNA PCR NOT DETECTED, Nasal C.pneumoniae (PCR) NOT DETECTED, Rhett Human Metapneumo PCR NOT DETECTED, Nasal M.pneumoniae (PCR) NOT DETECTED, Nasal SARS-CoV-2 (PCR) NOT DETECTED 03/23/21 02:17: Sodium 140, Potassium 3.9, Chloride 100 L, Carbon Dioxide 32, Anion Gap 8.0, BUN 22 H, Creatinine 0.8, Estimated GFR (MDRD) 68 L, Glucose 107 H, Calcium 8.9, Magnesium 1.9, Total Bilirubin 0.9, AST 21, ALT 19, Alkaline Phosphatase 26 L, Total Protein 6.7, Albumin 3.7, Globulin 3.0, Albumin/Globulin Ratio 1.2, Lipase 26 03/23/21 02:17: WBC 9.1, RBC 3.76 L, Hgb 12.7, Hct 39.3, MCV 104.5 H, MCH 33.8 H, MCHC 32.3, RDW 12.7, Plt Count 159, MPV 9.5, Neut # (Auto) 7.6 H, Lymph # (Auto) 0.7 L, Angelina # (Auto) 0.6, Eos # (Auto) 0.1, Baso # (Auto) 0.1, Absolute Nucleated RBC 0.00, Nucleated RBC % 0.0 03/23/21 01:38: Urine Color YELLOW, Urine Clarity SL. CLOUDY, Urine pH 5.0, Ur Specific [place] >=1.030 H, Urine Protein 30 H, Urine Glucose (UA) NEGATIVE, Urine Ketones NEGATIVE, Urine Occult Blood TRACE-INTA, Urine Nitrite POSITIVE H, Urine Bilirubin NEGATIVE, Urine Urobilinogen 0.2 (NORMAL), Ur Leukocyte Esterase SMALL H, Urine RBC 0-5, Urine WBC >25 H, Ur Squamous Epith Cells MOD Squamous H, Urine Bacteria Many H, Ur Microscopic Review INDICATED, Urine Culture Comments NOT INDICATED - Diagnostic Imaging Results Diagnostic Imaging Results: negative: Read independently (Displaced, comminuted basilar femoral neck fracture right hip) - Plan Plan: 1. Displaced basilar neck fracture right hip Plan to be open reduction internal fixation right hip 2. Anticoagulation for atrial fibrillation, Eliquis Per hospitalist, need to wait 1 to 2 days for anticoagulation to resolve, tentatively plan surgery Tuesday. I discussed the risks, goals, alternatives with patient and daughter including disability, and . She is at increased risk because of age, decreased body mass including decreased muscle mass and bone mass and previous cerebrovascular disease. They are both in agreement to surgery has signed informed consent. Discussed with her hospitalist Dr. Vargas.
[2021-03-23] MEDS: oxyCODONE 5 MG TABLET PO PRN (15:39)
[2021-03-24] MEDS: SODIUM CHLORIDE FLUSH 0.9% 10 ML SYRINGE IVP SCH ×3 (00:09→16:36)
[2021-03-24] MEDS: MORPHINE 2 MG/ML CARPUJECT IVP PRN ×2 (05:47→19:33)
[2021-03-24] MEDS ORDERED: IPRATROPIUM/ALBUTEROL 3 ML NEB INH PRN (07:54)
[2021-03-24] MEDS ORDERED: CYANOCOBALAMIN 1,000 MCG/ML VIAL IM ONE (07:55)
[2021-03-24] MEDS: LACTATED RINGERS 1,000 ML IV SCH ×3 (09:07→20:53)
[2021-03-24] MEDS: oxyCODONE 5 MG TABLET PO PRN (10:39)
[2021-03-24] MEDS: diltiaZEM CD 120 MG CAPSULE PO SCH (10:40)
[2021-03-24] MEDS: clonazePAM 0.5 MG TABLET PO SCH ×2 (10:40→20:51)
[2021-03-24] MEDS: CHOLECALCIFEROL 25 MCG TABLET PO SCH (10:49)
[2021-03-24] MEDS: CALCIUM CARBONATE CHEW 500 MG TABLET PO SCH ×2 (10:50→20:51)
[2021-03-24] MEDS ORDERED: CYANOCOBALAMIN 500 MCG TABLET PO SCH (11:00)
--- NOTE | 2021-03-24 15:24 | PROVIDER PROGRESS NOTE ---
Assessment/Plan - Problem List (1) Intertrochanteric fracture of right hip Qualifiers: Encounter type: initial encounter Fracture type: closed Fracture alignment: displaced Qualified Code(s): S72.141A - Displaced intertrochanteric fracture of right femur, initial encounter for closed fracture Assessment/Plan: Patient had a mechanical fall at home. Osteoporosis on past medical history. X-ray will reveal right hip fracture, Consult with orthopedic surgeon, plan to have surgery on tomorrow because the patient take Eliquis in the home for his a fibrillation which needed take 1 to 2 days for wane off eliquis effect. Continue pain control, n.p.o. after midnight. DVT prophylaxis per surgeon after surgery, we will hold blood thinner now. (2) Atrial fibrillation with RVR Conclusion/Plan: Rate is controlled After resume patient home Cardizem and metoprolol. She is on anticoagulation. 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 After surgery Reclast injection for the year. (4) Unintentional weight loss Conclusion/Plan: She has no B symptoms. She is not depressed. She states that she is not a failure to thrive. She does not know why she lost her appetite. But it slowly starting to come back and she hopes to regain her weight. (5) Abnormal urinalysis Conclusion/Plan: She does not have urgency, frequency, dysuria. Many squamous cells in the specimen. it is likely contamination. She does not have a fever or an elevated white cell count. no antibiotics at this time. (6)COPD She Patient has a history of COPD, we will add albuterol no DuoNeb as needed, supplemental oxygen as needed (7)pulmonary hypertension her Echo show patient had a 69 mmHG RVSP, Pulmonary hypertension. Patient may follow-up data lead as outpatient (8)atrial septal defect She Echo show for foramen ovale With atrium septal defense. 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: To continue manage (9)pre-operation assessment She had 0.9% Estimated rate of myocardial infarction, pulmonary edema, ventricular fibrillation, cardiac collapse or complete heart block, low risk - Current Meds Current Meds: Current Medications Generic Name Dose Route Start Last Admin Trade Name Freq PRN Reason Stop Dose Admin Acetaminophen 650 mg 03/23/21 02:00 03/23/21 02:50 Acetaminophen 325 Mg Tablet PO 650 mg Q4HR PRN Administration Pain 1 to 4 Calcium Carbonate/Glycine 500 mg 03/24/21 11:00 03/24/21 10:50 Calcium Carbonate Chew 500 Mg Tablet PO 500 mg BID RADHA Administration Cholecalciferol 50 mcg 03/24/21 11:00 03/24/21 10:49 Cholecalciferol 25 Mcg Tablet PO 50 mcg DAILY RADHA Administration Clonazepam 0.25 mg 03/24/21 09:00 03/24/21 10:40 Clonazepam 0.5 Mg Tablet PO 0.25 mg BID RADHA Administration Diltiazem HCl 120 mg 03/24/21 09:00 03/24/21 10:40 Diltiazem Cd 120 Mg Capsule PO 120 mg DAILY RADHA Administration Lactated Ringer's 1,000 mls @ 83.3 mls/hr 03/24/21 09:14 03/24/21 10:41 Lr IV 03/25/21 09:14 83.3 mls/hr .Q12H1M RADHA Administration Morphine Sulfate 2 mg 03/23/21 02:00 03/24/21 05:47 Morphine 2 Mg/Ml Carpuject IVP 2 mg Q2HR PRN Administration Pain 8 to 10 Oxycodone HCl 5 mg 03/23/21 02:00 03/24/21 10:39 Oxycodone 5 Mg Tablet PO 5 mg Q4HR PRN Administration Pain 5 to 7 Sodium Chloride 10 ml 03/23/21 09:00 03/24/21 10:41 Sodium Chloride Flush 0.9% 10 Ml Syringe IVP 10 ml 0100,0900,1700 RADHA Administration - Lab Result Fish Bone Diagrams: 03/23/21 02:17 03/23/21 02:17 - Additional Planning My Orders: My Active Orders 03/24/21 06:56 Nebulizer/MDI Tx. [RC] .qid Albuterol 2.5 mg INH RTQ4H PRN 03/24/21 07:54 Ipratropium/Albuterol [Duoneb] 3 ml INH RTQID PRN 03/24/21 07:59 Metoprolol Inj [Lopressor Inj] 5 mg IVP Q6H PRN 03/24/21 08:02 Echo Transthoracic Complete [ECHO] Stat 03/24/21 09:00 clonazePAM [KlonoPIN] 0.25 mg PO BID diltiaZEM CD [Cardizem Cd] 120 mg PO DAILY 03/24/21 09:14 Lactated Ringers [Lr] 1,000 ml IV 83.3 mls/hr 03/24/21 11:00 Calcium Carbonate [Tums] 500 mg PO BID Cholecalciferol [Vitamin D3] 50 mcg PO DAILY 03/24/21 21:00 Metoprolol Succinate [Toprol Xl] 50 mg PO QPM Mirtazapine [Remeron] 15 mg PO QPM 03/25/21 00:01 NPO except Meds at Midnight [DIET] 03/25/21 05:00 BMP - BASIC METABOLIC PANEL [CHEM] DAILYLAB CBC - COMP BLD CT W/AUTO DIFF [HEME] DAILYLAB 03/26/21 05:00 BMP - BASIC METABOLIC PANEL [CHEM] DAILYLAB CBC - COMP BLD CT W/AUTO DIFF [HEME] DAILYLAB 03/27/21 05:00 BMP - BASIC METABOLIC PANEL [CHEM] DAILYLAB CBC - COMP BLD CT W/AUTO DIFF [HEME] DAILYLAB 03/28/21 05:00 BMP - BASIC METABOLIC PANEL [CHEM] DAILYLAB CBC - COMP BLD CT W/AUTO DIFF [HEME] DAILYLAB 03/29/21 05:00 BMP - BASIC METABOLIC PANEL [CHEM] DAILYLAB CBC - COMP BLD CT W/AUTO DIFF [HEME] DAILYLAB Subjective - Subjective Patient Reports: Feeling Better Objective Vital Signs: Vital Signs - 24 hr 03/23/21 03/23/21 03/24/21 15:37 23:43 06:17 Temperature 37.0 C 37.1 C 37.1 C Heart Rate 114 H Heart Rate [ 88 115 H Radial] Respiratory 16 18 20 Rate Blood Pressure 137/90 H [Left Brachial artery] Blood Pressure 148/88 H [Right Brachial artery] O2 Saturation 97 92 94 03/24/21 08:15 Temperature 37.1 C Heart Rate Heart Rate [ 49 L Radial] Respiratory 18 Rate Blood Pressure 121/76 [Left Brachial artery] Blood Pressure [Right Brachial artery] O2 Saturation 97 Oxygen O2 Source Room air I&O (Last 24 Hrs): Intake and Output Totals x24h 03/22/21 03/23/21 03/24/21 23:59 23:59 23:59 Intake Total 1870 1625 Output Total 340 400 Balance 1530 1225 General: Alert, Oriented x3, No acute distress HEENT: Atraumatic, PERRLA Neck: Supple Lymphatic: no adenopathy Neuro: Alert, Non Focal, Oriented Times 3 Cardiovascular: Regular rate, Normal S1, Normal S2 Respiratory: Chest non-tender, No respiratory distress Abdomen: Normal bowel sounds, Soft, No tenderness Extremities: Normal pulses - Results Results: Laboratory Results WBC 9.1 x10^3/uL (4.8-10.8) 03/23/21 02:17 RBC 3.76 10^6/uL (4.20-5.40) L 03/23/21 02:17 Hgb 12.7 g/dL (12.0-16.0) 03/23/21 02:17 Hct 39.3 % (37.0-47.0) 03/23/21 02:17 MCV 104.5 fL (81.0-99.0) H 03/23/21 02:17 MCH 33.8 pg (27.0-31.0) H 03/23/21 02:17 MCHC 32.3 g/dL (32.0-36.0) 03/23/21 02:17 RDW 12.7 % (12.0-15.0) 03/23/21 02:17 Plt Count 159 10^3/uL (130-450) 03/23/21 02:17 MPV 9.5 fL (7.9-10.8) 03/23/21 02:17 Neut # (Auto) 7.6 10^3/uL (1.5-6.6) H 03/23/21 02:17 Lymph # (Auto) 0.7 10^3/uL (1.5-3.5) L 03/23/21 02:17 [place] # (Auto) 0.6 10^3/uL (0.0-1.0) 03/23/21 02:17 Eos # (Auto) 0.1 10^3/uL (0.0-0.7) 03/23/21 02:17 Baso # (Auto) 0.1 10^3/uL (0.0-0.1) 03/23/21 02:17 Absolute Nucleated RBC 0.00 x10^3/uL 03/23/21 02:17 Nucleated RBC % 0.0 /100WBC 03/23/21 02:17 Sodium 140 mmol/L (135-145) 03/23/21 02:17 Potassium 3.9 mmol/L (3.5-5.0) 03/23/21 02:17 Chloride 100 mmol/L (101-111) L 03/23/21 02:17 Carbon Dioxide 32 mmol/L (21-32) 03/23/21 02:17 Anion Gap 8.0 (6-13) 03/23/21 02:17 BUN 22 mg/dL (6-20) H 03/23/21 02:17 Creatinine 0.8 mg/dL (0.4-1.0) 03/23/21 02:17 Estimated GFR (MDRD) 68 (>89) L 03/23/21 02:17 Glucose 107 mg/dL (70-100) H 03/23/21 02:17 Calcium 8.9 mg/dL (8.5-10.3) 03/23/21 02:17 Magnesium 1.9 mg/dL (1.7-2.8) 03/23/21 02:17 Total Bilirubin 0.9 mg/dL (0.2-1.0) 03/23/21 02:17 AST 21 IU/L (10-42) 03/23/21 02:17 ALT 19 IU/L (10-60) 03/23/21 02:17 Alkaline Phosphatase 26 IU/L (42-121) L 03/23/21 02:17 Total Creatine Kinase 50 IU/L (22-269) 03/24/21 08:07 Total Protein 6.7 g/dL (6.7-8.2) 03/23/21 02:17 Albumin 3.7 g/dL (3.2-5.5) 03/23/21 02:17 Globulin 3.0 g/dL (2.1-4.2) 03/23/21 02:17 Albumin/Globulin Ratio 1.2 (1.0-2.2) 03/23/21 02:17 Lipase 26 U/L (22-51) 03/23/21 02:17 Vitamin B12 106 pg/mL (180-914) L 03/23/21 02:17 Urine Color YELLOW 03/23/21 01:38 Urine Clarity SL. CLOUDY (CLEAR) 03/23/21 01:38 Urine pH 5.0 PH (5.0-7.5) 03/23/21 01:38 Ur Specific [place] >=1.030 (1.002-1.030) H 03/23/21 01:38 Urine Protein 30 mg/dL (NEGATIVE) H 03/23/21 01:38 Urine Glucose (UA) NEGATIVE mg/dL (NEGATIVE) 03/23/21 01:38 Urine Ketones NEGATIVE mg/dL (NEGATIVE) 03/23/21 01:38 Urine Occult Blood TRACE-INTA (NEGATIVE) 03/23/21 01:38 Urine Nitrite POSITIVE (NEGATIVE) H 03/23/21 01:38 Urine Bilirubin NEGATIVE (NEGATIVE) 03/23/21 01:38 Urine Urobilinogen 0.2 (NORMAL) E.U./dL (NORMAL) 03/23/21 01:38 Ur Leukocyte Esterase SMALL (NEGATIVE) H 03/23/21 01:38 Urine RBC 0-5 /HPF (0-5) 03/23/21 01:38 Urine WBC >25 /HPF (0-5) H 03/23/21 01:38 Ur Squamous Epith Cells MOD Squamous (<= Few) H 03/23/21 01:38 Urine Bacteria Many /HPF (None Seen) H 03/23/21 01:38 Ur Microscopic Review INDICATED 03/23/21 01:38 Urine Culture Comments NOT INDICATED 03/23/21 01:38 Nasal Adenovirus (PCR) NOT DETECTED 03/23/21 02:25 Nasal B. parapertussis DNA (PCR) NOT DETECTED 03/23/21 02:25 Nasal Coronavir 229E PCR NOT DETECTED 03/23/21 02:25 Nasal Coronavir HKU1 PCR NOT DETECTED 03/23/21 02:25 Nasal Coronavir NL63 PCR NOT DETECTED 03/23/21 02:25 Nasal Coronavir OC43 PCR NOT DETECTED 03/23/21 02:25 Nasal Enterovir/Rhinovir PCR NOT DETECTED 03/23/21 02:25 Nasal Influenza B PCR NOT DETECTED 03/23/21 02:25 Nasal Influenza A PCR NOT DETECTED 03/23/21 02:25 Nasal Parainfluen 1 PCR NOT DETECTED 03/23/21 02:25 Nasal Parainfluen 2 PCR NOT DETECTED 03/23/21 02:25 Nasal Parainfluen 3 PCR NOT DETECTED 03/23/21 02:25 Nasal Parainfluen 4 PCR NOT DETECTED 03/23/21 02:25 Nasal RSV (PCR) NOT DETECTED 03/23/21 02:25 Nasal B.pertussis DNA PCR NOT DETECTED 03/23/21 02:25 Nasal C.pneumoniae (PCR) NOT DETECTED 03/23/21 02:25 Rhett Human Metapneumo PCR NOT DETECTED 03/23/21 02:25 Nasal M.pneumoniae (PCR) NOT DETECTED 03/23/21 02:25 Nasal SARS-CoV-2 (PCR) NOT DETECTED 03/23/21 02:25 ABX Reporting Has patient been on IV antibiotics over the past 48 hours?: No Current Medications - Current Medications Current Medications: Active Medications Acetaminophen (Acetaminophen 325 Mg Tablet) 650 mg PO Q4HR PRN PRN Reason: Pain 1 to 4 Last Admin: 03/23/21 02:50 Dose: 650 mg Documented by: Albuterol (Albuterol Neb 2.5 Mg/3 Ml) 2.5 mg INH RTQ4H PRN PRN Reason: Wheezing Albuterol/Ipratropium (Ipratropium/Albuterol 3 Ml Neb) 3 ml INH RTQID PRN PRN Reason: Shortness of Air/Wheezing Calcium Carbonate/Glycine (Calcium Carbonate Chew 500 Mg Tablet) 500 mg PO BID [facility] Last Admin: 03/24/21 10:50 Dose: 500 mg Documented by: Cholecalciferol (Cholecalciferol 25 Mcg Tablet) 50 mcg PO DAILY [facility] Last Admin: 03/24/21 10:49 Dose: 50 mcg Documented by: Clonazepam (Clonazepam 0.5 Mg Tablet) 0.25 mg PO BID [facility] Last Admin: 03/24/21 10:40 Dose: 0.25 mg Documented by: Diltiazem HCl (Diltiazem Cd 120 Mg Capsule) 120 mg PO DAILY [facility] Last Admin: 03/24/21 10:40 Dose: 120 mg Documented by: Lactated Ringer's (Lr) 1,000 mls @ 83.3 mls/hr IV .Q12H1M [facility] Stop: 03/25/21 09:14 Last Admin: 03/24/21 10:41 Dose: 83.3 mls/hr Documented by: Metoprolol Succinate (Metoprolol Succinate 50 Mg Tablet) 50 mg PO QPM [facility] Metoprolol Tartrate (Metoprolol 5 Mg/5 Ml Vial) 5 mg IVP Q6H PRN PRN Reason: Tachycardia Mirtazapine (Mirtazapine 15 Mg Tablet) 15 mg PO QPM RADHA Morphine Sulfate (Morphine 2 Mg/Ml Carpuject) 2 mg IVP Q2HR PRN PRN Reason: Pain 8 to 10 Last Admin: 03/24/21 05:47 Dose: 2 mg Documented by: Ondansetron HCl (Ondansetron Odt 4 Mg Tablet) 4 mg TL Q6HR PRN PRN Reason: Nausea / Vomiting Ondansetron HCl (Ondansetron 4 Mg/2 Ml Vial) 4 mg IVP Q6HR PRN PRN Reason: Nausea / Vomiting Oxycodone HCl (Oxycodone 5 Mg Tablet) 5 mg PO Q4HR PRN PRN Reason: Pain 5 to 7 Last Admin: 03/24/21 10:39 Dose: 5 mg Documented by: Sodium Chloride (Sodium Chloride Flush 0.9% 10 Ml Syringe) 10 ml IVP PRN PRN PRN Reason: NEEDED PER PROVIDER ORDERS Sodium Chloride (Sodium Chloride Flush 0.9% 10 Ml Syringe) 10 ml IVP 0100,0900,1700 RADHA Last Admin: 03/24/21 10:41 Dose: 10 ml Documented by: Diltiazem HCl [Cartia Xt] 120 mg PO DAILY 10/30/14 Albuterol Sulfate [Albuterol Sulfate Hfa] 2 puffs INH DAILY PRN 07/09/19 Apixaban [Eliquis] 2.5 mg PO BID 03/23/21 Memantine HCl [Namenda] 10 mg PO BID 03/23/21 Metoprolol Succinate [Toprol Xl] 50 mg PO QPM 03/23/21 Mirtazapine 15 mg PO QPM 03/23/21 clonazePAM [Clonazepam] 0.5 tab PO BID 03/23/21
[2021-03-24] MEDS: ALBUTEROL NEB 2.5 MG/3 ML INH PRN (19:13)
[2021-03-24] MEDS: METOPROLOL SUCCINATE 50 MG TABLET PO SCH (20:52)
[2021-03-24] MEDS: MIRTAZAPINE 15 MG TABLET PO SCH (20:52)
[2021-03-25] MEDS: SODIUM CHLORIDE FLUSH 0.9% 10 ML SYRINGE IVP SCH ×4 (00:11→23:53)
[2021-03-25] MEDS: MORPHINE 2 MG/ML CARPUJECT IVP PRN (04:25)
[2021-03-25] MEDS: oxyCODONE 5 MG TABLET PO PRN ×2 (04:35→20:20)
[2021-03-25 05:51] LABS: BASOPHILS % (AUTO) 0.5 %; EOSINOPHILS # (AUTO) 0.1 10^3/uL (0.0-0.7); EOSINOPHILS % (AUTO) 0.9 %; HCT - HEMATOCRIT 35.1 % (37.0-47.0); HGB - HEMOGLOBIN 11.3 g/dL (12.0-16.0); LYMPHOCYTES # (AUTO) 0.7 10^3/uL (1.5-3.5); LYMPHOCYTES % (AUTO) 8.6 %; MEAN CORPUSCULAR HEMOGLOBIN 33.3 pg (27.0-31.0); MEAN CORPUSCULAR HGB CONC 32.2 g/dL (32.0-36.0); MEAN CORPUSCULAR VOLUME 103.5 fL (81.0-99.0); MEAN PLATELET VOLUME 9.6 fL (7.9-10.8); MONOCYTES # (AUTO) 0.9 10^3/uL (0.0-1.0); MONOCYTES % (AUTO) 10.6 %; NEUTROPHILS # (AUTO) 6.4 10^3/uL (1.5-6.6); PLT - PLATELET COUNT 89 10^3/uL (130-450); RED BLOOD COUNT 3.39 10^6/uL (4.20-5.40); RED CELL DISTRIBUTION WIDTH 12.2 % (12.0-15.0); WHITE BLOOD COUNT 8.1 x10^3/uL (4.8-10.8)
[2021-03-25 06:03] LABS: CALCIUM 8.3 mg/dL (8.5-10.3); CREATININE 0.5 mg/dL (0.4-1.0); POTASSIUM 3.9 mmol/L (3.5-5.0)
[2021-03-25] MEDS ORDERED: PROPOFOL 200 MG/20 ML VIAL IVP ONE (07:17)
[2021-03-25] MEDS ORDERED: BUPIVACAINE 0.25% PF 30 ML VIAL ONE (07:18)
[2021-03-25] MEDS ORDERED: fentaNYL 100 MCG/2 ML VIAL ONE (07:19)
--- NOTE | 2021-03-25 07:27 | ANESTHESIA ---
Pre-Anesthesia VS, & Labs - Diagnosis right hip fracture - Procedure right hip nailing Vital Signs: Temp Pulse Resp BP Pulse Ox 36.7 C 100 16 130/74 93 03/25/21 06:00 03/25/21 06:00 03/25/21 06:00 03/25/21 06:00 03/25/21 06:00 Height: 5 ft 5 in Weight (kg): 42.5 kg Body Mass Index: 15.5 BMI Classification: Underweight - NPO >8 hours - Is Patient ?: No - Lab Results Current Lab Results: Laboratory Tests 03/25/21 05:30: Sodium 136, Potassium 3.9, Chloride 96 L, Carbon Dioxide 31, Anion Gap 9.0, BUN 12, Creatinine 0.5, Estimated GFR (MDRD) 117, Glucose 106 H, Calcium 8.3 L 03/25/21 05:30: WBC 8.1, RBC 3.39 L, Hgb 11.3 L, Hct 35.1 L, MCV 103.5 H, MCH 33.3 H, MCHC 32.2, RDW 12.2, Plt Count 89 L, MPV 9.6, Neut # (Auto) 6.4, Lymph # (Auto) 0.7 L, [place] # (Auto) 0.9, Eos # (Auto) 0.1, Baso # (Auto) 0.0, Absolute Nucleated RBC 0.00, Nucleated RBC % 0.0 03/24/21 08:07: Total Creatine Kinase 50 03/23/21 02:17: Vitamin B12 106 L 03/23/21 02:17: Sodium 140, Potassium 3.9, Chloride 100 L, Carbon Dioxide 32, Anion Gap 8.0, BUN 22 H, Creatinine 0.8, Estimated GFR (MDRD) 68 L, Glucose 107 H, Calcium 8.9, Magnesium 1.9, Total Bilirubin 0.9, AST 21, ALT 19, Alkaline Phosphatase 26 L, Total Protein 6.7, Albumin 3.7, Globulin 3.0, Albumin/Globulin Ratio 1.2, Lipase 26 03/23/21 02:17: WBC 9.1, RBC 3.76 L, Hgb 12.7, Hct 39.3, MCV 104.5 H, MCH 33.8 H , MCHC 32.3, RDW 12.7, Plt Count 159, MPV 9.5, Neut # (Auto) 7.6 H, Lymph # (Auto) 0.7 L, [place] # (Auto) 0.6, Eos # (Auto) 0.1, Baso # (Auto) 0.1, Absolute Nucleated RBC 0.00, Nucleated RBC % 0.0 Fish Bones: 03/25/21 05:30 03/25/21 05:30 Home Medications and Allergies Home Medications: Ambulatory Orders Apixaban [Eliquis] 2.5 mg PO BID 03/23/21 Memantine HCl [Namenda] 10 mg PO BID 03/23/21 Metoprolol Succinate [Toprol Xl] 50 mg PO QPM 03/23/21 Mirtazapine 15 mg PO QPM 03/23/21 clonazePAM [Clonazepam] 0.5 tab PO BID 03/23/21 Active Medications Acetaminophen (Acetaminophen 325 Mg Tablet) 650 mg PO Q4HR PRN PRN Reason: Pain 1 to 4 Last Admin: 03/23/21 02:50 Dose: 650 mg Documented by: Albuterol (Albuterol Neb 2.5 Mg/3 Ml) 2.5 mg INH RTQ4H PRN PRN Reason: Wheezing Last Admin: 03/24/21 19:13 Dose: 2.5 mg Documented by: Albuterol/Ipratropium (Ipratropium/Albuterol 3 Ml Neb) 3 ml INH RTQID PRN PRN Reason: Shortness of Air/Wheezing Calcium Carbonate/Glycine (Calcium Carbonate Chew 500 Mg Tablet) 500 mg PO BID [facility] Last Admin: 03/24/21 20:51 Dose: 500 mg Documented by: Cholecalciferol (Cholecalciferol 25 Mcg Tablet) 50 mcg PO DAILY [facility] Last Admin: 03/24/21 10:49 Dose: 50 mcg Documented by: Clonazepam (Clonazepam 0.5 Mg Tablet) 0.25 mg PO BID [facility] Last Admin: 03/24/21 20:51 Dose: 0.25 mg Documented by: Diltiazem HCl (Diltiazem Cd 120 Mg Capsule) 120 mg PO DAILY [facility] Last Admin: 03/24/21 10:40 Dose: 120 mg Documented by: Lactated Ringer's (Lr) 1,000 mls @ 83.3 mls/hr IV .Q12H1M [facility] Stop: 03/25/21 09:14 Last Admin: 03/24/21 20:53 Dose: 83.3 mls/hr Documented by: Metoprolol Succinate (Metoprolol Succinate 50 Mg Tablet) 50 mg PO QPM [facility] Last Admin: 03/24/21 20:52 Dose: 50 mg Documented by: Metoprolol Tartrate (Metoprolol 5 Mg/5 Ml Vial) 5 mg IVP Q6H PRN PRN Reason: Tachycardia Mirtazapine (Mirtazapine 15 Mg Tablet) 15 mg PO QPM [facility] Last Admin: 03/24/21 20:52 Dose: 15 mg Documented by: Morphine Sulfate (Morphine 2 Mg/Ml Carpuject) 2 mg IVP Q2HR PRN PRN Reason: Pain 8 to 10 Last Admin: 03/25/21 04:25 Dose: 2 mg Documented by: Ondansetron HCl (Ondansetron Odt 4 Mg Tablet) 4 mg TL Q6HR PRN PRN Reason: Nausea / Vomiting Ondansetron HCl (Ondansetron 4 Mg/2 Ml Vial) 4 mg IVP Q6HR PRN PRN Reason: Nausea / Vomiting Oxycodone HCl (Oxycodone 5 Mg Tablet) 5 mg PO Q4HR PRN PRN Reason: Pain 5 to 7 Last Admin: 03/25/21 04:35 Dose: 5 mg Documented by: Sodium Chloride (Sodium Chloride Flush 0.9% 10 Ml Syringe) 10 ml IVP PRN PRN PRN Reason: NEEDED PER PROVIDER ORDERS Sodium Chloride (Sodium Chloride Flush 0.9% 10 Ml Syringe) 10 ml IVP 0100,0900,1700 [facility] Last Admin: 03/25/21 00:11 Dose: Not Given Documented by: Diltiazem HCl [Cartia Xt] 120 mg PO DAILY 10/30/14 Albuterol Sulfate [Albuterol Sulfate Hfa] 2 puffs INH DAILY PRN 07/09/19 Apixaban [Eliquis] 2.5 mg PO BID 03/23/21 Memantine HCl [Namenda] 10 mg PO BID 03/23/21 Metoprolol Succinate [Toprol Xl] 50 mg PO QPM 03/23/21 Mirtazapine 15 mg PO QPM 03/23/21 clonazePAM [Clonazepam] 0.5 tab PO BID 03/23/21 Allergies/Adverse Reactions: Allergies Allergy/AdvReac Type Severity Reaction Status Date / Time No Known Drug Allergies Allergy Verified 03/23/21 00:10 Anes History & Medical History - Anesthetic History Anesthesia Complications: reports: No previous complications - Medical History Cardiovascular: reports: Atrial fibrillation Pulmonary: reports: Asthma Gastrointestinal: reports: Colon polyps Urinary: reports: None Neuro: reports: None Musculoskeletal: reports: None Endocrine/Autoimmune: reports: None Blood Disorders: reports: None Skin: reports: None Smoking Status: Never smoker Psychosocial: reports: No issues indicated History of Cancer?: Yes (breast cancer) - Surgical History General: reports: Colonoscopy Eyes Ears Nose Throat (EENT): reports: Tonsil/Adenoidectomy Gynecologic: reports: Other Exam General: Cooperative, No acute distress Dental: Dentures full Upper, Dentures full Lower Mouth Openin Fingerbreadth Neck Mobility: Reduced Mallampati classification: III Thyromental Distance: 4-6 cm Plan Anesthesia Type: General, Fascia Iliaca Block (right) Regional Block: Per Surgeon's request for Post Op pain control Consent for Procedure(s) Verified and Reviewed: Yes Code Status: Attempt Resuscitation ASA classification: 3-Severe systemic disease Is this case an emergency?: No
[2021-03-25] MEDS ORDERED: TRANEXAMIC ACID 1,000 MG/10 ML VIAL ONE (08:08)
[2021-03-25] MEDS ORDERED: ceFAZolin 1 GM VIAL ONE (08:08)
[2021-03-25] MEDS ORDERED: PHENYLEPHRINE 10 MG/ML VIAL ONE (08:38)
[2021-03-25] MEDS ORDERED: ROPIVACAINE 0.5% PF 20 ML AMPULE ONE (09:12)
--- NOTE | 2021-03-25 09:41 | OPERATIVE REPORT ---
Operative Report - General Admit Date: 03/23/21 Procedure Date: 03/25/21 Planned Procedure: Open reduction internal fixation right hip fracture Pre-Op Diagnosis: Displaced basilar femoral neck fracture right hip Procedure Performed: Open reduction internal fixation right hip fracture, basilar neck fracture of femoral neck, with [employer] short 11.0 mm diameter nail; 90 mm lag screw/85 mm compression screw, 32.5 mm distal locking screw - Procedure Note Primary Surgeon: Jd Tabor MD Secondary Surgeon: Kenny OSEGUERA Anesthesia Provider: Stephanie Vergara CRNA Anesthesia Technique: General LMA Estimated Blood Loss (mL): 30 Indications: This is a 85-year-old woman who took a fall from standing height prior to admission and sustained an isolated injury to right hip. She had pain and deformity, x-rays with displaced basilar femoral neck fracture right hip. She is an indoor ambulator. She is on Eliquis as an anticoagulation. She had preoperative evaluation by her hospitalist, surgery postponed to allow the effects of Eliquis to be reversed. Informed consent obtained from patient and daughter, no contraindications, hospitalist standpoint. Findings: Displaced, comminuted basilar femoral neck fracture right hip Complications: None - Other Other Information/Narrative: After satisfactory spinal anesthesia was achieved, the patient was transferred to the [place] fracture table in the supine position. Boot traction was applied to the right foot and well-leg guerrero to the nonoperative left leg. Traction was applied to the right leg through the boot with the patella facing superiorly and the hip in a neutral position with regard to abduction and adduction and hip flexion/extension. The C-arm was used to assess the reduction and showed excellent alignment on both AP and lateral views. The right hip was then prepped and draped in a sterile manner in the usual fashion using a vertical [place] transparent barrier. A 4 to 5 cm incision was made in line with the greater trochanter but proximal to the greater trochanter. The subcutaneous tissue and fascia were split. A starting bone all was used to engage the trochanteric fossa at its most lateral edge. The starting awl was impacted to lesser trochanter and a guidepin was then inserted. The position of the guidepin was confirmed on both AP and lateral views. Reaming was then carried out with the starting reamer. The 11.5 mm diameter morenita and guide was then utilized to insert the morenita through the trochanteric area and pushed distally using C-arm image intensifier and biplanar mode. The leg screw guidepin was inserted through a separate incision more distal. This was inserted in the proximate midline in both AP and lateral C arm images. The depth of the g uidepin was 95 mm. The compression screw drills were then utilized both short and long. The antirotation bar was inserted. The lag screw reamer was then utilized and placed over the previously inserted pin to the appropriate depth. The 90 mm lag screw was inserted and [id number] compression screw followed achieving nice compression at the fracture site. The alignment of the fracture was very good on both AP and lateral views as well as the fixation. A third incision was made for the distal locking screw. Bicortical fixation was achieved with a 32.5 mm cortical screw. The wounds were irrigated. The fascia was closed with 0 Vicryl. The subcutaneous tissue was closed with 2-0 Vicryl and the skin was closed with 3-0 Monocryl, Dermabond and dry sterile dressings. There is no deformity to the leg. The patient tolerated the procedure well. She did receive 2 g of Ancef prior to the incision.She received 1 gram of tranxeamic acid
[2021-03-25] MEDS ORDERED: LACTATED RINGERS 1,000 ML IV ONE ×2 (10:05→10:55)
--- NOTE | 2021-03-25 10:47 | XRAY Report ---
PROCEDURE: OR C-Arm Procedure INDICATIONS: RIGHT HIP PINNING TECHNIQUE: 2 intraoperative fluoroscopic images of right hip were obtained. COMPARISON: 03/23/2021 FINDINGS: Intraoperative fluoroscopic images of right hip shows internal fixation of previously noted proximal right femoral fracture with intramedullary morenita and surgical screws in place. Alignment of right hip i s anatomic. Total fluoroscopy time is 39 seconds. IMPRESSION: Fluoroscopy guidance was provided intraoperatively for ORIF of right proximal femur. Reviewed by: Rico Carey MD on 03/25/2021 10:46 AM PDT Approved by: Rioc Carey MD on 03/25/2021 10:46 AM PDT Station ID: [id number]
--- NOTE | 2021-03-25 10:59 | ANESTHESIA POST OP EVALUATION ---
Anesthesia Post Eval - Post Anesthesia Eval Vitals: Last Vital Signs Temp 36.6 C 03/25/21 10:55 Pulse 93 03/25/21 10:55 Resp 12 03/25/21 10:55 BP 123/81 H 03/25/21 10:55 Pulse Ox 100 03/25/21 10:55 CV Function Including HR & BP: Stable Pain Control: Satisfactory Nausea & Vomiting: Negative Mental Status: Baseline Respiratory Status: Airway Patent Hydration Status: Satisfactory Anesthesia Complications: None
[2021-03-25] MEDS ORDERED: ceFAZolin 3 GM in SODIUM CHLORIDE 0.9% 100ML 100 ML IV ONE ×2 (11:05→11:06)
[2021-03-25] MEDS ORDERED: LIDOCAINE MPF 2%-EPI 1:200000 20 ML VIAL ONE (12:17)
[2021-03-25] MEDS ORDERED: BUPIVACAINE 0.5% PF 10 ML VIAL ONE (12:17)
[2021-03-25] MEDS: clonazePAM 0.5 MG TABLET PO SCH ×2 (12:46→20:20)
[2021-03-25] MEDS: CALCIUM CARBONATE CHEW 500 MG TABLET PO SCH ×2 (12:46→20:20)
[2021-03-25] MEDS: ceFAZolin 2 GM/50 ML 2 GM/50 ML BAG IV SCH ×2 (13:16→19:11)
[2021-03-25] MEDS: SODIUM CHLORIDE FLUSH 0.9% 10 ML SYRINGE IVP PRN ×2 (13:16→19:11)
--- NOTE | 2021-03-25 15:29 | PROVIDER PROGRESS NOTE ---
Assessment/Plan - Problem List (1) Respiratory failure with hypoxia Assessment/Plan: 03/25 Patient needed 5 L of oxygen by NC now after status post of right hip repair on today, Patient also show tachycardia. Patient did not show respiratory distress. pt Has history of A fibrillation with RVR . Patient also has history COPD, pulmonary hypertension. We will check with chest x-ray, will check hemoglobin si nce patient status post of surgery with possible significant loss of blood, We will start with gentle intravenous IV fluids. 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 We will continue Treated for COPD, Supplemental oxygen as needed. Metoprolol intravenous as needed to control patient A fibrillation with RVR (2) Intertrochanteric fracture of right hip 714, status post of right hip repair on today. We will have prophylaxis antibiotics for 2 back of Ancef, We will start with patient home medication Eliquis as DVT prophylaxis, We will continue pain control but hold opiates since patient has respiratory failure with hypoxia, We will continue physical therapist and occupational therapist consult, Consult with social work for discharge planning Patient had a mechanical fall at home. Osteoporosis on past medical history. X- ray will reveal right hip fracture, Consult with orthopedic surgeon, plan to have surgery on tomorrow because the patient take Eliquis in the home for his a fibrillation which needed take 1 to 2 days for wane off eliquis effect. Continue pain control, n.p.o. after midnight. DVT prophylaxis per surgeon after surgery, we will hold blood thinner now. (3) Atrial fibrillation with RVR Conclusion/Plan: 03-25 We will do EKG, continue metoprolol intravenous as needed to control tac hycardia and atrial fibrillation with RVR. We will check troponin as well,Since patient blood pressure slightly drop SBP 91. Rate is controlled After resume patient home Cardizem and metoprolol. She is on anticoagulation. 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 After surgery Reclast injection for the year. (5) Unintentional weight loss Conclusion/Plan: She has no B symptoms. She is not depressed. She states that she is not a failure to thrive. She does not know why she lost her appetite. But it slowly starting to come back and she hopes to regain her weight. (6) Abnormal urinalysis Conclusion/Plan: She does not have urgency, frequency, dysuria. Many squamous cells in the specimen. it is likely contamination. She does not have a fever or an elevated white cell count. no antibiotics at this time. (7)COPD She Patient has a history of COPD, we will add albuterol no DuoNeb as needed, supplemental oxygen as needed (8)pulmonary hypertension her Echo show patient had a 69 mmHG RVSP, Pulmonary hypertension. 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 Patient may follow- up customer quality engineer: To continue manage (10)pre-operation assessment She had 0.9% Estimated rate of myocardial infarction, pulmonary edema, jose antonio tricular fibrillation, cardiac collapse or complete heart block, low risk - Current Meds Current Meds: Current Medications Generic Name Dose Route Start Last Admin Trade Name Freq PRN Reason Stop Dose Admin Acetaminophen 650 mg 03/23/21 02:00 03/23/21 02:50 Acetaminophen 325 Mg Tablet PO 650 mg Q4HR PRN Administration Pain 1 to 4 Albuterol 2.5 mg 03/24/21 06:56 03/24/21 19:13 Albuterol Neb 2.5 Mg/3 Ml INH 2.5 mg RTQ4H PRN Administration Wheezing Calcium Carbonate/Glycine 500 mg 03/24/21 11:00 03/25/21 12:46 Calcium Carbonate Chew 500 Mg Tablet PO Not Given BID RADHA Cholecalciferol 50 mcg 03/24/21 11:00 03/24/21 10:49 Cholecalciferol 25 Mcg Tablet PO 50 mcg DAILY RADHA Administration Clonazepam 0.25 mg 03/24/21 09:00 03/25/21 12:46 Clonazepam 0.5 Mg Tablet PO Not Given BID RADHA Diltiazem HCl 120 mg 03/24/21 09:00 03/24/21 10:40 Diltiazem Cd 120 Mg Capsule PO 120 mg DAILY RADHA Administration Cefazolin Sodium/Dextrose 2 gm in 50 mls @ 100 mls/hr 03/25/21 11:30 03/25/21 13:50 Ancef 2 Gm/50 Ml IV 03/25/21 19:59 Infused Q8H RADHA Infusion Metoprolol Succinate 50 mg 03/24/21 21:00 03/24/21 20:52 Metoprolol Succinate 50 Mg Tablet PO 50 mg QPM RADHA Administration Mirtazapine 15 mg 03/24/21 21:00 03/24/21 20:52 Mirtazapine 15 Mg Tablet PO 15 mg QPM RADHA Administration Morphine Sulfate 2 mg 03/23/21 02:00 03/25/21 04:25 Morphine 2 Mg/Ml Carpuject IVP 2 mg Q2HR PRN Administration Pain 8 to 10 Oxycodone HCl 5 mg 03/23/21 02:00 03/25/21 04:35 Oxycodone 5 Mg Tablet PO 5 mg Q4HR PRN Administration Pain 5 to 7 Sodium Chloride 10 ml 03/23/21 02:00 03/25/21 13:16 Sodium Chloride Flush 0.9% 10 Ml Syringe IVP 10 ml PRN PRN Administration NEEDED PER PROVIDER ORDERS Sodium Chloride 10 ml 03/23/21 09:00 03/25/21 07:40 Sodium Chloride Flush 0.9% 10 Ml Syringe IVP Not Given 0100,0900,1700 RADHA - Lab Result Fish Bone Diagrams: 03/25/21 05:30 03/25/21 05:30 - Additional Planning My Orders: My Active Orders 03/24/21 21:00 Metoprolol Succinate [Toprol Xl] 50 mg PO QPM Mirtazapine [Remeron] 15 mg PO QPM 03/25/21 H&H [HEMOGLOBIN AND HEMATOCRIT] [HEME] Urgent Evaluate and Treat OT [OT] Routine Evaluate and Treat PT [PT] Routine 03/25/21 11:06 Incentive Spirometry - RT [RC] TID 03/25/21 11:09 Ketorolac Inj (15Mg) [Toradol Inj (15Mg)] 15 mg IVP Q6HR PRN 03/25/21 Lunch Soft Mechanical Diet [DIET] 03/25/21 11:30 ceFAZolin 2 GM/50 ML [Ancef 2 gm/50 ml] 2 gm in 50 ml IV Q8H 03/25/21 15:20 Chest 1 View X-Ray [XR] Stat 03/25/21 15:26 TROPONIN I HIGH SENSITIVITY [IAI] Stat 03/25/21 16:00 NS 0.9% @ 83.333 mls/hr Sodium Chloride 0.9% [Normal Saline 0.9%] 1,000 ml IV 83.333 mls/hr 03/25/21 21:00 H&H [HEMOGLOBIN AND HEMATOCRIT] [HEME] Timed Apixaban [Eliquis] 2.5 mg PO BID 03/26/21 05:00 BMP - BASIC METABOLIC PANEL [CHEM] DAILYLAB CBC - COMP BLD CT W/AUTO DIFF [HEME] DAILYLAB 03/27/21 05:00 BMP - BASIC METABOLIC PANEL [CHEM] DAILYLAB CBC - COMP BLD CT W/AUTO DIFF [HEME] DAILYLAB 03/28/21 05:00 BMP - BASIC METABOLIC PANEL [CHEM] DAILYLAB CBC - COMP BLD CT W/AUTO DIFF [HEME] DAILYLAB 03/29/21 05:00 BMP - BASIC METABOLIC PANEL [CHEM] DAILYLAB CBC - COMP BLD CT W/AUTO DIFF [HEME] DAILYLAB Subjective - Subjective Nursing Reports: No Complaints Objective Vital Signs: Vital Signs - 24 hr 03/24/21 03/24/21 03/24/21 15:48 19:16 21:26 Temperature 36.8 C 37.1 C Heart Rate 112 H Heart Rate [ Brachial] Heart Rate [ 100 98 Radial] Respiratory 15 20 18 Rate Blood Pressure Blood Pressure 126/70 146/85 H [Right Brachial artery] O2 Saturation 95 95 03/25/21 03/25/21 03/25/21 00:10 06:00 10:05 Temperature 37 C 36.7 C 36.6 C Heart Rate 98 Heart Rate [ 90 100 Brachial] Heart Rate [ Radial] Respiratory 18 16 14 Rate Blood Pressure 107/49 L Blood Pressure 126/80 130/74 [Right Brachial artery] O2 Saturation 91 L 93 100 03/25/21 03/25/21 03/25/21 10:10 10:15 10:20 Temperature 36.8 C Heart Rate 102 H 90 95 Heart Rate [ Brachial] Heart Rate [ Radial] Respiratory 11 L 9 L 10 L Rate Blood Pressure 107/62 125/59 L 115/72 Blood Pressure [Right Brachial artery] O2 Saturation 100 100 100 03/25/21 03/25/21 03/25/21 10:25 10:31 10:35 Temperature Heart Rate 100 98 96 Heart Rate [ Brachial] Heart Rate [ Radial] Respiratory 12 9 L 11 L Rate Blood Pressure 126/70 131/74 H Blood Pressure [Right Brachial artery] O2 Saturation 100 100 100 03/25/21 03/25/21 03/25/21 10:40 10:45 10:50 Temperature 36.7 C Heart Rate 95 88 97 Heart Rate [ Brachial] Heart Rate [ Radial] Respiratory 11 L 12 12 Rate Blood Pressure 115/66 131/73 H 122/75 Blood Pressure [Right Brachial artery] O2 Saturation 100 100 100 03/25/21 03/25/21 03/25/21 10:55 11:00 11:06 Temperature 36.6 C 36.5 C Heart Rate 93 94 97 Heart Rate [ Brachial] Heart Rate [ Radial] Respiratory 12 14 18 Rate Blood Pressure 123/81 H 122/69 132/76 H Blood Pressure [Right Brachial artery] O2 Saturation 100 100 100 03/25/21 03/25/21 03/25/21 11:10 11:15 11:20 Temperature 36.4 C L Heart Rate 98 99 97 Heart Rate [ Brachial] Heart Rate [ Radial] Respiratory 12 13 13 Rate Blood Pressure 124/74 118/76 107/58 L Blood Pressure [Right Brachial artery] O2 Saturation 100 98 100 03/25/21 03/25/21 03/25/21 11:30 11:41 11:53 Temperature 36.6 C 36.6 C 36.3 C L Heart Rate 101 H 97 Heart Rate [ 97 Brachial] Heart Rate [ Radial] Respiratory 16 14 18 Rate Blood Pressure 98/66 104/68 Blood Pressure 113/60 [Right Brachial artery] O2 Saturation 100 100 100 03/25/21 03/25/21 03/25/21 12:00 12:21 12:30 Temperature Heart Rate Heart Rate [ 100 99 99 Brachial] Heart Rate [ Radial] Respiratory 16 16 15 Rate Blood Pressure Blood Pressure 104/63 96/47 L 91/48 L [Right Brachial artery] O2 Saturation 100 87 L 86 L 03/25/21 03/25/21 03/25/21 12:42 13:15 14:09 Temperature Heart Rate Heart Rate [ 109 H 95 107 H Brachial] Heart Rate [ Radial] Respiratory 16 17 16 Rate Blood Pressure Blood Pressure 118/67 116/54 L 112/64 [Right Brachial artery] O2 Saturation 95 100 100 03/25/21 03/25/21 14:22 14:47 Temperature Heart Rate Heart Rate [ 111 H 109 H Brachial] Heart Rate [ Radial] Respiratory 18 17 Rate Blood Pressure Blood Pressure 115/53 L 104/55 L [Right Brachial artery] O2 Saturation 100 100 Oxygen O2 Source Simple Mask I&O (Last 24 Hrs): Intake and Output Totals x24h 03/23/21 03/24/21 03/25/21 23:59 23:59 23:59 Intake Total 1870 2894.66 1050 Output Total 340 900 275 Balance 1530 1994.66 775 General: Alert, Cooperative, No acute distress HEENT: Atraumatic Neck: Supple Lymphatic: no adenopathy Neuro: Alert, Non Focal Cardiovascular: Regular rate, Normal S1, Normal S2 Respiratory: Chest non-tender, No respiratory distress Abdomen: Soft Extremities: Normal pulses - Results Results: Laboratory Results WBC 8.1 x10^3/uL (4.8-10.8) 03/25/21 05:30 RBC 3.39 10^6/uL (4.20-5.40) L 03/25/21 05:30 Hgb 11.3 g/dL (12.0-16.0) L 03/25/21 05:30 Hct 35.1 % (37.0-47.0) L 03/25/21 05:30 MCV 103.5 fL (81.0-99.0) H 03/25/21 05:30 MCH 33.3 pg (27.0-31.0) H 03/25/21 05:30 MCHC 32.2 g/dL (32.0-36.0) 03/25/21 05:30 RDW 12.2 % (12.0-15.0) 03/25/21 05:30 Plt Count 89 10^3/uL (130-450) L 03/25/21 05:30 MPV 9.6 fL (7.9-10.8) 03/25/21 05:30 Neut # (Auto) 6.4 10^3/uL (1.5-6.6) 03/25/21 05:30 Lymph # (Auto) 0.7 10^3/uL (1.5-3.5) L 03/25/21 05:30 [place] # (Auto) 0.9 10^3/uL (0.0-1.0) 03/25/21 05:30 Eos # (Auto) 0.1 10^3/uL (0.0-0.7) 03/25/21 05:30 Baso # (Auto) 0.0 10^3/uL (0.0-0.1) 03/25/21 05:30 Absolute Nucleated RBC 0.00 x10^3/uL 03/25/21 05:30 Nucleated RBC % 0.0 /100WBC 03/25/21 05:30 Sodium 136 mmol/L (135-145) 03/25/21 05:30 Potassium 3.9 mmol/L (3.5-5.0) 03/25/21 05:30 Chloride 96 mmol/L (101-111) L 03/25/21 05:30 Carbon Dioxide 31 mmol/L (21-32) 03/25/21 05:30 Anion Gap 9.0 (6-13) 03/25/21 05:30 BUN 12 mg/dL (6-20) 03/25/21 05:30 Creatinine 0.5 mg/dL (0.4-1.0) 03/25/21 05:30 Estimated GFR (MDRD) 117 (>89) 03/25/21 05:30 Glucose 106 mg/dL (70-100) H 03/25/21 05:30 Calcium 8.3 mg/dL (8.5-10.3) L 03/25/21 05:30 Magnesium 1.9 mg/dL (1.7-2.8) 03/23/21 02:17 Total Bilirubin 0.9 mg/dL (0.2-1.0) 03/23/21 02:17 AST 21 IU/L (10-42) 03/23/21 02:17 ALT 19 IU/L (10-60) 03/23/21 02:17 Alkaline Phosphatase 26 IU/L (42-121) L 03/23/21 02:17 Total Creatine Kinase 50 IU/L (22-269) 03/24/21 08:07 Total Protein 6.7 g/dL (6.7-8.2) 03/23/21 02:17 Albumin 3.7 g/dL (3.2-5.5) 03/23/21 02:17 Globulin 3.0 g/dL (2.1-4.2) 03/23/21 02:17 Albumin/Globulin Ratio 1.2 (1.0-2.2) 03/23/21 02:17 Lipase 26 U/L (22-51) 03/23/21 02:17 Vitamin B12 106 pg/mL (180-914) L 03/23/21 02:17 Urine Color YELLOW 03/23/21 01:38 Urine Clarity SL. CLOUDY (CLEAR) 03/23/21 01:38 Urine pH 5.0 PH (5.0-7.5) 03/23/21 01:38 Ur Specific [place] >=1.030 (1.002-1.030) H 03/23/21 01:38 Urine Protein 30 mg/dL (NEGATIVE) H 03/23/21 01:38 Urine Glucose (UA) NEGATIVE mg/dL (NEGATIVE) 03/23/21 01:38 Urine Ketones NEGATIVE mg/dL (NEGATIVE) 03/23/21 01:38 Urine Occult Blood TRACE-INTA (NEGATIVE) 03/23/21 01:38 Urine Nitrite POSITIVE (NEGATIVE) H 03/23/21 01:38 Urine Bilirubin NEGATIVE (NEGATIVE) 03/23/21 01:38 Urine Urobilinogen 0.2 (NORMAL) E.U./dL (NORMAL) 03/23/21 01:38 Ur Leukocyte Esterase SMALL (NEGATIVE) H 03/23/21 01:38 Urine RBC 0-5 /HPF (0-5) 03/23/21 01:38 Urine WBC >25 /HPF (0-5) H 03/23/21 01:38 Ur Squamous Epith Cells MOD Squamous (<= Few) H 03/23/21 01:38 Urine Bacteria Many /HPF (None Seen) H 03/23/21 01:38 Ur Microscopic Review INDICATED 03/23/21 01:38 Urine Culture Comments NOT INDICATED 03/23/21 01:38 Nasal Adenovirus (PCR) NOT DETECTED 03/23/21 02:25 Nasal B. parapertussis DNA (PCR) NOT DETECTED 03/23/21 02:25 Nasal Coronavir 229E PCR NOT DETECTED 03/23/21 02:25 Nasal Coronavir HKU1 PCR NOT DETECTED 03/23/21 02:25 Nasal Coronavir NL63 PCR NOT DETECTED 03/23/21 02:25 Nasal Coronavir OC43 PCR NOT DETECTED 03/23/21 02:25 Nasal Enterovir/Rhinovir PCR NOT DETECTED 03/23/21 02:25 Nasal Influenza B PCR NOT DETECTED 03/23/21 02:25 Nasal Influenza A PCR NOT DETECTED 03/23/21 02:25 Nasal Parainfluen 1 PCR NOT DETECTED 03/23/21 02:25 Nasal Parainfluen 2 PCR NOT DETECTED 03/23/21 02:25 Nasal Parainfluen 3 PCR NOT DETECTED 03/23/21 02:25 Nasal Parainfluen 4 PCR NOT DETECTED 03/23/21 02:25 Nasal RSV (PCR) NOT DETECTED 03/23/21 02:25 Nasal B.pertussis DNA PCR NOT DETECTED 03/23/21 02:25 Nasal C.pneumoniae (PCR) NOT DETECTED 03/23/21 02:25 Rhett Human Metapneumo PCR NOT DETECTED 03/23/21 02:25 Nasal M.pneumoniae (PCR) NOT DETECTED 03/23/21 02:25 Nasal SARS-CoV-2 (PCR) NOT DETECTED 03/23/21 02:25 ABX Reporting Has patient been on IV antibiotics over the past 48 hours?: Yes Current Medications - Current Medications Current Medications: Active Medications Acetaminophen (Acetaminophen 325 Mg Tablet) 650 mg PO Q4HR PRN PRN Reason: Pain 1 to 4 Last Admin: 03/23/21 02:50 Dose: 650 mg Documented by: Albuterol (Albuterol Neb 2.5 Mg/3 Ml) 2.5 mg INH RTQ4H PRN PRN Reason: Wheezing Last Admin: 03/24/21 19:13 Dose: 2.5 mg Documented by: Albuterol/Ipratropium (Ipratropium/Albuterol 3 Ml Neb) 3 ml INH RTQID PRN PRN Reason: Shortness of Air/Wheezing Apixaban (Apixaban 2.5 Mg Tablet) 2.5 mg PO BID [facility] Calcium Carbonate/Glycine (Calcium Carbonate Chew 500 Mg Tablet) 500 mg PO BID [facility] Last Admin: 03/25/21 12:46 Dose: Not Given Documented by: Cholecalciferol (Cholecalciferol 25 Mcg Tablet) 50 mcg PO DAILY [facility] Last Admin: 03/24/21 10:49 Dose: 50 mcg Documented by: Clonazepam (Clonazepam 0.5 Mg Tablet) 0.25 mg PO BID [facility] Last Admin: 03/25/21 12:46 Dose: Not Given Documented by: Diltiazem HCl (Diltiazem Cd 120 Mg Capsule) 120 mg PO DAILY [facility] Last Admin: 03/24/21 10:40 Dose: 120 mg Documented by: Cefazolin Sodium/Dextrose (Ancef 2 Gm/50 Ml) 2 gm in 50 mls @ 100 mls/hr IV Q8H [facility] Stop: 03/25/21 19:59 Last Infusion: 03/25/21 13:50 Dose: Infused Documented by: Sodium Chloride (Normal Saline 0.9%) 1,000 mls @ 83.333 mls/hr IV .Q12H [facility] Stop: 03/26/21 15:59 Ketorolac Tromethamine (Ketorolac 15 Mg/Ml Vial) 15 mg IVP Q6HR PRN PRN Reason: PAIN Stop: 03/30/21 11:08 Metoprolol Succinate (Metoprolol Succinate 50 Mg Tablet) 50 mg PO QPM [facility] Last Admin: 03/24/21 20:52 Dose: 50 mg Documented by: Metoprolol Tartrate (Metoprolol 5 Mg/5 Ml Vial) 5 mg IVP Q6H PRN PRN Reason: Tachycardia Mirtazapine (Mirtazapine 15 Mg Tablet) 15 mg PO QPM [facility] Last Admin: 03/24/21 20:52 Dose: 15 mg Documented by: Morphine Sulfate (Morphine 2 Mg/Ml Carpuject) 2 mg IVP Q2HR PRN PRN Reason: Pain 8 to 10 Last Admin: 03/25/21 04:25 Dose: 2 mg Documented by: Ondansetron HCl (Ondansetron Odt 4 Mg Tablet) 4 mg TL Q6HR PRN PRN Reason: Nausea / Vomiting Ondansetron HCl (Ondansetron 4 Mg/2 Ml Vial) 4 mg IVP Q6HR PRN PRN Reason: Nausea / Vomiting Oxycodone HCl (Oxycodone 5 Mg Tablet) 5 mg PO Q4HR PRN PRN Reason: Pain 5 to 7 Last Admin: 03/25/21 04:35 Dose: 5 mg Documented by: Sodium Chloride (Sodium Chloride Flush 0.9% 10 Ml Syringe) 10 ml IVP PRN PRN PRN Reason: NEEDED PER PROVIDER ORDERS Last Admin: 03/25/21 13:16 Dose: 10 ml Documented by: Sodium Chloride (Sodium Chloride Flush 0.9% 10 Ml Syringe) 10 ml IVP 0100,0900,1700 [facility] Last Admin: 03/25/21 07:40 Dose: Not Given Documented by: Diltiazem HCl [Cartia Xt] 120 mg PO DAILY 10/30/14 Albuterol Sulfate [Albuterol Sulfate Hfa] 2 puffs INH DAILY PRN 07/09/19 Apixaban [Eliquis] 2.5 mg PO BID 03/23/21 Memantine HCl [Namenda] 10 mg PO BID 03/23/21 Metoprolol Succinate [Toprol Xl] 50 mg PO QPM 03/23/21 Mirtazapine 15 mg PO QPM 03/23/21 clonazePAM [Clonazepam] 0.5 tab PO BID 03/23/21
[2021-03-25 15:50] LABS: HCT - HEMATOCRIT 36.4 % (37.0-47.0); HGB - HEMOGLOBIN 11.7 g/dL (12.0-16.0)
[2021-03-25] MEDS: METOPROLOL 5 MG/5 ML VIAL IVP PRN (15:57)
[2021-03-25] MEDS: CHOLECALCIFEROL 25 MCG TABLET PO SCH (16:00)
[2021-03-25] MEDS ORDERED: SODIUM CHLORIDE 0.9% 1,000 ML IV SCH (16:00)
[2021-03-25] MEDS: diltiaZEM CD 120 MG CAPSULE PO SCH (16:01)
--- NOTE | 2021-03-25 16:15 | XRAY Report ---
PROCEDURE: Chest 1 View X-Ray INDICATIONS: sob TECHNIQUE: One view of the chest was acquired. COMPARISON: 03/23/2021 FINDINGS: Surgical changes and devices: Left axillary clips. Lungs and pleura: Emphysematous change. Developing interstitial pulmonary edema. Left basilar atelect asis and possible pleural fluid. Mediastinum: Mediastinal contours appear normal. Mild cardiomegaly. Bones and chest wall: No suspicious bony lesions. Overlying soft tissues appear unremarkable. IMPRESSION: 1. COPD. 2. Mild cardiomegaly. 3. Developing pulmonary edema, with left basilar atelectasis and pleural fluid. Reviewed by: Elvis Humphries MD on 03/25/2021 4:14 PM PDT Approved by: Elvis Humphries MD on 03/25/2021 4:14 PM PDT Station ID: [id number]
[2021-03-25] MEDS ORDERED: FUROSEMIDE 20 MG/2 ML VIAL IVP ONE (16:36)
[2021-03-25] MEDS ORDERED: diltiaZEM 30 MG TABLET PO STA (18:53)
[2021-03-25] MEDS: KETOROLAC 15 MG/ML VIAL IVP PRN (20:14)
[2021-03-25] MEDS: METOPROLOL SUCCINATE 50 MG TABLET PO SCH (20:19)
[2021-03-25] MEDS: APIXABAN 2.5 MG TABLET PO SCH (20:19)
[2021-03-25] MEDS: MIRTAZAPINE 15 MG TABLET PO SCH (20:20)
[2021-03-25 21:38] LABS: HCT - HEMATOCRIT 32.4 % (37.0-47.0); HGB - HEMOGLOBIN 10.7 g/dL (12.0-16.0)
[2021-03-26] MEDS: KETOROLAC 15 MG/ML VIAL IVP PRN ×4 (06:00→22:06)
[2021-03-26 06:29] LABS: BASOPHILS % (AUTO) 0.4 %; HCT - HEMATOCRIT 34.4 % (37.0-47.0); LYMPHOCYTES # (AUTO) 0.7 10^3/uL (1.5-3.5); LYMPHOCYTES % (AUTO) 7.1 %; MEAN CORPUSCULAR HEMOGLOBIN 33.5 pg (27.0-31.0); MEAN CORPUSCULAR VOLUME 104.9 fL (81.0-99.0); MONOCYTES % (AUTO) 9.5 %; NEUTROPHILS # (AUTO) 8.3 10^3/uL (1.5-6.6); NEUTROPHILS % (AUTO) 82.6 %; PLT - PLATELET COUNT 118 10^3/uL (130-450); RED BLOOD COUNT 3.28 10^6/uL (4.20-5.40); RED CELL DISTRIBUTION WIDTH 12.2 % (12.0-15.0)
[2021-03-26 06:35] LABS: CREATININE 1.1 mg/dL (0.4-1.0); POTASSIUM 4.7 mmol/L (3.5-5.0)
[2021-03-26] MEDS ORDERED: SODIUM CHLORIDE 0.9% 1,000 ML IV SCH (09:00)
[2021-03-26] MEDS: oxyCODONE 5 MG TABLET PO PRN (09:47)
[2021-03-26] MEDS: polyethylene glycoL 3350 17 GM PACKET PO SCH (09:50)
[2021-03-26] MEDS: clonazePAM 0.5 MG TABLET PO SCH ×2 (09:50→20:25)
[2021-03-26] MEDS: diltiaZEM CD 120 MG CAPSULE PO SCH (09:50)
[2021-03-26] MEDS: CALCIUM CARBONATE CHEW 500 MG TABLET PO SCH ×2 (09:50→20:26)
[2021-03-26] MEDS: CHOLECALCIFEROL 25 MCG TABLET PO SCH (09:50)
[2021-03-26] MEDS: APIXABAN 2.5 MG TABLET PO SCH ×2 (09:50→20:26)
[2021-03-26] MEDS: SODIUM CHLORIDE FLUSH 0.9% 10 ML SYRINGE IVP SCH ×3 (09:51→23:37)
[2021-03-26] MEDS: MULTIVITAMIN W/MINERALS TABLET PO SCH (14:31)
--- NOTE | 2021-03-26 15:04 | PROVIDER PROGRESS NOTE ---
Subjective - General Admit Date: 03/23/21 Procedure Date: 03/25/21 Post Op Days: 1 Procedure Performed: Open reduction internal fixation basilar femoral neck fracture right hip wi - Review of Systems Wound/Incisions: positive: Dressing dry and intact General: negative: Other (Denies pain to right hip) Objective - Patient Data Vital Signs: Vital Signs x48h Temp Pulse Pulse Pulse Pulse Pulse Resp 03/26/21 13:00 36.7 C 102 H 18 03/26/21 10:45 61 120 H 88 03/26/21 08:28 36.3 C L 96 16 BP BP BP BP Pulse Ox 03/26/21 13:00 115/53 L 87 L 03/26/21 10:45 127/65 96/77 101/52 L 03/26/21 08:28 108/61 95 Weight: Weight 03/24/21 03/25/21 03/26/21 23:59 23:59 23:59 Weight (kg) 42.5 kg Intake & Output: Intake and Output Totals x24h 03/24/21 03/25/21 03/26/21 23:59 23:59 23:59 Intake Total 2894.66 1368.06 320 Output Total 900 725 300 Balance 1994.66 643.06 20 - Lab Results Lab Results: 03/26/21 06:24 03/26/21 06:24 Other Lab Results: Lab Results x24hrs 03/26/21 03/26/21 03/26/21 Range/Units 06:24 06:24 06:24 WBC 10.0 (4.8-10.8) x10^3/uL RBC 3.28 L (4.20-5.40) 10^6/uL Hgb 11.0 L (12.0-16.0) g/dL Hct 34.4 L (37.0-47.0) % MCV 104.9 H (81.0-99.0) fL MCH 33.5 H (27.0-31.0) pg MCHC 32.0 (32.0-36.0) g/dL RDW 12.2 (12.0-15.0) % Plt Count 118 L (130-450) 10^3/uL MPV 10.0 (7.9-10.8) fL Neut # (Auto) 8.3 H (1.5-6.6) 10^3/uL Lymph # (Auto) 0.7 L (1.5-3.5) 10^3/uL Mchenry # (Auto) 1.0 (0.0-1.0) 10^3/uL Eos # (Auto) 0.0 (0.0-0.7) 10^3/uL Baso # (Auto) 0.0 (0.0-0.1) 10^3/uL Absolute Nucleated RBC 0.00 x10^3/uL Nucleated RBC % 0.0 /100WBC Sodium 135 (135-145) mmol/L Potassium 4.7 (3.5-5.0) mmol/L Chloride 92 L (101-111) mmol/L Carbon Dioxide 32 (21-32) mmol/L Anion Gap 11.0 (6-13) BUN 22 H (6-20) mg/dL Creatinine 1.1 H (0.4-1.0) mg/dL Estimated GFR (MDRD) 47 L (>89) Glucose 113 H (70-100) mg/dL Calcium 8.0 L (8.5-10.3) mg/dL Troponin I High Sens 65.7 H* (2.3-14.8) ng/L 03/25/21 03/25/21 03/25/21 Range/Units 21:29 21:29 15:43 WBC (4.8-10.8) x10^3/uL RBC (4.20-5.40) 10^6/uL Hgb 10.7 L (12.0-16.0) g/dL Hct 32.4 L (37.0-47.0) % MCV (81.0-99.0) fL MCH (27.0-31.0) pg MCHC (32.0-36.0) g/dL RDW (12.0-15.0) % Plt Count (130-450) 10^3/uL MPV (7.9-10.8) fL Neut # (Auto) (1.5-6.6) 10^3/uL Lymph # (Auto) (1.5-3.5) 10^3/uL Mchenry # (Auto) (0.0-1.0) 10^3/uL Eos # (Auto) (0.0-0.7) 10^3/uL Baso # (Auto) (0.0-0.1) 10^3/uL Absolute Nucleated RBC x10^3/uL Nucleated RBC % /100WBC Sodium (135-145) mmol/L Potassium (3.5-5.0) mmol/L Chloride (101-111) mmol/L Carbon Dioxide (21-32) mmol/L Anion Gap (6-13) BUN (6-20) mg/dL Creatinine (0.4-1.0) mg/dL Estimated GFR (MDRD) (>89) Glucose (70-100) mg/dL Calcium (8.5-10.3) mg/dL Troponin I High Sens 68.2 H* 46.9 H* (2.3-14.8) ng/L 03/25/21 Range/Units 15:34 WBC (4.8-10.8) x10^3/uL RBC (4.20-5.40) 10^6/uL Hgb 11.7 L (12.0-16.0) g/dL Hct 36.4 L (37.0-47.0) % MCV (81.0-99.0) fL MCH (27.0-31.0) pg MCHC (32.0-36.0) g/dL RDW (12.0-15.0) % Plt Count (130-450) 10^3/uL MPV (7.9-10.8) fL Neut # (Auto) (1.5-6.6) 10^3/uL Lymph # (Auto) (1.5-3.5) 10^3/uL Mchenry # (Auto) (0.0-1.0) 10^3/uL Eos # (Auto) (0.0-0.7) 10^3/uL Baso # (Auto) (0.0-0.1) 10^3/uL Absolute Nucleated RBC x10^3/uL Nucleated RBC % /100WBC Sodium (135-145) mmol/L Potassium (3.5-5.0) mmol/L Chloride (101-111) mmol/L Carbon Dioxide (21-32) mmol/L Anion Gap (6-13) BUN (6-20) mg/dL Creatinine (0.4-1.0) mg/dL Estimated GFR (MDRD) (>89) Glucose (70-100) mg/dL Calcium (8.5-10.3) mg/dL Troponin I High Sens (2.3-14.8) ng/L - Current Medications Current Medications: Current Medications Generic Name Dose Route Start Last Admin Trade Name Freq PRN Reason Stop Dose Admin Acetaminophen 650 mg 03/23/21 02:00 03/23/21 02:50 Acetaminophen 325 Mg Tablet PO 650 mg Q4HR PRN Administration Pain 1 to 4 Albuterol 2.5 mg 03/24/21 06:56 03/24/21 19:13 Albuterol Neb 2.5 Mg/3 Ml INH 2.5 mg RTQ4H PRN Administration Wheezing Apixaban 2.5 mg 03/25/21 21:00 03/26/21 09:50 Apixaban 2.5 Mg Tablet PO 2.5 mg BID RADHA Administration Calcium Carbonate/Glycine 500 mg 03/24/21 11:00 03/26/21 09:50 Calcium Carbonate Chew 500 Mg Tablet PO 500 mg BID RADHA Administration Cholecalciferol 50 mcg 03/24/21 11:00 03/26/21 09:50 Cholecalciferol 25 Mcg Tablet PO 50 mcg DAILY RADHA Administration Clonazepam 0.25 mg 03/24/21 09:00 03/26/21 09:50 Clonazepam 0.5 Mg Tablet PO 0.25 mg BID RADHA Administration Diltiazem HCl 120 mg 03/24/21 09:00 03/26/21 09:50 Diltiazem Cd 120 Mg Capsule PO 120 mg DAILY RADHA Administration Sodium Chloride 1,000 mls @ 75 mls/hr 03/26/21 09:00 03/26/21 09:51 Normal Saline 0.9% IV 03/26/21 22:19 75 mls/hr .[id number] RADHA Administration Ketorolac Tromethamine 15 mg 03/25/21 11:09 03/26/21 06:00 Ketorolac 15 Mg/Ml Vial IVP 03/30/21 11:08 15 mg Q6HR PRN Administration PAIN Metoprolol Succinate 50 mg 03/24/21 21:00 03/25/21 20:19 Metoprolol Succinate 50 Mg Tablet PO 50 mg QPM RADHA Administration Metoprolol Tartrate 5 mg 03/24/21 07:59 03/25/21 15:57 Metoprolol 5 Mg/5 Ml Vial IVP 5 mg Q6H PRN Administration Tachycardia Mirtazapine 15 mg 03/24/21 21:00 03/25/21 20:20 Mirtazapine 15 Mg Tablet PO 15 mg QPM RADHA Administration Morphine Sulfate 2 mg 03/23/21 02:00 03/25/21 04:25 Morphine 2 Mg/Ml Carpuject IVP 2 mg Q2HR PRN Administration Pain 8 to 10 Multivitamins/Minerals 1 tab 03/26/21 11:00 03/26/21 14:31 Multivitamin W/Minerals Tablet PO Not Given DAILYWM RADHA Oxycodone HCl 5 mg 03/23/21 02:00 03/26/21 09:47 Oxycodone 5 Mg Tablet PO 5 mg Q4HR PRN Administration Pain 5 to 7 Polyethylene Glycol 17 gm 03/26/21 09:00 03/26/21 09:50 Polyethylene Glycol 3350 17 Gm Packet PO 17 gm DAILY RADHA Administration Sodium Chloride 10 ml 03/23/21 02:00 03/25/21 19:11 Sodium Chloride Flush 0.9% 10 Ml Syringe IVP 10 ml PRN PRN Administration NEEDED PER PROVIDER ORDERS Sodium Chloride 10 ml 03/23/21 09:00 03/26/21 09:51 Sodium Chloride Flush 0.9% 10 Ml Syringe IVP 10 ml 0100,[id number],1700 RADHA Administration - Physical Exam Wound/Incisions: positive: Dressing dry and intact General Appearance: positive: No acute distress Neurologic/Psychiatric: negative: Other (She is alert, arouses but does not communicate much. She just wants to rest.) Impression/Plan - Problem List Problem List: Status post open reduction internal fixation for displaced basilar femoral neck fracture right hip Plan it is very important for her to lease get up into a chair. She is going to be difficult to mobilize because of weakness, debility of age and hip fracture. Fortunately she is not complaining of pain to the right hip. She should least be up in a chair twice daily. She can resume her Eliquis which is helped for both her atrial fibrillation and deep venous thrombosis prophylaxis.
--- NOTE | 2021-03-26 15:25 | PROVIDER PROGRESS NOTE ---
Assessment/Plan - Problem List (1) Intertrochanteric fracture of right hip Qualifiers: Encounter type: initial encounter Fracture type: closed Fracture alignment: displaced Qualified Code(s): S72.141A - Displaced intertrochanteric fracture of right femur, initial encounter for closed fracture Assessment/Plan: 715 S/p of right hip repair on day 1. We will continue pain control, continue physical therapist and occupational therapist for patient, continue use Eliquis for patient for DVT prophylaxis and chronic a fibrillation. 714, status post of right hip repair on today. We will have prophylaxis antibiotics for 2 back of Ancef, We will start with patient home medication Eliquis as DVT prophylaxis, We will continue pain control but hold opiates since patient has respiratory failure with hypoxia, We will continue physical therapist and occupational therapist consult, Consult with social work for discharge planning (2) Respiratory failure with hypoxia Assessment/Plan: 03/26, Improved, 95% saturation on 1 L oxygen. Patient has a history of COPD, Continue albuterol and duoneb treatment, Continue supplemental oxygen as needed 03/25 Patient needed 5 L of oxygen by CT now after status post of right hip repair on today, Patient also show tachycardia. Patient did not show respiratory distress. pt Has history of A fibrillation with RVR . Patient also has history COPD, pulmonary hypertension. We will check with chest x-ray, will check hemoglobin since patient status post of surgery with possible significant loss of blood, We will start with gentle intravenous IV fluids. Closely monitor patient with vital signs and laboratory tech. We will continue Treated for COPD, Supplemental oxygen as needed. Metoprolol intravenous as needed to control patient A fibrillation with RVR (3) Atrial fibrillation with RVR Conclusion/Plan: 03-26 Improved, will continue home medication Cardizem and Metoprolol, continue telemetry, Continue Eliquis 03-25 We will do EKG, continue metoprolol intravenous as needed to control tachycardia and atrial fibrillation with RVR. We will check troponin as well,Since patient blood pressure slightly drop SBP 91. Rate is controlled After resume patient home Cardizem and metoprolol. She is on anticoagulation. Continue estimator patient (4) Osteoporosis Conclusion/Plan: Start calcium, vitamin D. After surgery Reclast injection for the year. (5) Unintentional weight loss Conclusion/Plan: She has no B symptoms. She is not depressed. She states that she is not a failure to thrive. She does not know why she lost her appetite. But it slowly starting to come back and she hopes to regain her weight. (6) Abnormal urinalysis Conclusion/Plan: She does not have urgency, frequency, dysuria. Many squamous cells in the specimen. it is likely contamination. She does not have a fever or an elevated white cell count. no antibiotics at this time. (7)COPD She Patient has a history of COPD, we will add albuterol no DuoNeb as needed, supplemental oxygen as needed (8)pulmonary hypertension her Echo show patient had a 69 mmHG RVSP, Pulmonary hypertension. Patient may follow-up cable operator as outpatient (9)atrial septal defect She Echo show for foramen ovale With atrium septal defense. 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 EKG show A. fib. We will continue metoprolol, and Eliquis, Vital signs and laboratory closely monitor patient - Current Meds Current Meds: Current Medications Generic Name Dose Route Start Last Admin Trade Name Freq PRN Reason Stop Dose Admin Acetaminophen 650 mg 03/23/21 02:00 03/23/21 02:50 Acetaminophen 325 Mg Tablet PO 650 mg Q4HR PRN Administration Pain 1 to 4 Albuterol 2.5 mg 03/24/21 06:56 03/24/21 19:13 Albuterol Neb 2.5 Mg/3 Ml INH 2.5 mg RTQ4H PRN Administration Wheezing Apixaban 2.5 mg 03/25/21 21:00 03/26/21 09:50 Apixaban 2.5 Mg Tablet PO 2.5 mg BID RADHA Administration Calcium Carbonate/Glycine 500 mg 03/24/21 11:00 03/26/21 09:50 Calcium Carbonate Chew 500 Mg Tablet PO 500 mg BID RADHA Administration Cholecalciferol 50 mcg 03/24/21 11:00 03/26/21 09:50 Cholecalciferol 25 Mcg Tablet PO 50 mcg DAILY RADHA Administration Clonazepam 0.25 mg 03/24/21 09:00 03/26/21 09:50 Clonazepam 0.5 Mg Tablet PO 0.25 mg BID RADHA Administration Diltiazem HCl 120 mg 03/24/21 09:00 03/26/21 09:50 Diltiazem Cd 120 Mg Capsule PO 120 mg DAILY RADHA Administration Sodium Chloride 1,000 mls @ 75 mls/hr 03/26/21 09:00 03/26/21 09:51 Normal Saline 0.9% IV 03/26/21 22:19 75 mls/hr .[id number] RADHA Administration Ketorolac Tromethamine 15 mg 03/25/21 11:09 03/26/21 06:00 Ketorolac 15 Mg/Ml Vial IVP 03/30/21 11:08 15 mg Q6HR PRN Administration PAIN Metoprolol Succinate 50 mg 03/24/21 21:00 03/25/21 20:19 Metoprolol Succinate 50 Mg Tablet PO 50 mg QPM RADHA Administration Metoprolol Tartrate 5 mg 03/24/21 07:59 03/25/21 15:57 Metoprolol 5 Mg/5 Ml Vial IVP 5 mg Q6H PRN Administration Tachycardia Mirtazapine 15 mg 03/24/21 21:00 03/25/21 20:20 Mirtazapine 15 Mg Tablet PO 15 mg QPM RADHA Administration Morphine Sulfate 2 mg 03/23/21 02:00 03/25/21 04:25 Morphine 2 Mg/Ml Carpuject IVP 2 mg Q2HR PRN Administration Pain 8 to 10 Multivitamins/Minerals 1 tab 03/26/21 11:00 03/26/21 14:31 Multivitamin W/Minerals Tablet PO Not Given DAILYWM [facility] Oxycodone HCl 5 mg 03/23/21 02:00 03/26/21 09:47 Oxycodone 5 Mg Tablet PO 5 mg Q4HR PRN Administration Pain 5 to 7 Polyethylene Glycol 17 gm 03/26/21 09:00 03/26/21 09:50 Polyethylene Glycol 3350 17 Gm Packet PO 17 gm DAILY RADHA Administration Sodium Chloride 10 ml 03/23/21 02:00 03/25/21 19:11 Sodium Chloride Flush 0.9% 10 Ml Syringe IVP 10 ml PRN PRN Administration NEEDED PER PROVIDER ORDERS Sodium Chloride 10 ml 03/23/21 09:00 03/26/21 09:51 Sodium Chloride Flush 0.9% 10 Ml Syringe IVP 10 ml 0100,0900,1700 [facility] Administration - Lab Result Fish Bone Diagrams: 03/26/21 06:24 03/26/21 06:24 - Additional Planning My Orders: My Active Orders 03/25/21 15:29 Telemetry- [RC] Q4HR 03/25/21 21:00 Apixaban [Eliquis] 2.5 mg PO BID 03/26/21 09:00 Sodium Chloride 0.9% [Normal Saline 0.9%] 1,000 ml IV 75 mls/hr polyethylene glycoL 3350 [Miralax] 17 gm PO DAILY 03/26/21 11:00 Multivitamin W/Minerals [Theragran M] 1 tab PO DAILYWM 03/26/21 Lunch Soft Mechanical Diet [DIET] 03/26/21 15:14 Out of bed 3+ hours today [RC] TID 03/27/21 05:00 BMP - BASIC METABOLIC PANEL [CHEM] DAILYLAB CBC - COMP BLD CT W/AUTO DIFF [HEME] DAILYLAB 03/28/21 05:00 BMP - BASIC METABOLIC PANEL [CHEM] DAILYLAB CBC - COMP BLD CT W/AUTO DIFF [HEME] DAILYLAB 03/29/21 05:00 BMP - BASIC METABOLIC PANEL [CHEM] DAILYLAB CBC - COMP BLD CT W/AUTO DIFF [HEME] DAILYLAB Subjective - Subjective Patient Reports: Feeling Better Objective Vital Signs: Vital Signs - 24 hr 03/25/21 03/25/21 03/25/21 15:54 15:57 16:27 Temperature 36.1 C L Heart Rate [ Activity] Heart Rate [ 130 H Brachial] Heart Rate [ Monitoring electrodes] Heart Rate [ Radial] Heart Rate [ Sitting] Heart Rate [ Supine] Respiratory 20 Rate Blood Pressure 119/88 H 110/78 Blood Pressure [Activity] Blood Pressure [Left Brachial artery] Blood Pressure 119/88 H [Right Brachial artery] Blood Pressure [Sitting] Blood Pressure [Supine] O2 Saturation 100 03/25/21 03/25/21 03/25/21 17:00 17:53 19:15 Temperature Heart Rate [ Activity] Heart Rate [ 119 H Brachial] Heart Rate [ Monitoring electrodes] Heart Rate [ Radial] Heart Rate [ Sitting] Heart Rate [ Supine] Respiratory 19 20 Rate Blood Pressure 116/63 Blood Pressure [Activity] Blood Pressure [Left Brachial artery] Blood Pressure 112/72 [Right Brachial artery] Blood Pressure [Sitting] Blood Pressure [Supine] O2 Saturation 96 97 03/25/21 03/25/21 03/25/21 20:00 20:18 23:50 Temperature 36.1 C L Heart Rate [ Activity] Heart Rate [ 115 H 63 Brachial] Heart Rate [ Monitoring electrodes] Heart Rate [ Radial] Heart Rate [ Sitting] Heart Rate [ Supine] Respiratory 19 Rate Blood Pressure Blood Pressure [Activity] Blood Pressure [Left Brachial artery] Blood Pressure 114/56 L 89/37 L [Right Brachial artery] Blood Pressure [Sitting] Blood Pressure [Supine] O2 Saturation 90 L 93 03/26/21 03/26/21 03/26/21 01:00 04:00 05:18 Temperature 36.2 C L 36.5 C Heart Rate [ Activity] Heart Rate [ 85 Brachial] Heart Rate [ Monitoring electrodes] Heart Rate [ 70 Radial] Heart Rate [ Sitting] Heart Rate [ Supine] Respiratory 18 18 Rate Blood Pressure Blood Pressure [Activity] Blood Pressure 105/48 L [Left Brachial artery] Blood Pressure 112/58 L [Right Brachial artery] Blood Pressure [Sitting] Blood Pressure [Supine] O2 Saturation 93 90 L 97 03/26/21 03/26/21 03/26/21 06:18 08:28 10:45 Temperature 36.3 C L Heart Rate [ 61 Activity] Heart Rate [ 96 Brachial] Heart Rate [ Monitoring electrodes] Heart Rate [ Radial] Heart Rate [ 120 H Sitting] Heart Rate [ 88 Supine] Respiratory 16 Rate Blood Pressure Blood Pressure 127/65 [Activity] Blood Pressure [Left Brachial artery] Blood Pressure 108/61 [Right Brachial artery] Blood Pressure 96/77 [Sitting] Blood Pressure 101/52 L [Supine] O2 Saturation 97 95 03/26/21 13:00 Temperature 36.7 C Heart Rate [ Activity] Heart Rate [ Brachial] Heart Rate [ 102 H Monitoring electrodes] Heart Rate [ Radial] Heart Rate [ Sitting] Heart Rate [ Supine] Respiratory 18 Rate Blood Pressure Blood Pressure [Activity] Blood Pressure [Left Brachial artery] Blood Pressure 115/53 L [Right Brachial artery] Blood Pressure [Sitting] Blood Pressure [Supine] O2 Saturation 87 L Oxygen O2 Source Nasal cannula I&O (Last 24 Hrs): Intake and Output Totals x24h 03/24/21 03/25/21 03/26/21 23:59 23:59 23:59 Intake Total 2894.66 1368.06 320 Output Total 900 725 300 Balance 1993.66 643.06 20 General: Alert, Oriented x3, Cooperative, No acute distress HEENT: Atraumatic Neck: Supple Lymphatic: no adenopathy Neuro: Alert, Non Focal, Oriented Times 3 Cardiovascular: Regular rate, Normal S1, Normal S2 Respiratory: Chest non-tender, No respiratory distress Abdomen: Normal bowel sounds, Soft Extremities: Normal pulses - Results Results: Laboratory Results WBC 10.0 x10^3/uL (4.8-10.8) 03/26/21 06:24 RBC 3.28 10^6/uL (4.20-5.40) L 03/26/21 06:24 Hgb 11.0 g/dL (12.0-16.0) L 03/26/21 06:24 Hct 34.4 % (37.0-47.0) L 03/26/21 06:24 MCV 104.9 fL (81.0-99.0) H 03/26/21 06:24 MCH 33.5 pg (27.0-31.0) H 03/26/21 06:24 MCHC 32.0 g/dL (32.0-36.0) 03/26/21 06:24 RDW 12.2 % (12.0-15.0) 03/26/21 06:24 Plt Count 118 10^3/uL (130-450) L 03/26/21 06:24 MPV 10.0 fL (7.9-10.8) 03/26/21 06:24 Neut # (Auto) 8.3 10^3/uL (1.5-6.6) H 03/26/21 06:24 Lymph # (Auto) 0.7 10^3/uL (1.5-3.5) L 03/26/21 06:24 [place] # (Auto) 1.0 10^3/uL (0.0-1.0) 03/26/21 06:24 Eos # (Auto) 0.0 10^3/uL (0.0-0.7) 03/26/21 06:24 Baso # (Auto) 0.0 10^3/uL (0.0-0.1) 03/26/21 06:24 Absolute Nucleated RBC 0.00 x10^3/uL 03/26/21 06:24 Nucleated RBC % 0.0 /100WBC 03/26/21 06:24 Sodium 135 mmol/L (135-145) 03/26/21 06:24 Potassium 4.7 mmol/L (3.5-5.0) 03/26/21 06:24 Chloride 92 mmol/L (101-111) L 03/26/21 06:24 Carbon Dioxide 32 mmol/L (21-32) 03/26/21 06:24 Anion Gap 11.0 (6-13) 03/26/21 06:24 BUN 22 mg/dL (6-20) H 03/26/21 06:24 Creatinine 1.1 mg/dL (0.4-1.0) H 03/26/21 06:24 Estimated GFR (MDRD) 47 (>89) L 03/26/21 06:24 Glucose 113 mg/dL (70-100) H 03/26/21 06:24 Calcium 8.0 mg/dL (8.5-10.3) L 03/26/21 06:24 Magnesium 1.9 mg/dL (1.7-2.8) 03/23/21 02:17 Total Bilirubin 0.9 mg/dL (0.2-1.0) 03/23/21 02:17 AST 21 IU/L (10-42) 03/23/21 02:17 ALT 19 IU/L (10-60) 03/23/21 02:17 Alkaline Phosphatase 26 IU/L (42-121) L 03/23/21 02:17 Total Creatine Kinase 50 IU/L (22-269) 03/24/21 08:07 Troponin I High Sens 65.7 ng/L (2.3-14.8) H* 03/26/21 06:24 Total Protein 6.7 g/dL (6.7-8.2) 03/23/21 02:17 Albumin 3.7 g/dL (3.2-5.5) 03/23/21 02:17 Globulin 3.0 g/dL (2.1-4.2) 03/23/21 02:17 Albumin/Globulin Ratio 1.2 (1.0-2.2) 03/23/21 02:17 Lipase 26 U/L (22-51) 03/23/21 02:17 Vitamin B12 106 pg/mL (180-914) L 03/23/21 02:17 Urine Color YELLOW 03/23/21 01:38 Urine Clarity SL. CLOUDY (CLEAR) 03/23/21 01:38 Urine pH 5.0 PH (5.0-7.5) 03/23/21 01:38 Ur Specific [place] >=1.030 (1.002-1.030) H 03/23/21 01:38 Urine Protein 30 mg/dL (NEGATIVE) H 03/23/21 01:38 Urine Glucose (UA) NEGATIVE mg/dL (NEGATIVE) 03/23/21 01:38 Urine Ketones NEGATIVE mg/dL (NEGATIVE) 03/23/21 01:38 Urine Occult Blood TRACE-INTA (NEGATIVE) 03/23/21 01:38 Urine Nitrite POSITIVE (NEGATIVE) H 03/23/21 01:38 Urine Bilirubin NEGATIVE (NEGATIVE) 03/23/21 01:38 Urine Urobilinogen 0.2 (NORMAL) E.U./dL (NORMAL) 03/23/21 01:38 Ur Leukocyte Esterase SMALL (NEGATIVE) H 03/23/21 01:38 Urine RBC 0-5 /HPF (0-5) 03/23/21 01:38 Urine WBC >25 /HPF (0-5) H 03/23/21 01:38 Ur Squamous Epith Cells MOD Squamous (<= Few) H 03/23/21 01:38 Urine Bacteria Many /HPF (None Seen) H 03/23/21 01:38 Ur Microscopic Review INDICATED 03/23/21 01:38 Urine Culture Comments NOT INDICATED 03/23/21 01:38 Nasal Adenovirus (PCR) NOT DETECTED 03/23/21 02:25 Nasal B. parapertussis DNA (PCR) NOT DETECTED 03/23/21 02:25 Nasal Coronavir 229E PCR NOT DETECTED 03/23/21 02:25 Nasal Coronavir HKU1 PCR NOT DETECTED 03/23/21 02:25 Nasal Coronavir NL63 PCR NOT DETECTED 03/23/21 02:25 Nasal Coronavir OC43 PCR NOT DETECTED 03/23/21 02:25 Nasal Enterovir/Rhinovir PCR NOT DETECTED 03/23/21 02:25 Nasal Influenza B PCR NOT DETECTED 03/23/21 02:25 Nasal Influenza A PCR NOT DETECTED 03/23/21 02:25 Nasal Parainfluen 1 PCR NOT DETECTED 03/23/21 02:25 Nasal Parainfluen 2 PCR NOT DETECTED 03/23/21 02:25 Nasal Parainfluen 3 PCR NOT DETECTED 03/23/21 02:25 Nasal Parainfluen 4 PCR NOT DETECTED 03/23/21 02:25 Nasal RSV (PCR) NOT DETECTED 03/23/21 02:25 Nasal B.pertussis DNA PCR NOT DETECTED 03/23/21 02:25 Nasal C.pneumoniae (PCR) NOT DETECTED 03/23/21 02:25 Rhett Human Metapneumo PCR NOT DETECTED 03/23/21 02:25 Nasal M.pneumoniae (PCR) NOT DETECTED 03/23/21 02:25 Nasal SARS-CoV-2 (PCR) NOT DETECTED 03/23/21 02:25 ABX Reporting Has patient been on IV antibiotics over the past 48 hours?: No Current Medications - Current Medications Current Medications: Active Medications Acetaminophen (Acetaminophen 325 Mg Tablet) 650 mg PO Q4HR PRN PRN Reason: Pain 1 to 4 Last Admin: 03/23/21 02:50 Dose: 650 mg Documented by: Albuterol (Albuterol Neb 2.5 Mg/3 Ml) 2.5 mg INH RTQ4H PRN PRN Reason: Wheezing Last Admin: 03/24/21 19:13 Dose: 2.5 mg Documented by: Albuterol/Ipratropium (Ipratropium/Albuterol 3 Ml Neb) 3 ml INH RTQID PRN PRN Reason: Shortness of Air/Wheezing Apixaban (Apixaban 2.5 Mg Tablet) 2.5 mg PO BID [facility] Last Admin: 03/26/21 09:50 Dose: 2.5 mg Documented by: Calcium Carbonate/Glycine (Calcium Carbonate Chew 500 Mg Tablet) 500 mg PO BID [facility] Last Admin: 03/26/21 09:50 Dose: 500 mg Documented by: Cholecalciferol (Cholecalciferol 25 Mcg Tablet) 50 mcg PO DAILY [facility] Last Admin: 03/26/21 09:50 Dose: 50 mcg Documented by: Clonazepam (Clonazepam 0.5 Mg Tablet) 0.25 mg PO BID [facility] Last Admin: 03/26/21 09:50 Dose: 0.25 mg Documented by: Diltiazem HCl (Diltiazem Cd 120 Mg Capsule) 120 mg PO DAILY [facility] Last Admin: 03/26/21 09:50 Dose: 120 mg Documented by: Sodium Chloride (Normal Saline 0.9%) 1,000 mls @ 75 mls/hr IV .[id number] [facility] Stop: 03/26/21 22:19 Last Admin: 03/26/21 09:51 Dose: 75 mls/hr Documented by: Ketorolac Tromethamine (Ketorolac 15 Mg/Ml Vial) 15 mg IVP Q6HR PRN PRN Reason: PAIN Stop: 03/30/21 11:08 Last Admin: 03/26/21 06:00 Dose: 15 mg Documented by: Metoprolol Succinate (Metoprolol Succinate 50 Mg Tablet) 50 mg PO QPM [facility] Last Admin: 03/25/21 20:19 Dose: 50 mg Documented by: Metoprolol Tartrate (Metoprolol 5 Mg/5 Ml Vial) 5 mg IVP Q6H PRN PRN Reason: Tachycardia Last Admin: 03/25/21 15:57 Dose: 5 mg Documented by: Mirtazapine (Mirtazapine 15 Mg Tablet) 15 mg PO QPM [facility] Last Admin: 03/25/21 20:20 Dose: 15 mg Documented by: Morphine Sulfate (Morphine 2 Mg/Ml Carpuject) 2 mg IVP Q2HR PRN PRN Reason: Pain 8 to 10 Last Admin: 03/25/21 04:25 Dose: 2 mg Documented by: Multivitamins/Minerals (Multivitamin W/Minerals Tablet) 1 tab PO DAILYWM [facility] Last Admin: 03/26/21 14:31 Dose: Not Given Documented by: Ondansetron HCl (Ondansetron Odt 4 Mg Tablet) 4 mg TL Q6HR PRN PRN Reason: Nausea / Vomiting Ondansetron HCl (Ondansetron 4 Mg/2 Ml Vial) 4 mg IVP Q6HR PRN PRN Reason: Nausea / Vomiting Oxycodone HCl (Oxycodone 5 Mg Tablet) 5 mg PO Q4HR PRN PRN Reason: Pain 5 to 7 Last Admin: 03/26/21 09:47 Dose: 5 mg Documented by: Polyethylene Glycol (Polyethylene Glycol 3350 17 Gm Packet) 17 gm PO DAILY [facility] Last Admin: 03/26/21 09:50 Dose: 17 gm Documented by: Sodium Chloride (Sodium Chloride Flush 0.9% 10 Ml Syringe) 10 ml IVP PRN PRN PRN Reason: NEEDED PER PROVIDER ORDERS Last Admin: 03/25/21 19:11 Dose: 10 ml Documented by: Sodium Chloride (Sodium Chloride Flush 0.9% 10 Ml Syringe) 10 ml IVP 0100,0900,1700 RADHA Last Admin: 03/26/21 09:51 Dose: 10 ml Documented by: Diltiazem HCl [Cartia Xt] 120 mg PO DAILY 10/30/14 Albuterol Sulfate [Albuterol Sulfate Hfa] 2 puffs INH DAILY PRN 07/09/19 Apixaban [Eliquis] 2.5 mg PO BID 03/23/21 Memantine HCl [Namenda] 10 mg PO BID 03/23/21 Metoprolol Succinate [Toprol Xl] 50 mg PO QPM 03/23/21 Mirtazapine 15 mg PO QPM 03/23/21 clonazePAM [Clonazepam] 0.5 tab PO BID 03/23/21
[2021-03-26] MEDS: METOPROLOL SUCCINATE 50 MG TABLET PO SCH (20:26)
[2021-03-26] MEDS: MIRTAZAPINE 15 MG TABLET PO SCH (20:26)
[2021-03-26] MEDS: SODIUM CHLORIDE FLUSH 0.9% 10 ML SYRINGE IVP PRN (22:06)
[2021-03-27] MEDS: ACETAMINOPHEN 325 MG TABLET PO PRN ×3 (02:14→21:32)
[2021-03-27] MEDS: METOPROLOL 5 MG/5 ML VIAL IVP PRN (02:18)
[2021-03-27] MEDS: KETOROLAC 15 MG/ML VIAL IVP PRN ×3 (05:56→18:06)
[2021-03-27] MEDS: SODIUM CHLORIDE FLUSH 0.9% 10 ML SYRINGE IVP PRN ×3 (05:56→18:07)
[2021-03-27 05:57] LABS: BASOPHILS % (AUTO) 0.5 %; EOSINOPHILS # (AUTO) 0.1 10^3/uL (0.0-0.7); EOSINOPHILS % (AUTO) 1.4 %; HCT - HEMATOCRIT 31.3 % (37.0-47.0); LYMPHOCYTES # (AUTO) 0.9 10^3/uL (1.5-3.5); LYMPHOCYTES % (AUTO) 11.8 %; MEAN CORPUSCULAR HEMOGLOBIN 33.3 pg (27.0-31.0); MEAN CORPUSCULAR HGB CONC 31.9 g/dL (32.0-36.0); MEAN CORPUSCULAR VOLUME 104.3 fL (81.0-99.0); MEAN PLATELET VOLUME 10.4 fL (7.9-10.8); MONOCYTES # (AUTO) 0.8 10^3/uL (0.0-1.0); MONOCYTES % (AUTO) 10.9 %; NEUTROPHILS # (AUTO) 5.8 10^3/uL (1.5-6.6); PLT - PLATELET COUNT 117 10^3/uL (130-450); RED CELL DISTRIBUTION WIDTH 12.5 % (12.0-15.0); WHITE BLOOD COUNT 7.7 x10^3/uL (4.8-10.8)
[2021-03-27 06:08] LABS: CALCIUM 8.5 mg/dL (8.5-10.3); POTASSIUM 3.8 mmol/L (3.5-5.0)
[2021-03-27 08:34] LABS: CHOL/HDL RATIO 3.4 (<4.4); CHOLESTEROL 128 mg/dL; HDL CHOLESTEROL 38 mg/dL; LDL CHOLESTEROL,CALCULATED 69 mg/dL; LDL/HDL RATIO 1.8 (<4.4); TRIGLYCERIDES 103 mg/dL; VLDL CHOLESTEROL 21 mg/dL
[2021-03-27] MEDS: MULTIVITAMIN W/MINERALS TABLET PO SCH (08:45)
[2021-03-27] MEDS: CHOLECALCIFEROL 25 MCG TABLET PO SCH (08:45)
[2021-03-27] MEDS: APIXABAN 2.5 MG TABLET PO SCH ×2 (08:46→21:32)
[2021-03-27] MEDS: DOCUSATE SODIUM 250 MG CAPSULE PO SCH (08:46)
[2021-03-27] MEDS: diltiaZEM CD 120 MG CAPSULE PO SCH (08:47)
[2021-03-27] MEDS: CALCIUM CARBONATE CHEW 500 MG TABLET PO SCH ×2 (08:47→21:32)
[2021-03-27] MEDS: polyethylene glycoL 3350 17 GM PACKET PO SCH (08:47)
[2021-03-27] MEDS: MEMANTINE 5 MG TABLET PO SCH ×2 (10:45→21:32)
--- NOTE | 2021-03-27 12:38 | PROVIDER PROGRESS NOTE ---
Subjective - General Admit Date: 03/23/21 Procedure Date: 03/25/21 Post Op Days: 2 Procedure Performed: Open reduction internal fixation basilar femoral neck fracture right hip wi - Review of Systems Wound/Incisions: positive: Dressing dry and intact General: positive: Weakness (more alert today). negative: Other (Denies pain to right hip) Musculoskeletal: positive: Other (generalized pain; right hip pain seems controlled and no worse than other extremities) Objective - Patient Data Vital Signs: Vital Signs x48h Temp Pulse Pulse Resp BP Pulse Ox 03/27/21 08:40 36.8 C 105 H 18 137/77 H 94 03/27/21 04:58 36.7 C 100 129/70 94 Weight: Weight 03/25/21 03/26/21 03/27/21 23:59 23:59 23:59 Weight (kg) 42.5 kg Intake & Output: Intake and Output Totals x24h 03/25/21 03/26/21 03/27/21 23:59 23:59 23:59 Intake Total 1368.06 1127.8 220 Output Total 725 425 150 Balance 643.06 702.8 70 - Lab Results Lab Results: 03/27/21 05:34 03/27/21 05:34 Other Lab Results: Lab Results x24hrs 03/27/21 03/27/21 03/27/21 Range/Units 11:04 05:34 05:34 WBC (4.8-10.8) x10^3/uL RBC (4.20-5.40) 10^6/uL Hgb (12.0-16.0) g/dL Hct (37.0-47.0) % MCV (81.0-99.0) fL MCH (27.0-31.0) pg MCHC (32.0-36.0) g/dL RDW (12.0-15.0) % Plt Count (130-450) 10^3/uL MPV (7.9-10.8) fL Neut # (Auto) (1.5-6.6) 10^3/uL Lymph # (Auto) (1.5-3.5) 10^3/uL [place] # (Auto) (0.0-1.0) 10^3/uL Eos # (Auto) (0.0-0.7) 10^3/uL Baso # (Auto) (0.0-0.1) 10^3/uL Absolute Nucleated RBC x10^3/uL Nucleated RBC % /100WBC Sodium (135-145) mmol/L Potassium (3.5-5.0) mmol/L Chloride (101-111) mmol/L Carbon Dioxide (21-32) mmol/L Anion Gap (6-13) BUN (6-20) mg/dL Creatinine (0.4-1.0) mg/dL Estimated GFR (MDRD) (>89) Glucose (70-100) mg/dL Calcium (8.5-10.3) mg/dL Troponin I High Sens 91.8 H* 120.8 H* (2.3-14.8) ng/L Triglycerides 103 ( - 149) mg/dL Cholesterol 128 ( - 199) mg/dL LDL Cholesterol, Calc 69 ( - 129) mg/dL VLDL Cholesterol 21 mg/dL HDL Cholesterol 38 L (60 - ) mg/dL LDL/HDL Ratio 1.8 (<4.4) Cholesterol/HDL Ratio 3.4 (<4.4) 03/27/21 03/27/21 Range/Units 05:34 05:34 WBC 7.7 (4.8-10.8) x10^3/uL RBC 3.00 L (4.20-5.40) 10^6/uL Hgb 10.0 L (12.0-16.0) g/dL Hct 31.3 L (37.0-47.0) % MCV 104.3 H (81.0-99.0) fL MCH 33.3 H (27.0-31.0) pg MCHC 31.9 L (32.0-36.0) g/dL RDW 12.5 (12.0-15.0) % Plt Count 117 L (130-450) 10^3/uL MPV 10.4 (7.9-10.8) fL Neut # (Auto) 5.8 (1.5-6.6) 10^3/uL Lymph # (Auto) 0.9 L (1.5-3.5) 10^3/uL [place] # (Auto) 0.8 (0.0-1.0) 10^3/uL Eos # (Auto) 0.1 (0.0-0.7) 10^3/uL Baso # (Auto) 0.0 (0.0-0.1) 10^3/uL Absolute Nucleated RBC 0.00 x10^3/uL Nucleated RBC % 0.0 /100WBC Sodium 139 (135-145) mmol/L Potassium 3.8 (3.5-5.0) mmol/L Chloride 98 L (101-111) mmol/L Carbon Dioxide 30 (21-32) mmol/L Anion Gap 11.0 (6-13) BUN 35 H (6-20) mg/dL Creatinine 1.0 (0.4-1.0) mg/dL Estimated GFR (MDRD) 53 L (>89) Glucose 94 (70-100) mg/dL Calcium 8.5 (8.5-10.3) mg/dL Troponin I High Sens (2.3-14.8) ng/L Triglycerides ( - 149) mg/dL Cholesterol ( - 199) mg/dL LDL Cholesterol, Calc ( - 129) mg/dL VLDL Cholesterol mg/dL HDL Cholesterol (60 - ) mg/dL LDL/HDL Ratio (<4.4) Cholesterol/HDL Ratio (<4.4) - Current Medications Current Medications: Current Medications Generic Name Dose Route Start Last Admin Trade Name Freq PRN Reason Stop Dose Admin Acetaminophen 650 mg 03/23/21 02:00 03/27/21 10:44 Acetaminophen 325 Mg Tablet PO 650 mg Q4HR PRN Administration Pain 1 to 4 Albuterol 2.5 mg 03/24/21 06:56 03/24/21 19:13 Albuterol Neb 2.5 Mg/3 Ml INH 2.5 mg RTQ4H PRN Administration Wheezing Apixaban 2.5 mg 03/25/21 21:00 03/27/21 08:46 Apixaban 2.5 Mg Tablet PO 2.5 mg BID RAD[facility] Administration Calcium Carbonate/Glycine 500 mg 03/24/21 11:00 03/27/21 08:47 Calcium Carbonate Chew 500 Mg Tablet PO 500 mg BID [facility] Administration Cholecalciferol 50 mcg 03/24/21 11:00 03/27/21 08:45 Cholecalciferol 25 Mcg Tablet PO 50 mcg DAILY [facility] Administration Diltiazem HCl 120 mg 03/24/21 09:00 03/27/21 08:47 Diltiazem Cd 120 Mg Capsule PO 120 mg DAILY [facility] Administration Docusate Sodium 250 - 500 mg 03/27/21 09:00 03/27/21 08:46 Docusate Sodium 250 Mg Capsule PO 250 mg DAILY [facility] Administration Ketorolac Tromethamine 15 mg 03/25/21 11:09 03/27/21 12:05 Ketorolac 15 Mg/Ml Vial IVP 03/30/21 11:08 15 mg Q6HR PRN Administration PAIN Memantine 10 mg 03/27/21 10:00 03/27/21 10:45 Memantine 5 Mg Tablet PO 10 mg BID [facility] Administration Metoprolol Succinate 50 mg 03/24/21 21:00 03/26/21 20:26 Metoprolol Succinate 50 Mg Tablet PO 50 mg QPM [facility] Administration Metoprolol Tartrate 5 mg 03/24/21 07:59 03/27/21 02:18 Metoprolol 5 Mg/5 Ml Vial IVP 5 mg Q6H PRN Administration Tachycardia Mirtazapine 15 mg 03/24/21 21:00 03/26/21 20:26 Mirtazapine 15 Mg Tablet PO 15 mg QPM [facility] Administration Morphine Sulfate 2 mg 03/23/21 02:00 03/25/21 04:25 Morphine 2 Mg/Ml Carpuject IVP 2 mg Q2HR PRN Administration Pain 8 to 10 Multivitamins/Minerals 1 tab 03/26/21 11:00 03/27/21 08:45 Multivitamin W/Minerals Tablet PO 1 tab DAILYWM RADHA Administration Oxycodone HCl 5 mg 03/23/21 02:00 03/26/21 09:47 Oxycodone 5 Mg Tablet PO 5 mg Q4HR PRN Administration Pain 5 to 7 Polyethylene Glycol 17 gm 03/26/21 09:00 03/27/21 08:47 Polyethylene Glycol 3350 17 Gm Packet PO 17 gm DAILY RADHA Administration Sodium Chloride 10 ml 03/23/21 02:00 03/27/21 12:05 Sodium Chloride Flush 0.9% 10 Ml Syringe IVP 10 ml PRN PRN Administration NEEDED PER PROVIDER ORDERS Sodium Chloride 10 ml 03/23/21 09:00 03/26/21 23:37 Sodium Chloride Flush 0.9% 10 Ml Syringe IVP 10 ml 0100,0900,1700 RADHA Administration - Physical Exam Wound/Incisions: positive: Dressing dry and intact General Appearance: positive: Alert, Other (comfortable sitting) Extremities: positive: Other (no deformity, no thigh hematoma) Neurologic/Psychiatric: positive: Motor nml, Sensation nml Impression/Plan - Problem List Problem List: Post op ORIF right hip fracture She has generalized weakness, decreased BMI, sarcopenia, osteopenia, decreased nutrition which is chronic Needs to be mobilized; chair sitting and ambulation with PT/OT She is much more alert today and seems to be improving.
--- NOTE | 2021-03-27 12:46 | PROVIDER PROGRESS NOTE ---
Assessment/Plan - Problem List (1) Intertrochanteric fracture of right hip Qualifiers: Encounter type: initial encounter Fracture type: closed Fracture alignment: displaced Qualified Code(s): S72.141A - Displaced intertrochanteric fracture of right femur, initial encounter for closed fracture Assessment/Plan: 03-27 Improved. Patient cooperated with PT and OT. pt is out of bed and sitting at the chair, pt ate 25% of her diet. Continue pain control, Continue Eliquis for DVT prophylaxis. 715 S/p of right hip repair on day 1. We will continue pain control, continue physical therapist and occupational therapist for patient, continue use Eliquis for patient for DVT prophylaxis and chronic a fibrillation. 714, status post of right hip repair on today. We will have prophylaxis antibiotics for 2 back of Ancef, We will start with patient home medication Eliquis as DVT prophylaxis, We will continue pain control but hold opiates since patient has respiratory failure with hypoxia, We will continue physical therapist and occupational therapist consult, Consult with social work for disc harge planning (2) Respiratory failure with hypoxia Assessment/Plan: 03/27, Patient has no acute respiratory distress, Patient is comfortable sitting in the chair and cooperative work with PT and OT. pt is Unlikely of COPD exacerbation. Continue albuterol and duoneb treatment, Continue supplemental oxygen as needed 03/26, Improved, 95% saturation on 1 L oxygen. Patient has a history of COPD, Continue albuterol and duoneb treatment, Continue supplemental oxygen as needed 03/25 Patient needed 5 L of oxygen by NC now after status post of right hip repair on today, Patient also show tachycardia. Patient did not show respiratory distress. pt Has history of A fibrillation with RVR . Patient also has history COPD, pulmonary hypertension. We will check with chest x-ray, will check hemoglobin since patient status post of surgery with possible significant loss of blood, We will start with gentle intravenous IV fluids. 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 We will continue Treated for COPD, Supplemental oxygen as needed. 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 We will check troponin as well, Since patient blood pressure slightly drop SBP 91. Rate is controlled After resume patient home Cardizem and metoprolol. She is on anticoagulation. Continue element winding machine tender patient (4) Osteoporosis Conclusion/Plan: Start calcium, vitamin D. After surgery Reclast injection for the year. (5) Unintentional weight loss Conclusion/Plan: She has no B symptoms. She is not depressed. She states that she is not a fa ilure to thrive. She does not know why she lost her appetite. But it slowly starting to come back and she hopes to regain her weight. (6)COPD She Patient has a history of COPD, we will add albuterol no DuoNeb as needed, supplemental oxygen as needed (7)pulmonary hypertension her Echo show patient had a 69 mmHG RVSP, Pulmonary hypertension. Patient may follow-up slunk skin curer as outpatient (8)atrial septal defect She Echo show for foramen ovale With atrium septal defense. Patient may follow- up photographer helper To continue manage (9)pre-operation assessment She had 0.9% Estimated rate of myocardial infarction, pulmonary edema, ventricular fibrillation, cardiac collapse or complete heart block, low risk (10)elevated troponin, 03/27 Patient had mild elevated troponin then troponin level was treaded down. Patient denies chest pain. Patient is hemodynamic stable. EKG show A fibrillation without ST Segment changing, no evidence to support Myocardial ischemia. Recently echo show normal range EF. It is likely demand Ischemia. We will continue home medication Eliquis, metoprolol,Continue element winding machine tender patient. It is likely demand Ischemia, Slightly elevated troponin then become flat. EKG show A. fib. We will continue metoprolol, and Eliquis, Vital signs and laboratory closely monitor patient - Current Meds Current Meds: Current Medications Generic Name Dose Route Start Last Admin Trade Name Freq PRN Reason Stop Dose Admin Acetaminophen 650 mg 03/23/21 02:00 03/27/21 10:44 Acetaminophen 325 Mg Tablet PO 650 mg Q4HR PRN Administration Pain 1 to 4 Albuterol 2.5 mg 03/24/21 06:56 03/24/21 19:13 Albuterol Neb 2.5 Mg/3 Ml INH 2.5 mg RTQ4H PRN Administration Wheezing Apixaban 2.5 mg 03/25/21 21:00 03/27/21 08:46 Apixaban 2.5 Mg Tablet PO 2.5 mg BID RADHA Administration Calcium Carbonate/Glycine 500 mg 03/24/21 11:00 03/27/21 08:47 Calcium Carbonate Chew 500 Mg Tablet PO 500 mg BID RADHA Administration Cholecalciferol 50 mcg 03/24/21 11:00 03/27/21 08:45 Cholecalciferol 25 Mcg Tablet PO 50 mcg DAILY RADHA Administration Diltiazem HCl 120 mg 03/24/21 09:00 03/27/21 08:47 Diltiazem Cd 120 Mg Capsule PO 120 mg DAILY RADHA Administration Docusate Sodium 250 - 500 mg 03/27/21 09:00 03/27/21 08:46 Docusate Sodium 250 Mg Capsule PO 250 mg DAILY RADHA Administration Ketorolac Tromethamine 15 mg 03/25/21 11:09 03/27/21 12:05 Ketorolac 15 Mg/Ml Vial IVP 03/30/21 11:08 15 mg Q6HR PRN Administration PAIN Memantine 10 mg 03/27/21 10:00 03/27/21 10:45 Memantine 5 Mg Tablet PO 10 mg BID RADHA Administration Metoprolol Succinate 50 mg 03/24/21 21:00 03/26/21 20:26 Metoprolol Succinate 50 Mg Tablet PO 50 mg QPM RADHA Administration Metoprolol Tartrate 5 mg 03/24/21 07:59 03/27/21 02:18 Metoprolol 5 Mg/5 Ml Vial IVP 5 mg Q6H PRN Administration Tachycardia Mirtazapine 15 mg 03/24/21 21:00 03/26/21 20:26 Mirtazapine 15 Mg Tablet PO 15 mg QPM RADHA Administration Morphine Sulfate 2 mg 03/23/21 02:00 03/25/21 04:25 Morphine 2 Mg/Ml Carpuject IVP 2 mg Q2HR PRN Administration Pain 8 to 10 Multivitamins/Minerals 1 tab 03/26/21 11:00 03/27/21 08:45 Multivitamin W/Minerals Tablet PO 1 tab DAILYWM RADHA Administration Oxycodone HCl 5 mg 03/23/21 02:00 03/26/21 09:47 Oxycodone 5 Mg Tablet PO 5 mg Q4HR PRN Administration Pain 5 to 7 Polyethylene Glycol 17 gm 03/26/21 09:00 03/27/21 08:47 Polyethylene Glycol 3350 17 Gm Packet PO 17 gm DAILY RADHA Administration Sodium Chloride 10 ml 03/23/21 02:00 03/27/21 12:05 Sodium Chloride Flush 0.9% 10 Ml Syringe IVP 10 ml PRN PRN Administration NEEDED PER PROVIDER ORDERS Sodium Chloride 10 ml 03/23/21 09:00 03/26/21 23:37 Sodium Chloride Flush 0.9% 10 Ml Syringe IVP 10 ml 0100,0900,1700 RADHA Administration - Lab Result Fish Bone Diagrams: 03/27/21 05:34 03/27/21 05:34 - Additional Planning My Orders: My Active Orders 03/26/21 15:14 Out of bed 3+ hours today [RC] TID 03/27/21 09:01 EKG - Electrocardiogram [RC] .ONCE 03/27/21 10:00 Memantine [Namenda] 10 mg PO BID 03/28/21 05:00 BMP - BASIC METABOLIC PANEL [CHEM] DAILYLAB CBC - COMP BLD CT W/AUTO DIFF [HEME] DAILYLAB 03/29/21 05:00 BMP - BASIC METABOLIC PANEL [CHEM] DAILYLAB CBC - COMP BLD CT W/AUTO DIFF [HEME] DAILYLAB Subjective - Subjective Patient Reports: Feeling Better Objective Vital Signs: Vital Signs - 24 hr 03/26/21 03/26/21 03/26/21 13:00 17:00 20:22 Temperature 36.7 C 36.3 C L 36.7 C Heart Rate [ Brachial] Heart Rate [ 102 H 101 H 101 H Monitoring electrodes] Respiratory 18 20 22 Rate Blood Pressure Blood Pressure 115/53 L 102/52 L 126/71 [Right Brachial artery] O2 Saturation 87 L 94 97 03/26/21 03/26/21 03/27/21 20:42 23:56 02:18 Temperature 36.5 C Heart Rate [ 97 Brachial] Heart Rate [ Monitoring electrodes] Respiratory 20 Rate Blood Pressure 120/77 Blood Pressure 109/88 H [Right Brachial artery] O2 Saturation 95 96 03/27/21 03/27/21 03/27/21 02:19 02:25 02:30 Temperature Heart Rate [ Brachial] Heart Rate [ 107 H 106 H 89 Monitoring electrodes] Respiratory Rate Blood Pressure Blood Pressure 120/77 105/60 106/64 [Right Brachial artery] O2 Saturation 03/27/21 03/27/21 03/27/21 02:35 02:48 02:50 Temperature Heart Rate [ Brachial] Heart Rate [ 89 91 Monitoring electrodes] Respiratory Rate Blood Pressure 114/84 H Blood Pressure 112/55 L 115/58 L [Right Brachial artery] O2 Saturation 03/27/21 03/27/21 03/27/21 03:05 03:20 04:58 Temperature 36.7 C Heart Rate [ Brachial] Heart Rate [ 85 98 100 Monitoring electrodes] Respiratory Rate Blood Pressure Blood Pressure 115/85 H 114/84 H 129/70 [Right Brachial artery] O2 Saturation 94 03/27/21 08:40 Temperature 36.8 C Heart Rate [ 105 H Brachial] Heart Rate [ Monitoring electrodes] Respiratory 18 Rate Blood Pressure Blood Pressure 137/77 H [Right Brachial artery] O2 Saturation 94 Oxygen O2 Source Nasal cannula I&O (Last 24 Hrs): Intake and Output Totals x24h 03/25/21 03/26/21 03/27/21 23:59 23:59 23:59 Intake Total 1368.06 1127.8 220 Output Total 725 425 150 Balance 643.06 702.8 70 General: Alert, Oriented x3, Cooperative HEENT: Atraumatic Neck: Supple Lymphatic: no adenopathy Neuro: Alert, Non Focal, Oriented Times 3 Cardiovascular: Regular rate, Normal S1, Normal S2 Respiratory: Chest non-tender, No respiratory distress Abdomen: Normal bowel sounds, Soft Extremities: Normal pulses - Results Results: Laboratory Results WBC 7.7 x10^3/uL (4.8-10.8) 03/27/21 05:34 RBC 3.00 10^6/uL (4.20-5.40) L 03/27/21 05:34 Hgb 10.0 g/dL (12.0-16.0) L 03/27/21 05:34 Hct 31.3 % (37.0-47.0) L 03/27/21 05:34 MCV 104.3 fL (81.0-99.0) H 03/27/21 05:34 MCH 33.3 pg (27.0-31.0) H 03/27/21 05:34 MCHC 31.9 g/dL (32.0-36.0) L 03/27/21 05:34 RDW 12.5 % (12.0-15.0) 03/27/21 05:34 Plt Count 117 10^3/uL (130-450) L 03/27/21 05:34 MPV 10.4 fL (7.9-10.8) 03/27/21 05:34 Neut # (Auto) 5.8 10^3/uL (1.5-6.6) 03/27/21 05:34 Lymph # (Auto) 0.9 10^3/uL (1.5-3.5) L 03/27/21 05:34 [place] # (Auto) 0.8 10^3/uL (0.0-1.0) 03/27/21 05:34 Eos # (Auto) 0.1 10^3/uL (0.0-0.7) 03/27/21 05:34 Baso # (Auto) 0.0 10^3/uL (0.0-0.1) 03/27/21 05:34 Absolute Nucleated RBC 0.00 x10^3/uL 03/27/21 05:34 Nucleated RBC % 0.0 /100WBC 03/27/21 05:34 Sodium 139 mmol/L (135-145) 03/27/21 05:34 Potassium 3.8 mmol/L (3.5-5.0) 03/27/21 05:34 Chloride 98 mmol/L (101-111) L 03/27/21 05:34 Carbon Dioxide 30 mmol/L (21-32) 03/27/21 05:34 Anion Gap 11.0 (6-13) 03/27/21 05:34 BUN 35 mg/dL (6-20) H 03/27/21 05:34 Creatinine 1.0 mg/dL (0.4-1.0) 03/27/21 05:34 Estimated GFR (MDRD) 53 (>89) L 03/27/21 05:34 Glucose 94 mg/dL (70-100) 03/27/21 05:34 Calcium 8.5 mg/dL (8.5-10.3) 03/27/21 05:34 Magnesium 1.9 mg/dL (1.7-2.8) 03/23/21 02:17 Total Bilirubin 0.9 mg/dL (0.2-1.0) 03/23/21 02:17 AST 21 IU/L (10-42) 03/23/21 02:17 ALT 19 IU/L (10-60) 03/23/21 02:17 Alkaline Phosphatase 26 IU/L (42-121) L 03/23/21 02:17 Total Creatine Kinase 50 IU/L (22-269) 03/24/21 08:07 Troponin I High Sens 91.8 ng/L (2.3-14.8) H* 03/27/21 11:04 Total Protein 6.7 g/dL (6.7-8.2) 03/23/21 02:17 Albumin 3.7 g/dL (3.2-5.5) 03/23/21 02:17 Globulin 3.0 g/dL (2.1-4.2) 03/23/21 02:17 Albumin/Globulin Ratio 1.2 (1.0-2.2) 03/23/21 02:17 Triglycerides 103 mg/dL (-149) 03/27/21 05:34 Cholesterol 128 mg/dL (-199) 03/27/21 05:34 LDL Cholesterol, Calc 69 mg/dL (-129) 03/27/21 05:34 VLDL Cholesterol 21 mg/dL 03/27/21 05:34 HDL Cholesterol 38 mg/dL (60-) L 03/27/21 05:34 LDL/HDL Ratio 1.8 (<4.4) 03/27/21 05:34 Cholesterol/HDL Ratio 3.4 (<4.4) 03/27/21 05:34 Lipase 26 U/L (22-51) 03/23/21 02:17 Vitamin B12 106 pg/mL (180-914) L 03/23/21 02:17 Urine Color YELLOW 03/23/21 01:38 Urine Clarity SL. CLOUDY (CLEAR) 03/23/21 01:38 Urine pH 5.0 PH (5.0-7.5) 03/23/21 01:38 Ur Specific [place] >=1.030 (1.002-1.030) H 03/23/21 01:38 Urine Protein 30 mg/dL (NEGATIVE) H 03/23/21 01:38 Urine Glucose (UA) NEGATIVE mg/dL (NEGATIVE) 03/23/21 01:38 Urine Ketones NEGATIVE mg/dL (NEGATIVE) 03/23/21 01:38 Urine Occult Blood TRACE-INTA (NEGATIVE) 03/23/21 01:38 Urine Nitrite POSITIVE (NEGATIVE) H 03/23/21 01:38 Urine Bilirubin NEGATIVE (NEGATIVE) 03/23/21 01:38 Urine Urobilinogen 0.2 (NORMAL) E.U./dL (NORMAL) 03/23/21 01:38 Ur Leukocyte Esterase SMALL (NEGATIVE) H 03/23/21 01:38 Urine RBC 0-5 /HPF (0-5) 03/23/21 01:38 Urine WBC >25 /HPF (0-5) H 03/23/21 01:38 Ur Squamous Epith Cells MOD Squamous (<= Few) H 03/23/21 01:38 Urine Bacteria Many /HPF (None Seen) H 03/23/21 01:38 Ur Microscopic Review INDICATED 03/23/21 01:38 Urine Culture Comments NOT INDICATED 03/23/21 01:38 Nasal Adenovirus (PCR) NOT DETECTED 03/23/21 02:25 Nasal B. parapertussis DNA (PCR) NOT DETECTED 03/23/21 02:25 Nasal Coronavir 229E PCR NOT DETECTED 03/23/21 02:25 Nasal Coronavir HKU1 PCR NOT DETECTED 03/23/21 02:25 Nasal Coronavir NL63 PCR NOT DETECTED 03/23/21 02:25 Nasal Coronavir OC43 PCR NOT DETECTED 03/23/21 02:25 Nasal Enterovir/Rhinovir PCR NOT DETECTED 03/23/21 02:25 Nasal Influenza B PCR NOT DETECTED 03/23/21 02:25 Nasal Influenza A PCR NOT DETECTED 03/23/21 02:25 Nasal Parainfluen 1 PCR NOT DETECTED 03/23/21 02:25 Nasal Parainfluen 2 PCR NOT DETECTED 03/23/21 02:25 Nasal Parainfluen 3 PCR NOT DETECTED 03/23/21 02:25 Nasal Parainfluen 4 PCR NOT DETECTED 03/23/21 02:25 Nasal RSV (PCR) NOT DETECTED 03/23/21 02:25 Nasal B.pertussis DNA PCR NOT DETECTED 03/23/21 02:25 Nasal C.pneumoniae (PCR) NOT DETECTED 03/23/21 02:25 Rhett Human Metapneumo PCR NOT DETECTED 03/23/21 02:25 Nasal M.pneumoniae (PCR) NOT DETECTED 03/23/21 02:25 Nasal SARS-CoV-2 (PCR) NOT DETECTED 03/23/21 02:25 ABX Reporting Has patient been on IV antibiotics over the past 48 hours?: No Current Medications - Current Medications Current Medications: Active Medications Acetaminophen (Acetaminophen 325 Mg Tablet) 650 mg PO Q4HR PRN PRN Reason: Pain 1 to 4 Last Admin: 03/27/21 10:44 Dose: 650 mg Documented by: Albuterol (Albuterol Neb 2.5 Mg/3 Ml) 2.5 mg INH RTQ4H PRN PRN Reason: Wheezing Last Admin: 03/24/21 19:13 Dose: 2.5 mg Documented by: Albuterol/Ipratropium (Ipratropium/Albuterol 3 Ml Neb) 3 ml INH RTQID PRN PRN Reason: Shortness of Air/Wheezing Apixaban (Apixaban 2.5 Mg Tablet) 2.5 mg PO BID [facility] Last Admin: 03/27/21 08:46 Dose: 2.5 mg Documented by: Calcium Carbonate/Glycine (Calcium Carbonate Chew 500 Mg Tablet) 500 mg PO BID [facility] Last Admin: 03/27/21 08:47 Dose: 500 mg Documented by: Cholecalciferol (Cholecalciferol 25 Mcg Tablet) 50 mcg PO DAILY [facility] Last Admin: 03/27/21 08:45 Dose: 50 mcg Documented by: Clonazepam (Clonazepam 0.5 Mg Tablet) 0.25 mg PO QPM [facility] Diltiazem HCl (Diltiazem Cd 120 Mg Capsule) 120 mg PO DAILY [facility] Last Admin: 03/27/21 08:47 Dose: 120 mg Documented by: Docusate Sodium (Docusate Sodium 250 Mg Capsule) 250 - 500 mg PO DAILY [facility] Last Admin: 03/27/21 08:46 Dose: 250 mg Documented by: Ketorolac Tromethamine (Ketorolac 15 Mg/Ml Vial) 15 mg IVP Q6HR PRN PRN Reason: PAIN Stop: 03/30/21 11:08 Last Admin: 03/27/21 12:05 Dose: 15 mg Documented by: Memantine (Memantine 5 Mg Tablet) 10 mg PO BID [facility] Last Admin: 03/27/21 10:45 Dose: 10 mg Documented by: Metoprolol Succinate (Metoprolol Succinate 50 Mg Tablet) 50 mg PO QPM [facility] Last Admin: 03/26/21 20:26 Dose: 50 mg Documented by: Metoprolol Tartrate (Metoprolol 5 Mg/5 Ml Vial) 5 mg IVP Q6H PRN PRN Reason: Tachycardia Last Admin: 03/27/21 02:18 Dose: 5 mg Documented by: Mirtazapine (Mirtazapine 15 Mg Tablet) 15 mg PO QPM [facility] Last Admin: 03/26/21 20:26 Dose: 15 mg Documented by: Morphine Sulfate (Morphine 2 Mg/Ml Carpuject) 2 mg IVP Q2HR PRN PRN Reason: Pain 8 to 10 Last Admin: 03/25/21 04:25 Dose: 2 mg Documented by: Multivitamins/Minerals (Multivitamin W/Minerals Tablet) 1 tab PO DAILYWM [facility] Last Admin: 03/27/21 08:45 Dose: 1 tab Documented by: Ondansetron HCl (Ondansetron Odt 4 Mg Tablet) 4 mg TL Q6HR PRN PRN Reason: Nausea / Vomiting Ondansetron HCl (Ondansetron 4 Mg/2 Ml Vial) 4 mg IVP Q6HR PRN PRN Reason: Nausea / Vomiting Oxycodone HCl (Oxycodone 5 Mg Tablet) 5 mg PO Q4HR PRN PRN Reason: Pain 5 to 7 Last Admin: 03/26/21 09:47 Dose: 5 mg Documented by: Polyethylene Glycol (Polyethylene Glycol 3350 17 Gm Packet) 17 gm PO DAILY [facility] Last Admin: 03/27/21 08:47 Dose: 17 gm Documented by: Sodium Chloride (Sodium Chloride Flush 0.9% 10 Ml Syringe) 10 ml IVP PRN PRN PRN Reason: NEEDED PER PROVIDER ORDERS Last Admin: 03/27/21 12:05 Dose: 10 ml Documented by: Sodium Chloride (Sodium Chloride Flush 0.9% 10 Ml Syringe) 10 ml IVP 0100,0900,1700 [facility] Last Admin: 03/26/21 23:37 Dose: 10 ml Documented by: Diltiazem HCl [Cartia Xt] 120 mg PO DAILY 10/30/14 Albuterol Sulfate [Albuterol Sulfate Hfa] 2 puffs INH DAILY PRN 07/09/19 Apixaban [Eliquis] 2.5 mg PO BID 03/23/21 Memantine HCl [Namenda] 10 mg PO BID 03/23/21 Metoprolol Succinate [Toprol Xl] 50 mg PO QPM 03/23/21 Mirtazapine 15 mg PO QPM 03/23/21 clonazePAM [Clonazepam] 0.5 tab PO BID 03/23/21
[2021-03-27] MEDS: SODIUM CHLORIDE FLUSH 0.9% 10 ML SYRINGE IVP SCH ×2 (13:52→15:34)
[2021-03-27] MEDS: ALBUTEROL NEB 2.5 MG/3 ML INH PRN (20:26)
[2021-03-27] MEDS: clonazePAM 0.5 MG TABLET PO SCH (21:31)
[2021-03-27] MEDS: MIRTAZAPINE 15 MG TABLET PO SCH (21:32)
[2021-03-27] MEDS: METOPROLOL SUCCINATE 50 MG TABLET PO SCH (21:32)
[2021-03-27] MEDS: SENNA 8.6 MG TABLET PO SCH (21:32)
[2021-03-27] MEDS ORDERED: HALOPERIDOL 5 MG/ML VIAL IVP PRN (21:32)
[2021-03-27] MEDS: MORPHINE 2 MG/ML CARPUJECT IVP PRN (21:42)
[2021-03-28] MEDS: SODIUM CHLORIDE FLUSH 0.9% 10 ML SYRINGE IVP SCH ×3 (00:12→17:01)
[2021-03-28] MEDS: KETOROLAC 15 MG/ML VIAL IVP PRN (00:18)
[2021-03-28] MEDS: METOPROLOL 5 MG/5 ML VIAL IVP PRN (00:22)
[2021-03-28 06:33] LABS: BASOPHILS # (AUTO) 0.1 10^3/uL (0.0-0.1); BASOPHILS % (AUTO) 0.8 %; EOSINOPHILS # (AUTO) 0.2 10^3/uL (0.0-0.7); EOSINOPHILS % (AUTO) 3.8 %; HCT - HEMATOCRIT 28.7 % (37.0-47.0); HGB - HEMOGLOBIN 9.1 g/dL (12.0-16.0); LYMPHOCYTES # (AUTO) 0.8 10^3/uL (1.5-3.5); LYMPHOCYTES % (AUTO) 13.6 %; MEAN CORPUSCULAR HEMOGLOBIN 32.5 pg (27.0-31.0); MEAN CORPUSCULAR HGB CONC 31.7 g/dL (32.0-36.0); MEAN CORPUSCULAR VOLUME 102.5 fL (81.0-99.0); MEAN PLATELET VOLUME 10.1 fL (7.9-10.8); MONOCYTES # (AUTO) 0.6 10^3/uL (0.0-1.0); NEUTROPHILS # (AUTO) 4.4 10^3/uL (1.5-6.6); NEUTROPHILS % (AUTO) 71.5 %; PLT - PLATELET COUNT 113 10^3/uL (130-450); RED CELL DISTRIBUTION WIDTH 12.2 % (12.0-15.0); WHITE BLOOD COUNT 6.1 x10^3/uL (4.8-10.8)
[2021-03-28 06:43] LABS: CALCIUM 8.3 mg/dL (8.5-10.3); CREATININE 0.7 mg/dL (0.4-1.0); POTASSIUM 3.5 mmol/L (3.5-5.0)
[2021-03-28] MEDS: SENNA 8.6 MG TABLET PO SCH ×2 (10:26→20:33)
[2021-03-28] MEDS: DOCUSATE SODIUM 250 MG CAPSULE PO SCH (10:27)
[2021-03-28] MEDS: MEMANTINE 5 MG TABLET PO SCH ×2 (10:27→20:33)
[2021-03-28] MEDS: CHOLECALCIFEROL 25 MCG TABLET PO SCH (10:28)
[2021-03-28] MEDS: diltiaZEM CD 120 MG CAPSULE PO SCH (10:28)
[2021-03-28] MEDS: APIXABAN 2.5 MG TABLET PO SCH ×2 (10:28→20:33)
[2021-03-28] MEDS: MULTIVITAMIN W/MINERALS TABLET PO SCH (10:31)
[2021-03-28] MEDS: polyethylene glycoL 3350 17 GM PACKET PO SCH (10:31)
[2021-03-28] MEDS: CALCIUM CARBONATE CHEW 500 MG TABLET PO SCH ×2 (10:32→20:33)
[2021-03-28] MEDS ORDERED: oxyCODONE 5 MG TABLET PO PRN (11:43)
[2021-03-28] MEDS: ACETAMINOPHEN 325 MG TABLET PO PRN ×2 (14:53→20:33)
[2021-03-28] MEDS: ALBUTEROL NEB 2.5 MG/3 ML INH PRN (16:52)
--- NOTE | 2021-03-28 18:34 | PROVIDER PROGRESS NOTE ---
Assessment/Plan - Problem List (1) Hypersomnolence due to substance Assessment/Plan: She has been asleep for 12 hours, ever since she got a morphine 2 mg dose IV. This is excessive for a patient who only has a BMI of 15 and is 85 y/o. Because of hypersomnolence, she could not participate with PT as actively today. We will decrease oxycodone dose and spread it out and will stop her iv morphine to prevent a recurrence. She still has the Velazquez which was used perioperatively. We will discontinue this when she is awake, later today 2) Intertrochanteric fracture of right hip Qualifiers: Encounter type: initial encounter Fracture type: closed Fracture alignment: displaced Qualified Code(s): S72.141A - Displaced intertrochanteric fracture of right femur, initial encounter for closed fracture Assessment/Plan: She is POD #3 today. Orthopedics is pleased with the results. Continue with PT and OT. Pain meds to be decreased (as in #1) Continue Eliquis for the Afib and for DVT prophylaxis. Consult with social work for discharge planning (3) Pulmonary hypertension her Echo showed patient has a 69 mmHG RV syst pressure , moderate-severe Pulmonary hypertension. Patient should have PCP and Cardiol F/U as outpatient (4) COPD Patient has a history of COPD, she is not in exacerbation We added albuterol/ DuoNeb as needed, and supplemental oxygen as needed to keep O2 sats > 88% (5) Atrial septal defect Her Echo showed foramen ovale. This may be secondary to the pulm HTN or a primary defect. Patient may need a referral to Cardiology to evaluate and manage (6) Elevated troponin, Patient denied chest pain. Patient was hemodynamic stable. EKG showed A fibrillation without ST segment changing, no evidence to support Myocardial ischemia. Recently Echo show normal range EF. 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 (7) Atrial fibrillation with RVR Rate is controlled after we resumed patient's home Cardizem and metoprolol. She is on anticoagulation. Continue telemetry to monitor patient (8) Osteoporosis Started calcium, vitamin D. After surgery Reclast injection for the year. (9) Unintentional weight loss She is not depressed. She states that she does not wish failure to thrive. She does not know why she lost her appetite. But it slowly starting to come back and she hopes to regain her weight. (10) Anemia Will order B12 and folate levels and iron store labs and replace if low Follow H/H daily (11) Respiratory failure with hypoxia Resolved - Current Meds Current Meds: Current Medications Generic Name Dose Route Start Last Admin Trade Name Freq PRN Reason Stop Dose Admin Acetaminophen 650 mg 03/23/21 02:00 03/28/21 14:53 Acetaminophen 325 Mg Tablet PO 650 mg Q4HR PRN Administration Pain 1 to 4 Albuterol 2.5 mg 03/24/21 06:56 03/28/21 16:52 Albuterol Neb 2.5 Mg/3 Ml INH 2.5 mg RTQ4H PRN Administration Wheezing Apixaban 2.5 mg 03/25/21 21:00 03/28/21 10:28 Apixaban 2.5 Mg Tablet PO 2.5 mg BID RADHA Administration Calcium Carbonate/Glycine 500 mg 03/24/21 11:00 03/28/21 10:32 Calcium Carbonate Chew 500 Mg Tablet PO 500 mg BID RADHA Administration Cholecalciferol 50 mcg 03/24/21 11:00 03/28/21 10:28 Cholecalciferol 25 Mcg Tablet PO 50 mcg DAILY RADHA Administration Clonazepam 0.25 mg 03/27/21 21:00 03/27/21 21:31 Clonazepam 0.5 Mg Tablet PO 0.25 mg QPM RADHA Administration Diltiazem HCl 120 mg 03/24/21 09:00 03/28/21 10:28 Diltiazem Cd 120 Mg Capsule PO 120 mg DAILY RADHA Administration Docusate Sodium 250 - 500 mg 03/27/21 09:00 03/28/21 10:27 Docusate Sodium 250 Mg Capsule PO 250 mg DAILY RADHA Administration Ketorolac Tromethamine 15 mg 03/25/21 11:09 03/28/21 00:18 Ketorolac 15 Mg/Ml Vial IVP 03/30/21 11:08 15 mg Q6HR PRN Administration PAIN Memantine 10 mg 03/27/21 10:00 03/28/21 10:27 Memantine 5 Mg Tablet PO 10 mg BID RADHA Administration Metoprolol Succinate 50 mg 03/24/21 21:00 03/27/21 21:32 Metoprolol Succinate 50 Mg Tablet PO 50 mg QPM RADHA Administration Metoprolol Tartrate 5 mg 03/24/21 07:59 03/28/21 00:22 Metoprolol 5 Mg/5 Ml Vial IVP 5 mg Q6H PRN Administration Tachycardia Mirtazapine 15 mg 03/24/21 21:00 03/27/21 21:32 Mirtazapine 15 Mg Tablet PO 15 mg QPM RADHA Administration Multivitamins/Minerals 1 tab 03/26/21 11:00 03/28/21 10:31 Multivitamin W/Minerals Tablet PO 1 tab DAILYWM RADHA Administration Polyethylene Glycol 17 gm 03/26/21 09:00 03/28/21 10:31 Polyethylene Glycol 3350 17 Gm Packet PO 17 gm DAILY RADHA Administration Senna 8.6 - 17.2 mg 03/27/21 21:00 03/28/21 10:26 Senna 8.6 Mg Tablet PO 8.6 mg BID RADHA Administration Sodium Chloride 10 ml 03/23/21 02:00 03/27/21 18:07 Sodium Chloride Flush 0.9% 10 Ml Syringe IVP 10 ml PRN PRN Administration NEEDED PER PROVIDER ORDERS Sodium Chloride 10 ml 03/23/21 09:00 03/28/21 17:01 Sodium Chloride Flush 0.9% 10 Ml Syringe IVP Not Given 0100,0900,1700 RADHA - Lab Result Fish Bone Diagrams: 03/29/21 05:53 03/29/21 05:53 - Additional Planning My Orders: My Active Orders 03/28/21 11:43 oxyCODONE [Roxicodone] 5 mg PO Q6HR PRN 03/29/21 RESPIRATORY PCR PANEL Urgent 03/29/21 07:00 Velazquez Discontinuation [RC] ONCE Subjective - Subjective Nursing Reports: Other (The patient has been sleeping for approximately 12 hours, since her last dose of morphine (2 mg IV)) Objective Vital Signs: Vital Signs - 24 hr 03/27/21 03/27/21 03/27/21 20:26 21:13 21:38 Temperature 36.8 C Heart Rate 102 H Heart Rate [ Brachial] Heart Rate [ 100 94 Monitoring electrodes] Respiratory 16 17 Rate Blood Pressure Blood Pressure 125/87 H [Right Brachial artery] O2 Saturation 100 03/27/21 03/28/21 03/28/21 23:46 00:22 00:25 Temperature 36.9 C Heart Rate Heart Rate [ 115 H Brachial] Heart Rate [ 102 H Monitoring electrodes] Respiratory 16 Rate Blood Pressure 157/96 H Blood Pressure 130/77 142/97 H [Right Brachial artery] O2 Saturation 96 03/28/21 03/28/21 03/28/21 00:30 00:35 00:50 Temperature Heart Rate Heart Rate [ Brachial] Heart Rate [ 106 H 93 91 Monitoring electrodes] Respiratory Rate Blood Pressure Blood Pressure 129/82 H 144/85 H 127/73 [Right Brachial artery] O2 Saturation 03/28/21 03/28/21 03/28/21 00:52 01:05 01:20 Temperature Heart Rate Heart Rate [ Brachial] Heart Rate [ 89 93 Monitoring electrodes] Respiratory Rate Blood Pressure 122/69 Blood Pressure 108/65 122/69 [Right Brachial artery] O2 Saturation 03/28/21 03/28/21 03/28/21 05:00 08:33 13:00 Temperature 36.6 C 36.4 C L 36.5 C Heart Rate Heart Rate [ Brachial] Heart Rate [ 95 104 H 104 H Monitoring electrodes] Respiratory 21 15 15 Rate Blood Pressure Blood Pressure 123/73 134/95 H 136/90 H [Right Brachial artery] O2 Saturation 98 97 96 03/28/21 03/28/21 15:42 16:52 Temperature 36.5 C Heart Rate 97 Heart Rate [ Brachial] Heart Rate [ 96 Monitoring electrodes] Respiratory 16 18 Rate Blood Pressure Blood Pressure 116/67 [Right Brachial artery] O2 Saturation 93 Oxygen O2 Source Nasal cannula I&O (Last 24 Hrs): Intake and Output Totals x24h 03/26/21 03/27/21 03/28/21 23:59 23:59 23:59 Intake Total 1127.8 570 50 Output Total 425 395 275 Balance 702.8 175 -225 General: Other (sleeping, appears comfortable) HEENT: Mucous membr. moist/pink Neck: Supple Neuro: Other (sedated) Cardiovascular: Other (Syst murmur and RV heave present, PMI is vertically displaced) Respiratory: No respiratory distress, Other (Ribs palpable, cachectic chest) Abdomen: Soft Genitourinary: Other (Has a Velazquez) Extremities: No edema - Results Results: Laboratory Results WBC 6.1 x10^3/uL (4.8-10.8) 03/28/21 05:26 RBC 2.80 10^6/uL (4.20-5.40) L 03/28/21 05:26 Hgb 9.1 g/dL (12.0-16.0) L 03/28/21 05:26 Hct 28.7 % (37.0-47.0) L 03/28/21 05:26 MCV 102.5 fL (81.0-99.0) H 03/28/21 05:26 MCH 32.5 pg (27.0-31.0) H 03/28/21 05:26 MCHC 31.7 g/dL (32.0-36.0) L 03/28/21 05:26 RDW 12.2 % (12.0-15.0) 03/28/21 05:26 Plt Count 113 10^3/uL (130-450) L 03/28/21 05:26 MPV 10.1 fL (7.9-10.8) 03/28/21 05:26 Neut # (Auto) 4.4 10^3/uL (1.5-6.6) 03/28/21 05:26 Lymph # (Auto) 0.8 10^3/uL (1.5-3.5) L 03/28/21 05:26 [place] # (Auto) 0.6 10^3/uL (0.0-1.0) 03/28/21 05:26 Eos # (Auto) 0.2 10^3/uL (0.0-0.7) 03/28/21 05:26 Baso # (Auto) 0.1 10^3/uL (0.0-0.1) 03/28/21 05:26 Absolute Nucleated RBC 0.00 x10^3/uL 03/28/21 05:26 Nucleated RBC % 0.0 /100WBC 03/28/21 05:26 Sodium 138 mmol/L (135-145) 03/28/21 05:26 Potassium 3.5 mmol/L (3.5-5.0) 03/28/21 05:26 Chloride 97 mmol/L (101-111) L 03/28/21 05:26 Carbon Dioxide 33 mmol/L (21-32) H 03/28/21 05:26 Anion Gap 8.0 (6-13) 03/28/21 05:26 BUN 36 mg/dL (6-20) H 03/28/21 05:26 Creatinine 0.7 mg/dL (0.4-1.0) 03/28/21 05:26 Estimated GFR (MDRD) 79 (>89) L 03/28/21 05:26 Glucose 100 mg/dL (70-100) 03/28/21 05:26 Calcium 8.3 mg/dL (8.5-10.3) L 03/28/21 05:26 Magnesium 1.9 mg/dL (1.7-2.8) 03/23/21 02:17 Total Bilirubin 0.9 mg/dL (0.2-1.0) 03/23/21 02:17 AST 21 IU/L (10-42) 03/23/21 02:17 ALT 19 IU/L (10-60) 03/23/21 02:17 Alkaline Phosphatase 26 IU/L (42-121) L 03/23/21 02:17 Total Creatine Kinase 50 IU/L (22-269) 03/24/21 08:07 Troponin I High Sens 91.8 ng/L (2.3-14.8) H* 03/27/21 11:04 Total Protein 6.7 g/dL (6.7-8.2) 03/23/21 02:17 Albumin 3.7 g/dL (3.2-5.5) 03/23/21 02:17 Globulin 3.0 g/dL (2.1-4.2) 03/23/21 02:17 Albumin/Globulin Ratio 1.2 (1.0-2.2) 03/23/21 02:17 Triglycerides 103 mg/dL (-149) 03/27/21 05:34 Cholesterol 128 mg/dL (-199) 03/27/21 05:34 LDL Cholesterol, Calc 69 mg/dL (-129) 03/27/21 05:34 VLDL Cholesterol 21 mg/dL 03/27/21 05:34 HDL Cholesterol 38 mg/dL (60-) L 03/27/21 05:34 LDL/HDL Ratio 1.8 (<4.4) 03/27/21 05:34 Cholesterol/HDL Ratio 3.4 (<4.4) 03/27/21 05:34 Lipase 26 U/L (22-51) 03/23/21 02:17 Vitamin B12 106 pg/mL (180-914) L 03/23/21 02:17 Urine Color YELLOW 03/23/21 01:38 Urine Clarity SL. CLOUDY (CLEAR) 03/23/21 01:38 Urine pH 5.0 PH (5.0-7.5) 03/23/21 01:38 Ur Specific [place] >=1.030 (1.002-1.030) H 03/23/21 01:38 Urine Protein 30 mg/dL (NEGATIVE) H 03/23/21 01:38 Urine Glucose (UA) NEGATIVE mg/dL (NEGATIVE) 03/23/21 01:38 Urine Ketones NEGATIVE mg/dL (NEGATIVE) 03/23/21 01:38 Urine Occult Blood TRACE-INTA (NEGATIVE) 03/23/21 01:38 Urine Nitrite POSITIVE (NEGATIVE) H 03/23/21 01:38 Urine Bilirubin NEGATIVE (NEGATIVE) 03/23/21 01:38 Urine Urobilinogen 0.2 (NORMAL) E.U./dL (NORMAL) 03/23/21 01:38 Ur Leukocyte Esterase SMALL (NEGATIVE) H 03/23/21 01:38 Urine RBC 0-5 /HPF (0-5) 03/23/21 01:38 Urine WBC >25 /HPF (0-5) H 03/23/21 01:38 Ur Squamous Epith Cells MOD Squamous (<= Few) H 03/23/21 01:38 Urine Bacteria Many /HPF (None Seen) H 03/23/21 01:38 Ur Microscopic Review INDICATED 03/23/21 01:38 Urine Culture Comments NOT INDICATED 03/23/21 01:38 Nasal Adenovirus (PCR) NOT DETECTED 03/23/21 02:25 Nasal B. parapertussis DNA (PCR) NOT DETECTED 03/23/21 02:25 Nasal Coronavir 229E PCR NOT DETECTED 03/23/21 02:25 Nasal Coronavir HKU1 PCR NOT DETECTED 03/23/21 02:25 Nasal Coronavir NL63 PCR NOT DETECTED 03/23/21 02:25 Nasal Coronavir OC43 PCR NOT DETECTED 03/23/21 02:25 Nasal Enterovir/Rhinovir PCR NOT DETECTED 03/23/21 02:25 Nasal Influenza B PCR NOT DETECTED 03/23/21 02:25 Nasal Influenza A PCR NOT DETECTED 03/23/21 02:25 Nasal Parainfluen 1 PCR NOT DETECTED 03/23/21 02:25 Nasal Parainfluen 2 PCR NOT DETECTED 03/23/21 02:25 Nasal Parainfluen 3 PCR NOT DETECTED 03/23/21 02:25 Nasal Parainfluen 4 PCR NOT DETECTED 03/23/21 02:25 Nasal RSV (PCR) NOT DETECTED 03/23/21 02:25 Nasal B.pertussis DNA PCR NOT DETECTED 03/23/21 02:25 Nasal C.pneumoniae (PCR) NOT DETECTED 03/23/21 02:25 Rhett Human Metapneumo PCR NOT DETECTED 03/23/21 02:25 Nasal M.pneumoniae (PCR) NOT DETECTED 03/23/21 02:25 Nasal SARS-CoV-2 (PCR) NOT DETECTED 03/23/21 02:25
[2021-03-28] MEDS: clonazePAM 0.5 MG TABLET PO SCH (20:32)
[2021-03-28] MEDS: METOPROLOL SUCCINATE 50 MG TABLET PO SCH (20:32)
[2021-03-28] MEDS: MIRTAZAPINE 15 MG TABLET PO SCH (20:33)
[2021-03-29] MEDS: SODIUM CHLORIDE FLUSH 0.9% 10 ML SYRINGE IVP SCH ×3 (00:31→20:44)
[2021-03-29] MEDS: KETOROLAC 15 MG/ML VIAL IVP PRN (00:31)
[2021-03-29 06:16] LABS: BASOPHILS # (AUTO) 0.1 10^3/uL (0.0-0.1); BASOPHILS % (AUTO) 0.9 %; EOSINOPHILS # (AUTO) 0.3 10^3/uL (0.0-0.7); EOSINOPHILS % (AUTO) 4.9 %; HCT - HEMATOCRIT 31.7 % (37.0-47.0); HGB - HEMOGLOBIN 10.4 g/dL (12.0-16.0); LYMPHOCYTES # (AUTO) 0.8 10^3/uL (1.5-3.5); LYMPHOCYTES % (AUTO) 11.6 %; MEAN CORPUSCULAR HEMOGLOBIN 33.5 pg (27.0-31.0); MEAN CORPUSCULAR HGB CONC 32.8 g/dL (32.0-36.0); MEAN CORPUSCULAR VOLUME 102.3 fL (81.0-99.0); MEAN PLATELET VOLUME 9.8 fL (7.9-10.8); MONOCYTES # (AUTO) 0.7 10^3/uL (0.0-1.0); MONOCYTES % (AUTO) 10.2 %; NEUTROPHILS # (AUTO) 4.7 10^3/uL (1.5-6.6); NEUTROPHILS % (AUTO) 72.1 %; PLT - PLATELET COUNT 141 10^3/uL (130-450); RED CELL DISTRIBUTION WIDTH 12.6 % (12.0-15.0); WHITE BLOOD COUNT 6.6 x10^3/uL (4.8-10.8)
[2021-03-29 06:28] LABS: CREATININE 0.6 mg/dL (0.4-1.0); POTASSIUM 3.6 mmol/L (3.5-5.0)
[2021-03-29] MEDS: DOCUSATE SODIUM 250 MG CAPSULE PO SCH (09:04)
[2021-03-29] MEDS: polyethylene glycoL 3350 17 GM PACKET PO SCH (09:04)
[2021-03-29] MEDS: CHOLECALCIFEROL 25 MCG TABLET PO SCH ×2 (09:04→09:05)
[2021-03-29] MEDS: SENNA 8.6 MG TABLET PO SCH ×2 (09:04→20:47)
[2021-03-29] MEDS: diltiaZEM CD 120 MG CAPSULE PO SCH (09:05)
[2021-03-29] MEDS: APIXABAN 2.5 MG TABLET PO SCH ×2 (09:05→20:47)
[2021-03-29] MEDS: MEMANTINE 5 MG TABLET PO SCH ×2 (09:05→20:47)
[2021-03-29] MEDS: CALCIUM CARBONATE CHEW 500 MG TABLET PO SCH ×2 (09:05→20:47)
[2021-03-29] MEDS: MULTIVITAMIN W/MINERALS TABLET PO SCH (09:05)
[2021-03-29 11:40] LABS: B. PARAPERTUSSIS- RESP PCR PAN NOT DETECTED; B. PERTUSSIS- RESP PCR PANEL NOT DETECTED; C. PNEUMONIAE- RESP PCR PANEL NOT DETECTED; CORONAVIRUS 229E-RESP PCR NOT DETECTED; CORONAVIRUS HKU1-RESP PCR NOT DETECTED; CORONAVIRUS NL63-RESP PCR NOT DETECTED; CORONAVIRUS OC43-RESP PCR NOT DETECTED; HUMAN METAPNEUMOVIRUS NOT DETECTED; INFLUENZA A- RESP PCR PANEL NOT DETECTED; INFLUENZA B - RESP PCR PANEL NOT DETECTED; M. PNEUMONIAE- RESP PCR PANEL NOT DETECTED; PARAINFLUENZA VIRUS 1 NOT DETECTED; PARAINFLUENZA VIRUS 2 NOT DETECTED; PARAINFLUENZA VIRUS 3 NOT DETECTED; PARAINFLUENZA VIRUS 4 NOT DETECTED; RHINOVIRUS/ENTEROVIRUS NOT DETECTED; RSV- RESP PCR PANEL NOT DETECTED; SARS-CoV-2 -RESP PCR PANEL NOT DETECTED
[2021-03-29] MEDS: ACETAMINOPHEN 325 MG TABLET PO PRN (12:53)
[2021-03-29] MEDS ORDERED: SODIUM CHLORIDE 0.9% 500 ML IV ONE (14:55)
--- NOTE | 2021-03-29 14:57 | PROVIDER PROGRESS NOTE ---
Assessment/Plan - Problem List (1) Hypotension due to hypovolemia Assessment/Plan: The patient had no urine output for about 1 shift. Her systolic blood pressure dropped to 90 syst at midday. We will give a fluid push of 500 cc normal saline. We will start very slow IV fluids for rehydration, since she has severe pulm HTN Follow BMP daily. Will check for orthostasis, she may be lightheaded and that is why she is only partially cooperating with PT thus far 2) Intertrochanteric fracture of right hip Qualifiers: Encounter type: initial encounter Fracture type: closed Fracture alignment: displaced Qualified Code(s): S72.141A - Displaced intertrochanteric fracture of right femur, initial encounter for closed fracture Assessment/Plan: She is POD #4 today. Orthopedics was pleased with the results. Continue with PT and OT. Pain meds were decreased so she was more awake, but is anxious Continue Eliquis for the Afib and for DVT prophylaxis. Plan is for SNF eventually for PT and OT rehab (3) Pulmonary hypertension Her Echo showed patient has a 69 mmHG RV syst pressure , moderate-severe Pulmonary hypertension. Patient should have PCP and Cardiol F/U as outpatient (4) COPD Patient has a history of COPD, she is not in exacerbation We added albuterol/ DuoNeb as needed, and supplemental oxygen as needed to keep O2 sats > 88% (5) Atrial septal defect Her Echo showed a foramen ovale. This may be secondary to the pulm HTN or a primary PFO defect. Patient may need a referral to Cardiology to evaluate and manage (6) Elevated troponin Patient denied chest pain. Patient was hemodynamically stable until new low BP today. EKG showed A fibrillation without ST segment changing, no evidence to support Myocardial ischemia. Recently Echo show normal LV EF. This troponin elevation was likely demand ischemia from Afib with RVR (see below) We will continue home medication Eliquis, metoprolol, Continue retort pre cooker patient. (7) Chronic atrial fibrillation Rate is now controlled after we resumed patient's home Cardizem and metoprolol. She is on anticoagulation. Continue telemetry to monitor patient (8) Osteoporosis Started calcium, vitamin D. After surgery Reclast injection for the year. (9) Anemia Will order B12 and folate levels and iron store labs and replace if low Follow H/H daily (2) Hypersomnolence due to substance Assessment/Plan: Resolved with stopping Morphine and decreasing Oxycodone dose. - Current Meds Current Meds: Current Medications Generic Name Dose Route Start Last Admin Trade Name Freq PRN Reason Stop Dose Admin Acetaminophen 650 mg 03/23/21 02:00 03/29/21 12:53 Acetaminophen 325 Mg Tablet PO 650 mg Q4HR PRN Administration Pain 1 to 4 Albuterol 2.5 mg 03/24/21 06:56 03/28/21 16:52 Albuterol Neb 2.5 Mg/3 Ml INH 2.5 mg RTQ4H PRN Administration Wheezing Apixaban 2.5 mg 03/25/21 21:00 03/29/21 09:05 Apixaban 2.5 Mg Tablet PO 2.5 mg BID RADHA Administration Calcium Carbonate/Glycine 500 mg 03/24/21 11:00 03/29/21 09:05 Calcium Carbonate Chew 500 Mg Tablet PO 500 mg BID RADHA Administration Cholecalciferol 50 mcg 03/24/21 11:00 03/29/21 09:05 Cholecalciferol 25 Mcg Tablet PO 25 mcg DAILY RADHA Administration Clonazepam 0.25 mg 03/27/21 21:00 03/28/21 20:32 Clonazepam 0.5 Mg Tablet PO 0.25 mg QPM RADHA Administration Diltiazem HCl 120 mg 03/24/21 09:00 03/29/21 09:05 Diltiazem Cd 120 Mg Capsule PO 120 mg DAILY RADHA Administration Docusate Sodium 250 - 500 mg 03/27/21 09:00 03/29/21 09:04 Docusate Sodium 250 Mg Capsule PO 250 mg DAILY RADHA Administration Haloperidol 1 mg 03/27/21 21:32 03/28/21 22:42 Haloperidol 5 Mg/Ml Vial IVP 1 mg Q6H PRN Administration Agitation Ketorolac Tromethamine 15 mg 03/25/21 11:09 03/29/21 00:31 Ketorolac 15 Mg/Ml Vial IVP 03/30/21 11:08 15 mg Q6HR PRN Administration PAIN Memantine 10 mg 03/27/21 10:00 03/29/21 09:05 Memantine 5 Mg Tablet PO 10 mg BID RADHA Administration Metoprolol Succinate 50 mg 03/24/21 21:00 03/28/21 20:32 Metoprolol Succinate 50 Mg Tablet PO 50 mg QPM RADHA Administration Metoprolol Tartrate 5 mg 03/24/21 07:59 03/28/21 00:22 Metoprolol 5 Mg/5 Ml Vial IVP 5 mg Q6H PRN Administration Tachycardia Mirtazapine 15 mg 03/24/21 21:00 03/28/21 20:33 Mirtazapine 15 Mg Tablet PO 15 mg QPM RADHA Administration Multivitamins/Minerals 1 tab 03/26/21 11:00 03/29/21 09:05 Multivitamin W/Minerals Tablet PO 1 tab DAILYWM RADHA Administration Polyethylene Glycol 17 gm 03/26/21 09:00 03/29/21 09:04 Polyethylene Glycol 3350 17 Gm Packet PO 17 gm DAILY RADHA Administration Senna 8.6 - 17.2 mg 03/27/21 21:00 03/29/21 09:04 Senna 8.6 Mg Tablet PO 8.6 mg BID RADHA Administration Sodium Chloride 10 ml 03/23/21 02:00 03/27/21 18:07 Sodium Chloride Flush 0.9% 10 Ml Syringe IVP 10 ml PRN PRN Administration NEEDED PER PROVIDER ORDERS Sodium Chloride 10 ml 03/23/21 09:00 03/29/21 09:04 Sodium Chloride Flush 0.9% 10 Ml Syringe IVP 10 ml 0100,0900,1700 RADHA Administration - Lab Result Fish Bone Diagrams: 03/29/21 05:53 03/29/21 05:53 - Additional Planning My Orders: My Active Orders 03/29/21 14:55 Sodium Chloride 0.9% [Normal Saline 0.9%] 500 ml IV ONCE Subjective - Subjective Patient Reports: Other (Wants HOB elevated because has anxiety and SOB) Nursing Reports: Other (Only stood when working with PT, then back to bed, no steps yet) Objective Vital Signs: Vital Signs - 24 hr 03/28/21 03/28/21 03/28/21 15:42 16:52 19:55 Temperature 36.5 C Heart Rate 97 99 Heart Rate [ Brachial] Heart Rate [ 96 Monitoring electrodes] Respiratory 16 18 20 Rate Blood Pressure 116/67 [Right Brachial artery] O2 Saturation 93 03/28/21 03/28/21 03/28/21 19:58 20:38 23:41 Temperature 36.3 C L 36.3 C L Heart Rate Heart Rate [ 99 97 109 H Brachial] Heart Rate [ Monitoring electrodes] Respiratory 20 20 Rate Blood Pressure 91/55 L 135/66 H 131/74 H [Right Brachial artery] O2 Saturation 98 95 03/29/21 03/29/21 03/29/21 05:00 08: 10:10 Temperature 36.6 C 36.6 C Heart Rate 107 H Heart Rate [ 95 Brachial] Heart Rate [ 92 Monitoring electrodes] Respiratory 19 16 18 Rate Blood Pressure 140/75 H 124/72 [Right Brachial artery] O2 Saturation 97 98 03/29/21 13:14 Temperature 36.5 C Heart Rate Heart Rate [ Brachial] Heart Rate [ 98 Monitoring electrodes] Respiratory 16 Rate Blood Pressure 98/56 L [Right Brachial artery] O2 Saturation 96 Oxygen O2 Source Nasal cannula I&O (Last 24 Hrs): Intake and Output Totals x24h 03/27/21 03/28/21 03/29/21 23:59 23:59 23:59 Intake Total 570 50 670 Output Total 395 425 Balance 175 -375 670 General: Alert HEENT: Mucous membr. moist/pink Neck: Supple, Other ((+) JVD at 45 degree upright angle) Neuro: Alert, Disoriented, Non Focal Cardiovascular: Other (PMI in epigastrium (vertically displaced), 2/6 rumble syst and diast murmur at LLSB) Respiratory: No respiratory distress, Other (Poor air mvm, nol rtales or rhonchi) Abdomen: Normal bowel sounds, Soft, No tenderness Extremities: No clubbing, No edema Skin: No rashes ((+) skin tenting of arms) - Results Results: Laboratory Results WBC 6.6 x10^3/uL (4.8-10.8) 03/29/21 05:53 RBC 3.10 10^6/uL (4.20-5.40) L 03/29/21 05:53 Hgb 10.4 g/dL (12.0-16.0) L 03/29/21 05:53 Hct 31.7 % (37.0-47.0) L 03/29/21 05:53 MCV 102.3 fL (81.0-99.0) H 03/29/21 05:53 MCH 33.5 pg (27.0-31.0) H 03/29/21 05:53 MCHC 32.8 g/dL (32.0-36.0) 03/29/21 05:53 RDW 12.6 % (12.0-15.0) 03/29/21 05:53 Plt Count 141 10^3/uL (130-450) 03/29/21 05:53 MPV 9.8 fL (7.9-10.8) 03/29/21 05:53 Neut # (Auto) 4.7 10^3/uL (1.5-6.6) 03/29/21 05:53 Lymph # (Auto) 0.8 10^3/uL (1.5-3.5) L 03/29/21 05:53 [place] # (Auto) 0.7 10^3/uL (0.0-1.0) 03/29/21 05:53 Eos # (Auto) 0.3 10^3/uL (0.0-0.7) 03/29/21 05:53 Baso # (Auto) 0.1 10^3/uL (0.0-0.1) 03/29/21 05:53 Absolute Nucleated RBC 0.00 x10^3/uL 03/29/21 05:53 Nucleated RBC % 0.0 /100WBC 03/29/21 05:53 Sodium 143 mmol/L (135-145) 03/29/21 05:53 Potassium 3.6 mmol/L (3.5-5.0) 03/29/21 05:53 Chloride 100 mmol/L (101-111) L 03/29/21 05:53 Carbon Dioxide 34 mmol/L (21-32) H 03/29/21 05:53 Anion Gap 9.0 (6-13) 03/29/21 05:53 BUN 29 mg/dL (6-20) H 03/29/21 05:53 Creatinine 0.6 mg/dL (0.4-1.0) 03/29/21 05:53 Estimated GFR (MDRD) 95 (>89) 03/29/21 05:53 Glucose 106 mg/dL (70-100) H 03/29/21 05:53 Calcium 9.0 mg/dL (8.5-10.3) 03/29/21 05:53 Magnesium 1.9 mg/dL (1.7-2.8) 03/23/21 02:17 Total Bilirubin 0.9 mg/dL (0.2-1.0) 03/23/21 02:17 AST 21 IU/L (10-42) 03/23/21 02:17 ALT 19 IU/L (10-60) 03/23/21 02:17 Alkaline Phosphatase 26 IU/L (42-121) L 03/23/21 02:17 Total Creatine Kinase 50 IU/L (22-269) 03/24/21 08:07 Troponin I High Sens 91.8 ng/L (2.3-14.8) H* 03/27/21 11:04 Total Protein 6.7 g/dL (6.7-8.2) 03/23/21 02:17 Albumin 3.7 g/dL (3.2-5.5) 03/23/21 02:17 Globulin 3.0 g/dL (2.1-4.2) 03/23/21 02:17 Albumin/Globulin Ratio 1.2 (1.0-2.2) 03/23/21 02:17 Triglycerides 103 mg/dL (-149) 03/27/21 05:34 Cholesterol 128 mg/dL (-199) 03/27/21 05:34 LDL Cholesterol, Calc 69 mg/dL (-129) 03/27/21 05:34 VLDL Cholesterol 21 mg/dL 03/27/21 05:34 HDL Cholesterol 38 mg/dL (60-) L 03/27/21 05:34 LDL/HDL Ratio 1.8 (<4.4) 03/27/21 05:34 Cholesterol/HDL Ratio 3.4 (<4.4) 03/27/21 05:34 Lipase 26 U/L (22-51) 03/23/21 02:17 Vitamin B12 106 pg/mL (180-914) L 03/23/21 02:17 Urine Color YELLOW 03/23/21 01:38 Urine Clarity SL. CLOUDY (CLEAR) 03/23/21 01:38 Urine pH 5.0 PH (5.0-7.5) 03/23/21 01:38 Ur Specific [place] >=1.030 (1.002-1.030) H 03/23/21 01:38 Urine Protein 30 mg/dL (NEGATIVE) H 03/23/21 01:38 Urine Glucose (UA) NEGATIVE mg/dL (NEGATIVE) 03/23/21 01:38 Urine Ketones NEGATIVE mg/dL (NEGATIVE) 03/23/21 01:38 Urine Occult Blood TRACE-INTA (NEGATIVE) 03/23/21 01:38 Urine Nitrite POSITIVE (NEGATIVE) H 03/23/21 01:38 Urine Bilirubin NEGATIVE (NEGATIVE) 03/23/21 01:38 Urine Urobilinogen 0.2 (NORMAL) E.U./dL (NORMAL) 03/23/21 01:38 Ur Leukocyte Esterase SMALL (NEGATIVE) H 03/23/21 01:38 Urine RBC 0-5 /HPF (0-5) 03/23/21 01:38 Urine WBC >25 /HPF (0-5) H 03/23/21 01:38 Ur Squamous Epith Cells MOD Squamous (<= Few) H 03/23/21 01:38 Urine Bacteria Many /HPF (None Seen) H 03/23/21 01:38 Ur Microscopic Review INDICATED 03/23/21 01:38 Urine Culture Comments NOT INDICATED 03/23/21 01:38 Nasal Adenovirus (PCR) NOT DETECTED 03/29/21 10:29 Nasal B. parapertussis DNA (PCR) NOT DETECTED 03/29/21 10:29 Nasal Coronavir 229E PCR NOT DETECTED 03/29/21 10:29 Nasal Coronavir HKU1 PCR NOT DETECTED 03/29/21 10:29 Nasal Coronavir NL63 PCR NOT DETECTED 03/29/21 10:29 Nasal Coronavir OC43 PCR NOT DETECTED 03/29/21 10:29 Nasal Enterovir/Rhinovir PCR NOT DETECTED 03/29/21 10:29 Nasal Influenza B PCR NOT DETECTED 03/29/21 10:29 Nasal Influenza A PCR NOT DETECTED 03/29/21 10:29 Nasal Parainfluen 1 PCR NOT DETECTED 03/29/21 10:29 Nasal Parainfluen 2 PCR NOT DETECTED 03/29/21 10:29 Nasal Parainfluen 3 PCR NOT DETECTED 03/29/21 10:29 Nasal Parainfluen 4 PCR NOT DETECTED 03/29/21 10:29 Nasal RSV (PCR) NOT DETECTED 03/29/21 10:29 Nasal B.pertussis DNA PCR NOT DETECTED 03/29/21 10:29 Nasal C.pneumoniae (PCR) NOT DETECTED 03/29/21 10:29 Rhett Human Metapneumo PCR NOT DETECTED 07/18/21 10:29 Nasal M.pneumoniae (PCR) NOT DETECTED 03/29/21 10:29 Nasal SARS-CoV-2 (PCR) NOT DETECTED 03/29/21 10:29
[2021-03-29] MEDS: METOPROLOL SUCCINATE 50 MG TABLET PO SCH (20:47)
[2021-03-29] MEDS: clonazePAM 0.5 MG TABLET PO SCH (20:47)
[2021-03-29] MEDS: MIRTAZAPINE 15 MG TABLET PO SCH (20:47)
[2021-03-29] MEDS: ALBUTEROL NEB 2.5 MG/3 ML INH PRN (21:13)
[2021-03-30] MEDS: ACETAMINOPHEN 325 MG TABLET PO PRN ×3 (01:16→20:51)
[2021-03-30] MEDS: SODIUM CHLORIDE FLUSH 0.9% 10 ML SYRINGE IVP SCH ×4 (01:18→23:31)
[2021-03-30 05:29] LABS: HCT - HEMATOCRIT 32.8 % (37.0-47.0); HGB - HEMOGLOBIN 10.6 g/dL (12.0-16.0); MEAN CORPUSCULAR HEMOGLOBIN 33.7 pg (27.0-31.0); MEAN CORPUSCULAR HGB CONC 32.3 g/dL (32.0-36.0); MEAN CORPUSCULAR VOLUME 104.1 fL (81.0-99.0); MEAN PLATELET VOLUME 9.8 fL (7.9-10.8); RED BLOOD COUNT 3.15 10^6/uL (4.20-5.40); RED CELL DISTRIBUTION WIDTH 12.8 % (12.0-15.0); WHITE BLOOD COUNT 8.7 x10^3/uL (4.8-10.8)
[2021-03-30] MEDS: METOPROLOL 5 MG/5 ML VIAL IVP PRN (05:31)
[2021-03-30] MEDS: SODIUM CHLORIDE FLUSH 0.9% 10 ML SYRINGE IVP PRN ×2 (05:32→09:08)
[2021-03-30 05:47] LABS: CALCIUM 8.5 mg/dL (8.5-10.3); CREATININE 0.7 mg/dL (0.4-1.0); POTASSIUM 3.9 mmol/L (3.5-5.0)
[2021-03-30 06:32] LABS: FOLATE 14.67 ng/mL (5.90 - >24.8)
[2021-03-30] MEDS: MULTIVITAMIN W/MINERALS TABLET PO SCH (08:21)
[2021-03-30] MEDS: CHOLECALCIFEROL 25 MCG TABLET PO SCH (08:22)
[2021-03-30] MEDS: DOCUSATE SODIUM 250 MG CAPSULE PO SCH (08:24)
[2021-03-30] MEDS: diltiaZEM CD 120 MG CAPSULE PO SCH (08:24)
[2021-03-30] MEDS: CALCIUM CARBONATE CHEW 500 MG TABLET PO SCH ×2 (08:25→20:53)
[2021-03-30] MEDS: APIXABAN 2.5 MG TABLET PO SCH ×2 (08:25→20:52)
[2021-03-30] MEDS: MEMANTINE 5 MG TABLET PO SCH ×2 (08:27→20:52)
[2021-03-30] MEDS: polyethylene glycoL 3350 17 GM PACKET PO SCH (08:30)
[2021-03-30] MEDS: SENNA 8.6 MG TABLET PO SCH ×3 (08:30→20:53)
[2021-03-30] MEDS: KETOROLAC 15 MG/ML VIAL IVP PRN (09:03)
[2021-03-30] MEDS: D5NS W/20 MEQ KCL 1,000 ML IV SCH (14:42)
--- NOTE | 2021-03-30 19:10 | PROVIDER PROGRESS NOTE ---
Assessment/Plan - Problem List (1) Hypotension due to hypovolemia Assessment/Plan: The patient had no urine output yesterday on morning shift Her systolic blood pressure dropped to 90 syst at midday yesterday. She got a fluid push of 500 cc normal saline. We started very slow IV fluids for rehydration, since she has severe pulm HTN Follow BMP daily. Will check for orthostasis, she may be lightheaded and that is why she is only partially cooperating with PT thus far 2) Intertrochanteric fracture of right hip Encounter type: initial encounter Fracture type: closed Fracture alignment: displaced Qualified Code(s): S72.141A - Displaced intertrochanteric fracture of right femur, initial encounter for closed fracture Assessment/Plan: She is POD #5 today. Orthopedics was pleased with the results. Continue with PT and OT. Pain meds were decreased so she was more awake, but is anxious Continue Eliquis for the Afib and for DVT prophylaxis. Plan is for SNF eventually for PT and OT rehab (3) Pulmonary hypertension Her Echo showed a 69 mmHg RV syst pressure , which is moderate-severe Pulmonary hypertension. She has a poor life expectancy with this Dx. Patient should have PCP and Cardiol F/U as outpatient (4) COPD Patient has a history of COPD, she is not in exacerbation Her COPD may have caused the pulm HTN. We added albuterol/ DuoNeb as needed, and supplemental oxygen as needed to keep O2 sats > 88% (5) Atrial septal defect Her Echo showed a foramen ovale. This may be secondary to the pulm HTN or a primary PFO defect. Patient may need a referral to Cardiology to evaluate and manage adfter Dch. (6) Elevated troponin Patient denied chest pain. Patient was hemodynamically stable until new low BP today. EKG showed A fibrillation without ST segment changing, no evidence to support Myocardial ischemia. Recently Echo show normal LV EF. This troponin elevation was likely demand ischemia from Afib with RVR (see below) We will continue home medication Eliquis, metoprolol, Continue telemetry to monitor patient. (7) Chronic atrial fibrillation Rate is now controlled after we resumed patient's home Cardizem and metoprolol. She is on anticoagulation. Continue telemetry to monitor patient (8) Osteoporosis Started calcium, vitamin D. After surgery Reclast injection for the year. (9) Anemia Will order B12 and folate levels and iron store labs and replace if low Follow H/H daily (10) Hypersomnolence due to substance Assessment/Plan: She received Morphine on POD #2 and was sleeping the entire day. Sleepiness resolved with stopping Morphine entirely and decreasing her Oxycodone dose. - Current Meds Current Meds: Current Medications Generic Name Dose Route Start Last Admin Trade Name Freq PRN Reason Stop Dose Admin Acetaminophen 650 mg 03/23/21 02:00 03/30/21 09:02 Acetaminophen 325 Mg Tablet PO 650 mg Q4HR PRN Administration Pain 1 to 4 Albuterol 2.5 mg 03/24/21 06:56 03/29/21 21:13 Albuterol Neb 2.5 Mg/3 Ml INH 2.5 mg RTQ4H PRN Administration Wheezing Apixaban 2.5 mg 03/25/21 21:00 03/30/21 08:25 Apixaban 2.5 Mg Tablet PO 2.5 mg BID RADHA Administration Calcium Carbonate/Glycine 500 mg 03/24/21 11:00 03/30/21 08:25 Calcium Carbonate Chew 500 Mg Tablet PO 500 mg BID RADHA Administration Cholecalciferol 50 mcg 03/24/21 11:00 03/30/21 08:22 Cholecalciferol 25 Mcg Tablet PO 50 mcg DAILY RADHA Administration Clonazepam 0.25 mg 03/27/21 21:00 03/29/21 20:47 Clonazepam 0.5 Mg Tablet PO 0.25 mg QPM RADHA Administration Diltiazem HCl 120 mg 03/24/21 09:00 03/30/21 08:24 Diltiazem Cd 120 Mg Capsule PO 120 mg DAILY RADHA Administration Docusate Sodium 250 - 500 mg 03/27/21 09:00 03/30/21 08:24 Docusate Sodium 250 Mg Capsule PO 250 mg DAILY RADHA Administration Haloperidol 1 mg 03/27/21 21:32 03/28/21 22:42 Haloperidol 5 Mg/Ml Vial IVP 1 mg Q6H PRN Administration Agitation Potassium Chloride/Dextrose/Sod Cl 1,000 mls @ 60 mls/hr 03/30/21 14:26 03/30 14:42 D5ns W/20 Meq Kcl IV 60 mls/hr .[id number] RADHA Administration Memantine 10 mg 03/27/21 10:00 03/30/21 08:27 Memantine 5 Mg Tablet PO 10 mg BID RADHA Administration Metoprolol Succinate 50 mg 03/24/21 21:00 03/29/21 20:47 Metoprolol Succinate 50 Mg Tablet PO 50 mg QPM RADHA Administration Metoprolol Tartrate 5 mg 03/24/21 07:59 03/30/21 05:31 Metoprolol 5 Mg/5 Ml Vial IVP 5 mg Q6H PRN Administration Tachycardia Mirtazapine 15 mg 03/24/21 21:00 03/29/21 20:47 Mirtazapine 15 Mg Tablet PO 15 mg QPM RADHA Administration Multivitamins/Minerals 1 tab 03/26/21 11:00 03/30/21 08:21 Multivitamin W/Minerals Tablet PO 1 tab DAILYWM RADHA Administration Oxycodone HCl 5 mg 03/28/21 11:43 03/30/21 01:18 Oxycodone 5 Mg Tablet PO 5 mg Q6HR PRN Administration Pain 5 to 7 Polyethylene Glycol 17 gm 03/26/21 09:00 03/30/21 08:30 Polyethylene Glycol 3350 17 Gm Packet PO Not Given DAILY RADHA Senna 8.6 - 17.2 mg 03/27/21 21:00 03/30/21 08:30 Senna 8.6 Mg Tablet PO Not Given BID RADHA Sodium Chloride 10 ml 03/23/21 02:00 03/30/21 09:08 Sodium Chloride Flush 0.9% 10 Ml Syringe IVP 10 ml PRN PRN Administration NEEDED PER PROVIDER ORDERS Sodium Chloride 10 ml 03/23/21 09:00 03/30/21 16:01 Sodium Chloride Flush 0.9% 10 Ml Syringe IVP Not Given 0100,0900,1700 RADHA - Lab Result Fish Bone Diagrams: 03/30/21 04:50 03/30/21 04:50 - Additional Planning My Orders: My Active Orders 03/30/21 11:13 Orthostatic [Vital Signs - Orthostatic] [RC] QSHIFT 03/30/21 14:26 D5ns W/20 Meq KCl 1,000 ml IV 60 mls/hr Subjective - Subjective Patient Reports: Feeling Better, Resting Comfortably, No Complaints (More alert and feel stronger) Objective Vital Signs: Vital Signs - 24 hr 03/29/21 03/29/21 03/29/21 20:45 21:10 23:35 Temperature 36.4 C L 36.4 C L Heart Rate 86 Heart Rate [ 106 H Brachial] Heart Rate [ 96 Monitoring electrodes] Heart Rate [ Radial] Respiratory 18 20 Rate Blood Pressure Blood Pressure 132/74 H 127/73 [Right Brachial artery] O2 Saturation 95 93 03/30/21 03/30/21 03/30/21 05:00 05:31 05:54 Temperature 36.8 C Heart Rate Heart Rate [ 94 Brachial] Heart Rate [ 124 H Monitoring electrodes] Heart Rate [ Radial] Respiratory 20 Rate Blood Pressure 132/81 H 130/83 H Blood Pressure 143/84 H 130/83 H [Right Brachial artery] O2 Saturation 92 03/30/21 03/30/21 03/30/21 07:46 12:18 17:00 Temperature 36.9 C 36.5 C 36.4 C L Heart Rate Heart Rate [ Brachial] Heart Rate [ Monitoring electrodes] Heart Rate [ 110 H 103 H 77 Radial] Respiratory 18 16 16 Rate Blood Pressure Blood Pressure 133/90 H 102/66 125/60 [Right Brachial artery] O2 Saturation 91 L 93 94 Oxygen O2 Source Room air I&O (Last 24 Hrs): Intake and Output Totals x24h 03/28/21 03/29/21 03/30/21 23:59 23:59 23:59 Intake Total 50 1220 780 Output Total 425 0 Balance -375 1220 780 General: Alert, Oriented x3, Other (Cachectic) HEENT: Mucous membr. moist/pink, Other (Skin tenting still present) Neck: Supple, Other ((+) JVD at 45 degree angle) Neuro: Alert, Non Focal Cardiovascular: Other (PMI vertically displaced, 1/6 syst murmur at LLSB) Respiratory: No respiratory distress, Breath sounds nml, Other (Ribs are all palpable) Abdomen: Normal bowel sounds, Soft Extremities: No edema, Other (Skin tenting present) - Results Results: Laboratory Results WBC 8.7 x10^3/uL (4.8-10.8) 03/30/21 04:50 RBC 3.15 10^6/uL (4.20-5.40) L 03/30/21 04:50 Hgb 10.6 g/dL (12.0-16.0) L 03/30/21 04:50 Hct 32.8 % (37.0-47.0) L 03/30/21 04:50 MCV 104.1 fL (81.0-99.0) H 03/30/21 04:50 MCH 33.7 pg (27.0-31.0) H 03/30/21 04:50 MCHC 32.3 g/dL (32.0-36.0) 03/30/21 04:50 RDW 12.8 % (12.0-15.0) 03/30/21 04:50 Plt Count 182 10^3/uL (130-450) 03/30/21 04:50 MPV 9.8 fL (7.9-10.8) 03/30/21 04:50 Neut # (Auto) 4.7 10^3/uL (1.5-6.6) 03/29/21 05:53 Lymph # (Auto) 0.8 10^3/uL (1.5-3.5) L 03/29/21 05:53 Branch # (Auto) 0.7 10^3/uL (0.0-1.0) 03/29/21 05:53 Eos # (Auto) 0.3 10^3/uL (0.0-0.7) 03/29/21 05:53 Baso # (Auto) 0.1 10^3/uL (0.0-0.1) 03/29/21 05:53 Absolute Nucleated RBC 0.00 x10^3/uL 03/29/21 05:53 Nucleated RBC % 0.0 /100WBC 03/29/21 05:53 Sodium 139 mmol/L (135-145) 03/30/21 04:50 Potassium 3.9 mmol/L (3.5-5.0) 03/30/21 04:50 Chloride 96 mmol/L (101-111) L 03/30/21 04:50 Carbon Dioxide 31 mmol/L (21-32) 03/30/21 04:50 Anion Gap 12.0 (6-13) 03/30/21 04:50 BUN 25 mg/dL (6-20) H 03/30/21 04:50 Creatinine 0.7 mg/dL (0.4-1.0) 03/30/21 04:50 Estimated GFR (MDRD) 79 (>89) L 03/30/21 04:50 Glucose 109 mg/dL (70-100) H 03/30/21 04:50 Calcium 8.5 mg/dL (8.5-10.3) 03/30/21 04:50 Magnesium 1.9 mg/dL (1.7-2.8) 03/23/21 02:17 Iron 41 ug/dL (28-170) 03/30/21 04:50 TIBC 246 ug/dL (250-450) L 03/30/21 04:50 % Saturation 17 % (20-50) L 03/30/21 04:50 Transferrin 176 mg/dL (192-382) L 03/30/21 04:50 Total Bilirubin 0.9 mg/dL (0.2-1.0) 03/23/21 02:17 AST 21 IU/L (10-42) 03/23/21 02:17 ALT 19 IU/L (10-60) 03/23/21 02:17 Alkaline Phosphatase 26 IU/L (42-121) L 03/23/21 02:17 Total Creatine Kinase 50 IU/L (22-269) 03/24/21 08:07 Troponin I High Sens 91.8 ng/L (2.3-14.8) H* 03/27/21 11:04 Total Protein 6.7 g/dL (6.7-8.2) 03/23/21 02:17 Albumin 3.7 g/dL (3.2-5.5) 03/23/21 02:17 Globulin 3.0 g/dL (2.1-4.2) 03/23/21 02:17 Albumin/Globulin Ratio 1.2 (1.0-2.2) 03/23/21 02:17 Triglycerides 103 mg/dL (-149) 03/27/21 05:34 Cholesterol 128 mg/dL (-199) 03/27/21 05:34 LDL Cholesterol, Calc 69 mg/dL (-129) 03/27/21 05:34 VLDL Cholesterol 21 mg/dL 03/27/21 05:34 HDL Cholesterol 38 mg/dL (60-) L 03/27/21 05:34 LDL/HDL Ratio 1.8 (<4.4) 03/27/21 05:34 Cholesterol/HDL Ratio 3.4 (<4.4) 03/27/21 05:34 Lipase 26 U/L (22-51) 03/23/21 02:17 Vitamin B12 529 pg/mL (180-914) 03/30/21 04:50 Folate 14.67 ng/mL (5.90 - >24.8) 03/30/21 04:50 Urine Color YELLOW 03/23/21 01:38 Urine Clarity SL. CLOUDY (CLEAR) 03/23/21 01:38 Urine pH 5.0 PH (5.0-7.5) 03/23/21 01:38 Ur Specific [place] >=1.030 (1.002-1.030) H 03/23/21 01:38 Urine Protein 30 mg/dL (NEGATIVE) H 03/23/21 01:38 Urine Glucose (UA) NEGATIVE mg/dL (NEGATIVE) 03/23/21 01:38 Urine Ketones NEGATIVE mg/dL (NEGATIVE) 03/23/21 01:38 Urine Occult Blood TRACE-INTA (NEGATIVE) 03/23/21 01:38 Urine Nitrite POSITIVE (NEGATIVE) H 03/23/21 01:38 Urine Bilirubin NEGATIVE (NEGATIVE) 03/23/21 01:38 Urine Urobilinogen 0.2 (NORMAL) E.U./dL (NORMAL) 03/23/21 01:38 Ur Leukocyte Esterase SMALL (NEGATIVE) H 03/23/21 01:38 Urine RBC 0-5 /HPF (0-5) 03/23/21 01:38 Urine WBC >25 /HPF (0-5) H 03/23/21 01:38 Ur Squamous Epith Cells MOD Squamous (<= Few) H 03/23/21 01:38 Urine Bacteria Many /HPF (None Seen) H 03/23/21 01:38 Ur Microscopic Review INDICATED 03/23/21 01:38 Urine Culture Comments NOT INDICATED 03/23/21 01:38 Nasal Adenovirus (PCR) NOT DETECTED 03/29/21 10:29 Nasal B. parapertussis DNA (PCR) NOT DETECTED 03/29/21 10:29 Nasal Coronavir 229E PCR NOT DETECTED 03/29/21 10:29 Nasal Coronavir HKU1 PCR NOT DETECTED 03/29/21 10:29 Nasal Coronavir NL63 PCR NOT DETECTED 03/29/21 10:29 Nasal Coronavir OC43 PCR NOT DETECTED 03/29/21 10:29 Nasal Enterovir/Rhinovir PCR NOT DETECTED 03/29/21 10:29 Nasal Influenza B PCR NOT DETECTED 03/29/21 10:29 Nasal Influenza A PCR NOT DETECTED 03/29/21 10:29 Nasal Parainfluen 1 PCR NOT DETECTED 03/29/21 10:29 Nasal Parainfluen 2 PCR NOT DETECTED 03/29/21 10:29 Nasal Parainfluen 3 PCR NOT DETECTED 03/29/21 10:29 Nasal Parainfluen 4 PCR NOT DETECTED 03/29/21 10:29 Nasal RSV (PCR) NOT DETECTED 03/29/21 10:29 Nasal B.pertussis DNA PCR NOT DETECTED 03/29/21 10:29 Nasal C.pneumoniae (PCR) NOT DETECTED 03/29/21 10:29 Rhett Human Metapneumo PCR NOT DETECTED 03/29/21 10:29 Nasal M.pneumoniae (PCR) NOT DETECTED 03/29/21 10:29 Nasal SARS-CoV-2 (PCR) NOT DETECTED 03/29/21 10:29
[2021-03-30] MEDS: METOPROLOL SUCCINATE 50 MG TABLET PO SCH (20:50)
[2021-03-30] MEDS: clonazePAM 0.5 MG TABLET PO SCH (20:52)
[2021-03-30] MEDS: MIRTAZAPINE 15 MG TABLET PO SCH (20:53)
[2021-03-31] MEDS: ALBUTEROL NEB 2.5 MG/3 ML INH PRN ×3 (00:08→13:01)
[2021-03-31] MEDS: D5NS W/20 MEQ KCL 1,000 ML IV SCH (09:25)
[2021-03-31] MEDS: ACETAMINOPHEN 325 MG TABLET PO PRN (09:25)
[2021-03-31] MEDS: CHOLECALCIFEROL 25 MCG TABLET PO SCH (09:25)
[2021-03-31] MEDS: CALCIUM CARBONATE CHEW 500 MG TABLET PO SCH (09:30)
[2021-03-31] MEDS: diltiaZEM CD 120 MG CAPSULE PO SCH (09:30)
[2021-03-31] MEDS: MULTIVITAMIN W/MINERALS TABLET PO SCH (09:30)
[2021-03-31] MEDS: MEMANTINE 5 MG TABLET PO SCH (09:30)
[2021-03-31] MEDS: APIXABAN 2.5 MG TABLET PO SCH (09:30)
[2021-03-31] MEDS: DOCUSATE SODIUM 250 MG CAPSULE PO SCH (09:33)
[2021-03-31] MEDS: polyethylene glycoL 3350 17 GM PACKET PO SCH (09:33)
[2021-03-31] MEDS: SODIUM CHLORIDE FLUSH 0.9% 10 ML SYRINGE IVP SCH (09:33)
--- NOTE | 2021-03-31 11:46 | Discharge Plan ---
"Discharge Plan for SNF / [facility] - Discharge Plan And Transition Orders Problem Reviewed?: Yes Disposition: 03 SNF DC/Xfer Condition: Stable Allergies and Adverse Reactions: Allergies Allergy/AdvReac Type Severity Reaction Status Date / Time No Known Drug Allergies Allergy Verified 03/23/21 00:10 Health Concerns: right hip repair, atrial septal defect and pulmonary hypertension, and afib Plan of Treatment: pt had right hip fracture and had right hip repaired at hospital. Pt may continue to have PT/OT, eliquis as her DVT prophylaxis, Follow-up orthopedic surgeon in 2 weeks or early as needed. Pt's ECHO reveals atrial septal defect and pulmonary hypertension. Pt may Follow-up with clothing trades workers as outpatient to manage. Care Goals: Stabilization, improvement/resolved of her medical medications Assessment: Discussed the care plan with patient, answered patient's questions, patient state she understand - SNF / [facility] Transition Orders Admit to (Facility): [facility] Under the care of (Name): Dr. Sherman Godwin Discharge Diagnosis: Right hip fracture, pulmonary hypertension, COPD, atrial septal defect, chronic atrial fibrillation, osteoporosis, anemia, Medicare Certification Statement: I certify that Post Hospital senior care care is medically necessary on a continuing basis for any of the conditions for which she/he is receiving care during hospitalization. Notify PCP of admission and forward orders to primary provider for signature. Weight on admission and: Daily Call PCP immediately if weight increases by: 2 kg Other Notification Orders: Call PCP immediately if patient develops dyspnea, chest pain/tightness or edema. House Bowel Program: Yes Additional Bowel Program Orders: If no BM after 2 days, nurse may give M.O.M. 30ml PO PRN and/or ducolax Supp 1 MN and/or AMADO 250mg P.O., and/or senna 1-2 tabs PO. On day 3 nurse may give repeat above order until residents constipation is resolved. Annual Influenza Vaccine (between May 13 and December 10): Yes Two-step PPD per [facility] [phone] or approved exception documents: Yes Treatments & Other Orders: pt had right hip fracture and had right hip repaired at hospital. Pt may continue to have PT/OT, eliquis as her DVT prophylaxis, Follow-up orthopedic surgeon in 2 weeks or early as needed. Pt's ECHO reveals atrial septal defect and pulmonary hypertension. Pt may Follow-up with clothing trades workers as outpatient to manage. Medication Orders: PLEASE REFER TO THE DISCHARGE MEDICATION LIST. Insulin Orders?: No - Medications New Prescriptions: oxyCODONE [Roxicodone] 5 mg PO Q6HR PRN #15 tablet PRN Reason: Pain 5 to 7 Multivitamin W/Minerals [Theragran M] 1 tab PO DAILYWM #30 tablet Calcium Carbonate [Tums (Calcium Carbonate 500mg)] 500 mg PO BID #30 tablet Cholecalciferol [Vitamin D3] 50 mcg PO DAILY #30 tablet - Diet Type: Geriatric Texture: Regular Liquids: Thin May have monthly special meal: Yes - Therapies | Activity Therapy: Evaluation | Treat if indicated: PT, OT Rehabilitation Potential: Maximize functional status Activity: Activity as Tolerated"
[2021-03-31 12:08] VITALS: BP 140/65
--- NOTE | 2021-03-31 12:12 | DISCHARGE SUMMARY ---
"Discharge Summary Admit Date: 03/23/21 Discharge Date: 03/31/21 Discharging Provider: Parker santos Primary Care Provider: Denise Verdugo Condition at Discharge: Stable Discharge Disposition: 03 SNF DC/Xfer Discharge Facility Name: [facility] - DIAGNOSES Discharge Diagnoses with Status of Each Condition: (1) Intertrochanteric fracture of right hip Patient had mechanical fall, patient had fracture on right hip, patient had right hip repair by orthopedic surgeon. PT and OT evaluated and treated for patient, patient slowly progress. Patient was recommended to discharge to SNF. Continue Eliquis for the Afib and for DVT prophylaxis. Follow-up with orthopedic surgeon office in 2 weeks or earlier as needed. (2) Pulmonary hypertension Her Echo showed a 69 mmHg RVSP , which is moderate-severe Pulmonary hypertension. She has a poor life expectancy with this Dx. Patient should have PCP and Cardiol F/U as outpatient (3) COPD stable. Patient has a history of COPD, she is not in exacerbation, continue home meds (4) Atrial septal defect Her Echo showed a foramen ovale. This may be secondary to the pulm HTN or a primary PFO defect. Patient may need a referral to Cardiology to evaluate (5) Elevated troponin Patient denied chest pain. Patient was hemodynamically stable. EKG showed A fibrillation without ST segment changing, no evidence to support Myocardial ischemia. Recently Echo show normal LV EF. This troponin elevation was likely demand ischemia from Afib with RVR (see below) resume home medication Eliquis, metoprolol, (6) Chronic atrial fibrillation stable, Rate is now controlled, resumed patient's home Cardizem and metoprolol, and Eliquis (7) Osteoporosis Started calcium, vitamin D (8) Anemia stable, continue PCP management. - HPI History of Present Illness: refer from Dr. Wallis's HPI on 03/23/21 This is an elderly lady who has atrial fibrillation and a history of left breast infiltrating ductal carcinoma that is followed by [facility] cardiology and is on Eliquis. She has no history of congestive heart failure, heart attack, stroke. However she did have a TIA and an MRI done April 2020 has no acute or subacute infarction. Age-appropriate brain parenchymal volume loss is present. She has focal volume loss and encephalomalacia involving the posterior aspect of the right frontal lobe. 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 She lives in her own home. Stood up to go to bed this evening when she tripped and fell. She lay on the ground until she was able to call family. EMS was called and they brought her to the emergency room where she was evaluated by Dr. Rizvi. There is no loss of consciousness, it was a mechanical fall, and she did not hit her head. Pain was specifically to the hip. Temperature is 36.2. Heart rate 98. Blood pressure 161/144. Respirations 20. 88% on room air. She requires 2 L to bring her up to 99% O2 sat. She was a well-developed well-nourished elderly female to him. She had an irregularly irregular heart rate. No respiratory distress and negative lung findings. A benign abdomen. Shortening and external rotation of the right lower extremity with pain to palpation of the trochanter and pain with movement of the right hip. She was alert, oriented, able to follow commands and elusive historian. Urinalysis is contaminated with squamous epithelial cells. CMP is normal. CBC is normal. Plain film report is not present in the EMR but Dr. Rizvi interpreted as an intertrochanteric hip fracture. He has spoken to Dr. Montesinos who is not on- call. However Dr. Montesinos is willing to see the patient tomorrow and operate at the appropriate time. The patient denies chest pain, shortness of breath, edema, cough, no history of heart attack, no history of valvular heart disease. - CONSULTS | PROCEDURES Consultations: Dr. Tabor Procedures: Open reduction internal fixation right hip fracture - ALLERGIES Allergies/Adverse Reactions: Allergies Allergy/AdvReac Type Severity Reaction Status Date / Time No Known Drug Allergies Allergy Verified 03/23/21 00:10 - MEDICATIONS Home Medications: Ambulatory Orders Medication Instructions Recorded Confirmed Diltiazem HCl [Cartia Xt] 120 mg PO DAILY 10/30/14 03/23/21 Albuterol Sulfate [Albuterol 2 puffs INH DAILY PRN 07/09/19 03/23/21 Sulfate Hfa] Apixaban [Eliquis] 2.5 mg PO BID 03/23/21 03/23/21 Memantine HCl [Namenda] 10 mg PO BID 03/23/21 03/23/21 Metoprolol Succinate [Toprol Xl] 50 mg PO QPM 03/23/21 03/23/21 Mirtazapine 15 mg PO QPM 03/23/21 03/23/21 clonazePAM [Clonazepam] 0.5 tab PO BID 03/23/21 03/23/21 Calcium Carbonate [Tums (Calcium 500 mg PO BID #30 tablet 03/31/21 Carbonate 500mg)] Cholecalciferol [Vitamin D3] 50 mcg PO DAILY #30 tablet 03/31/21 Multivitamin W/Minerals [Theragran 1 tab PO DAILYWM #30 tablet 03/31/21 M] oxyCODONE [Roxicodone] 5 mg PO Q6HR PRN #15 tablet 03/31/21 - PHYSICAL EXAM AT DISCHARGE General Appearance: positive: No acute distress, Alert. negative: Lethargic Eyes Bilateral: positive: Normal inspection, PERRL, No lid inflammation ENT: positive: ENT inspection nml, No signs of dehydration. negative: Purulent nasal drainage Neck: positive: Nml inspection, Trachea midline. negative: Thyromegaly, Tracheal deviation Respiratory: positive: Chest non-tender, No respiratory distress. negative: Wheezes Cardiovascular: positive: Regular rate & rhythm, No murmur. negative: Tachycardia, Bradycardia, Systolic murmur, Diastolic murmur Peripheral Pulses: positive: 2+ Abdomen: positive: Non-tender, Nml bowel sounds, No distention. negative: Tenderness Back: positive: Nml inspection Skin: positive: Color nml, Warm, Dry. negative: Cyanosis Extremities: positive: Non-tender, Nml appearance. negative: Calf tenderness Neurologic/Psychiatric: positive: Oriented x3, Sensation nml, Mood/affect nml. negative: Weakness, Sensory loss, Facial droop, Slurred/abnml speech, Depressed mood/affect - LABS Result Diagrams: 03/30/21 04:50 03/30/21 04:50 - FOLLOW UP Follow Up: pt had right hip fracture and had right hip repaired at hospital. Pt may continue to have PT/OTwiley as her DVT prophylaxis, Follow-up orthopedic surgeon in 2 weeks or early as needed. Pt's ECHO reveals atrial septal defect and pulmonary hypertension. Pt may Follow-up with community relations officer as outpatient to manage. - TIME SPENT Time Spent in Discharge (Minutes): 30"
== END 2021-03-31 13:30 | DRG 480 ==
LOC: EDUNIT# → ED 00:08 → MS3 02:00
PROVIDERS: ADMIT Specialist; ATTEND Nurse Practitioner Gerontology
PROC: 0QS604Z Reposition Right Upper Femur with Internal Fixation Device, Open Approach (ICD-10-PCS; principal; 2021-03-25 07:30)
DX: S72.141A Displaced intertrochanteric fracture of right femur, initial encounter for closed fracture (principal); W18.30XA Fall on same level, unspecified, initial encounter; J96.91 Respiratory failure, unspecified with hypoxia; I48.91 Unspecified atrial fibrillation; Q21.1 Atrial septal defect; R06.00 Dyspnea, unspecified; R05 Cough; R06.2 Wheezing; J43.9 Emphysema, unspecified; I24.8 Other forms of acute ischemic heart disease; R09.02 Hypoxemia; I48.20 Chronic atrial fibrillation, unspecified; Z68.1 Body mass index [BMI] 19.9 or less, adult; W01.0XXA Fall on same level from slipping, tripping and stumbling without subsequent striking against object, initial encounter; Y92.009 Unspecified place in unspecified non-institutional (private) residence as the place of occurrence of the external cause; I27.20 Pulmonary hypertension, unspecified; Z79.01 Long term (current) use of anticoagulants; M81.0 Age-related osteoporosis without current pathological fracture; D64.9 Anemia, unspecified; Z86.73 Personal history of transient ischemic attack (TIA), and cerebral infarction without residual deficits; Z79.899 Other long term (current) drug therapy; Z85.3 Personal history of malignant neoplasm of breast; Z66 Do not resuscitate; R63.4 Abnormal weight loss; J44.9 Chronic obstructive pulmonary disease, unspecified; F11.982 Opioid use, unspecified with opioid-induced sleep disorder; I95.89 Other hypotension; E86.1 Hypovolemia
CPT/HCPCS: 36415; 51702; 71045; 73502; 80048; 80053; 80061; 81001; 82550; 82607; 82746; 83540; 83690; 83735; 84466; 84484; 85014; 85018; 85025; 85027; 87631; 93005; 93306; 94640; 97110; 97161; 97166; 97530; 99284; 99285; A9270; C1713; J0690; J7120; 0202U; 81003; 83721; 87086

== ENCOUNTER 2021-03-31 13:33 | Outpatient (CLI) | payer MEDICARE, BC | END 2021-03-31 13:34 | disposition short-term general hospital (02) | LOC: EMS 13:33 | PROVIDERS: ATTEND Nurse Practitioner Gerontology | DX: S72.141D Displaced intertrochanteric fracture of right femur, subsequent encounter for closed fracture with routine healing (principal); Z74.01 Bed confinement status | CPT/HCPCS: A0425; A0428 ==

== ENCOUNTER 2021-04-12 19:19 | Outpatient (CLI) | payer MEDICARE, BC | END 2021-04-12 19:20 | disposition EMS.NT | LOC: EMS 19:19 | DX: I10 Essential (primary) hypertension (principal) ==

== ENCOUNTER 2021-04-21 07:00 | Outpatient (CLI) | payer MEDICARE, BC ==
[2021-04-21 21:22] LABS: BILIRUBIN,URINE NEGATIVE (NEGATIVE); GLUCOSE, URINE (UA) NEGATIVE (NEGATIVE); KETONES,URINE (UA) NEGATIVE (NEGATIVE); LEUKOCYTE ESTERASE, URINE LARGE (NEGATIVE); NITRITE,URINE NEGATIVE (NEGATIVE); OCCULT BLOOD,URINE SMALL (NEGATIVE); PH,URINE 6.5 PH (5.0-7.5); PROTEIN,URINE TRACE mg/dL (NEGATIVE); UROBILINOGEN,URINE 1 (NORMAL) E.U./dL (NORMAL)
[2021-04-21 21:29] LABS: CLARITY,URINE CLOUDY (CLEAR); SQUAMOUS EPITHELIAL CELL,UR FEW Squamous (<= Few); WBC,URINE >25 /HPF (0-5)
[2021-04-21 21:30] LABS: BACTERIA,URINE Many /HPF (None Seen)
== END 2021-04-21 23:59 | disposition home or self-care (01) ==
LOC: LAB.R 07:00
DX: N39.0 Urinary tract infection, site not specified (principal)
CPT/HCPCS: 81001; 81003; 87077; 87086; 87181

== ENCOUNTER 2021-04-23 19:51 | Outpatient (CLI) | payer MEDICARE, BC ==
[2021-04-23 21:27] LABS: BASOPHILS # (AUTO) 0.1 10^3/uL (0.0-0.1); BASOPHILS % (AUTO) 1.1 %; EOSINOPHILS # (AUTO) 0.2 10^3/uL (0.0-0.7); EOSINOPHILS % (AUTO) 2.2 %; HCT - HEMATOCRIT 33.1 % (37.0-47.0); HGB - HEMOGLOBIN 10.5 g/dL (12.0-16.0); LYMPHOCYTES % (AUTO) 14.8 %; MEAN CORPUSCULAR HEMOGLOBIN 34.3 pg (27.0-31.0); MEAN CORPUSCULAR HGB CONC 31.7 g/dL (32.0-36.0); MEAN CORPUSCULAR VOLUME 108.2 fL (81.0-99.0); MEAN PLATELET VOLUME 10.2 fL (7.9-10.8); MONOCYTES # (AUTO) 0.8 10^3/uL (0.0-1.0); MONOCYTES % (AUTO) 11.9 %; NEUTROPHILS # (AUTO) 4.9 10^3/uL (1.5-6.6); NEUTROPHILS % (AUTO) 69.7 %; PLT - PLATELET COUNT 183 10^3/uL (130-450); RED BLOOD COUNT 3.06 10^6/uL (4.20-5.40); RED CELL DISTRIBUTION WIDTH 13.4 % (12.0-15.0)
[2021-04-23 21:33] LABS: CALCIUM 9.4 mg/dL (8.5-10.3); CREATININE 0.6 mg/dL (0.4-1.0); POTASSIUM 3.9 mmol/L (3.5-5.0)
== END 2021-04-23 23:59 | disposition home or self-care (01) ==
LOC: LAB.R 19:51
PROVIDERS: ATTEND Family Medicine
DX: I10 Essential (primary) hypertension (principal); I48.91 Unspecified atrial fibrillation; R63.4 Abnormal weight loss
CPT/HCPCS: 80048; 85025

== ENCOUNTER 2021-06-16 10:40 | Outpatient (CLI) | payer MEDICARE, BC ==
--- NOTE | 2021-06-16 15:13 | XRAY Report ---
PROCEDURE: Hip w/Pelvis 2-3V RT INDICATIONS: FRACTURE OF RIGHT FEMUR TECHNIQUE: AP pelvis with AP and lateral views of the right hip. COMPARISON: Right hip radiographs 03/23/2021 FINDINGS: Bones: Postsurgical changes are seen from internal fixation of the right proximal femur with restorat ion of anatomic alignment. There is generalized osteopenia. No acute osseous abnormality is seen. Deg enerative changes are noted in the spine. Soft tissues: The visualized bowel gas pattern is normal. No suspicious soft tissue calcifications. A pessary device is noted projecting over the pelvis. IMPRESSION: Postsurgical changes from right proximal femoral fracture fixation with improved alignme nt. No new osseous abnormality. Reviewed by: Christian Lemons MD on 06/16/2021 3:12 PM PDT Approved by: Christian Lemons MD on 06/16/2021 3:12 PM PDT Station ID: [id number]
== END 2021-06-16 10:41 | disposition home or self-care (01) ==
LOC: DI.N 10:40
PROVIDERS: ATTEND Orthopaedic Surgery
DX: S72.141D Displaced intertrochanteric fracture of right femur, subsequent encounter for closed fracture with routine healing (principal)

== ENCOUNTER 2021-06-17 10:16 | Emergency (ER) | payer MEDICARE, BC ==
[2021-06-17 10:43] VITALS: BP 121/59
--- NOTE | 2021-06-17 10:46 | ED Physician Documentation ---
PD HPI FEMALE - Stated complaint Stated Complaint: FEMALE - Chief complaint Chief Complaint: UTI - History obtained from History obtained from: Patient, Family - Additional information Additional information: 86-year-old woman presents accompanied by daughter with mildly increased confusion, urinary frequency, and foul-smelling urine over the last few days. Not associate seated with abdominal or flank pain or fevers. 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 Status post lumpectomy, declines chemo.), Other () : None HEENT: None Psych: None Musculoskeletal: None Derm: None - Past Surgical History Past Surgical History: Yes General: Colonoscopy /MIRROR INSPECTOR: Other HEENT: Tonsil/Adenoidectomy - Present Medications Home Medications: Ambulatory Orders Medication Instructions Recorded Confirmed Diltiazem HCl [Cartia Xt] 120 mg PO DAILY 10/30/14 03/23/21 Albuterol Sulfate [Albuterol 2 puffs INH DAILY PRN 07/09/19 03/23/21 Sulfate Hfa] Apixaban [Eliquis] 2.5 mg PO BID 03/23/21 03/23/21 Memantine HCl [Namenda] 10 mg PO BID 03/23/21 03/23/21 Metoprolol Succinate [Toprol Xl] 50 mg PO QPM 03/23/21 03/23/21 Mirtazapine 15 mg PO QPM 03/23/21 03/23/21 clonazePAM [Clonazepam] 0.5 tab PO BID 03/23/21 03/23/21 Calcium Carbonate [Tums (Calcium 500 mg PO BID #30 tablet 03/31/21 Carbonate 500mg)] Cholecalciferol [Vitamin D3] 50 mcg PO DAILY #30 tablet 03/31/21 Multivitamin W/Minerals [Theragran 1 tab PO DAILYWM #30 tablet 03/31/21 M] oxyCODONE [Roxicodone] 5 mg PO Q6HR PRN #15 tablet 03/31/21 Ciprofloxacin [Cipro] 250 mg PO Q12H #6 tablet 06/17/21 - Allergies Allergies/Adverse Reactions: Allergies Allergy/AdvReac Type Severity Reaction Status Date / Time No Known Drug Allergies Allergy Verified 06/17/21 10:43 - Social History Does the pt smoke?: No Smoking Status: Never smoker Does the pt drink ETOH?: No Does the pt have substance abuse?: No - Immunizations Immunizations are current?: No Immunizations: TDAP >10years/unknown - POLST Patient has POLST: No POLST Status: DNR (Patient states she is DNR. Daughter at the bedside endorses that mom is lucid, competent enough to make that decision and that will be written in the chart.) PD ED PE NORMAL - Vitals Vital signs reviewed: Yes - General General: No acute distress, Well developed/nourished - Abdomen Abdomen: Soft, Non tender - Back Back: No CVA TTP - Neuro Neuro: Alert and oriented X 3, Normal speech Results - Vitals Vitals: Vital Signs - 24 hr 06/17/21 10:30 Temperature 36.1 C L Heart Rate 65 Respiratory 16 Rate Blood Pressure 121/59 L O2 Saturation 93 Oxygen O2 Source Room air PD MEDICAL DECISION MAKING - ED course ED course: Per RN only had about 20 mL in the bladder and only about 5 mL was obtained, only enough for culture, but was obviously purulent so we will culture and treat in the interim. Departure - Departure Disposition: 01 Home, Self Care Clinical Impression: Cystitis Condition: Good Record reviewed to determine appropriate education?: Yes Instructions: ED UTI Cystitis Female Prescriptions: Ciprofloxacin [Cipro] 250 mg PO Q12H #6 tablet Comments: Prescription sent electronically to [facility] in [place]. We will culture your urine, the results should be done in 48-72 hours. If an antibiotic change is necessary we will call you. Return if worse in the meantime, especially if you develop increasing flank pain, fevers, or cannot keep down the medication. Call your doctor to arrange a follow-up appointment, make the next available appointment. In the interim, return anytime if worse or if new symptoms develop.
[2021-06-17] MEDS ORDERED: CIPROFLOXACIN 250 MG TABLET PO STA (11:26)
== END 2021-06-17 11:42 | disposition home or self-care (01) ==
LOC: ED 10:16
DX: N30.90 Cystitis, unspecified without hematuria (principal); Z66 Do not resuscitate
CPT/HCPCS: 51701; 87086; 99283; A9270; 81001; 81003

== ENCOUNTER 2021-07-28 17:29 | Outpatient (CLI) | payer OTHER | END 2021-07-28 17:30 | disposition EMS.NT | LOC: EMS 17:29 | DX: Z02.89 Encounter for other administrative examinations (principal) ==